=== PATIENT | female | born 1945 | race Caucasian/White ===

== ENCOUNTER 2017-02-03 21:20 | Inpatient (IN) ==
--- NOTE | 2017-02-03 22:16 | Emergency Department Note ---
Disposition Clinical Impression: Nausea and vomiting, Colitis, Diarrhea Disposition: Admitted As Inpatient Condition: Fair Referrals: NO,PCP [Primary Care Provider] - Forms: Work/School Release, ED Satisfaction Letter Time of Disposition: 00:24 Abdominal Pain HPI - General Chief Complaint: ED Abdominal Pain Stated Complaint: "Abd Pain/N/V/High BP" Time Seen by Provider: 02/03/17 21:58 Source: patient Mode of arrival: ambulatory Limitations: no limitations Nursing Notes Reviewed: Yes Vital Signs Reviewed: Yes - History of Present Illness HPI Narrative: This is a 71-year-old female who presents with abdominal pain in the upper abdomen with associated nausea and vomiting. Patient had a vagal episode in the lobby after vomiting where her blood pressure dropped and she became diaphoretic and weak. Patient states she hurts all over. Patient denies any diarrhea states she has actually been constipated. Patient has not had any urinary symptoms. Patient denies any chest pain or shortness of breath. Patient is a poor historian. Pt Subjective Complaint: abdominal pain Onset (ago): hour(s) (started this AM) Consistency: constant Location: epigastric Pain Severity: moderate Pain Scale: 8 - Related Data Allergies Allergy/AdvReac Type Severity Reaction Status Date / Time fexofenadine Allergy See Verified 12/22/16 12:05 [From Angie-D 12 Hour] Comments meperidine [From Demerol] Allergy Hives Verified 12/22/16 12:05 Nickel Allergy Rash Verified 12/22/16 12:05 nitrofurantoin Allergy Hives Verified 12/22/16 12:05 pseudoephedrine Allergy See Verified 12/22/16 12:05 [From Angie-D 12 Hour] Comments acetaminophen [From Tylenol] AdvReac Dizziness Verified 12/22/16 12:05 ampicillin AdvReac Dizziness Verified 02/03/17 22:02 bupivacaine [From Marcaine] AdvReac Hypotension Verified 02/03/17 22:02 cephalexin AdvReac Nausea Verified 02/03/17 22:02 ciprofloxacin [From Cipro] AdvReac Nausea Verified 02/03/17 22:02 clarithromycin [From Biaxin] AdvReac Nausea Verified 02/03/17 22:02 codeine AdvReac Nausea Verified 02/03/17 22:02 Erythromycin Base AdvReac Nausea Verified 02/03/17 22:02 esomeprazole [From Nexium] AdvReac Nausea Verified 02/03/17 22:02 estrogens, conjugated AdvReac Gastrointestinal Verified 02/03/17 22:02 [From Premarin] Upset Iodinated Contrast Media - AdvReac Nausea Verified 02/03/17 22:02 Oral and iodine AdvReac Nausea Verified 12/22/16 12:05 lidocaine AdvReac Hypotension Verified 12/22/16 12:05 lisinopril AdvReac Hypertensio Verified 12/22/16 12:05 n metformin AdvReac Dizziness Verified 12/22/16 12:05 moxifloxacin [From Avelox] AdvReac Nausea Verified 12/22/16 12:05 Oxycodone AdvReac Dizziness Verified 12/22/16 12:05 Paroxetine [From Paxil] AdvReac Nausea Verified 12/22/16 12:05 Penicillins AdvReac Dizziness Verified 12/22/16 12:05 Prilocaine AdvReac Hypotension Verified 12/22/16 12:05 prochlorperazine AdvReac Blurry Verified 12/22/16 12:05 [From Compazine] Vision Sulfa (Sulfonamide AdvReac Nausea Verified 12/22/16 12:05 Antibiotics) sulfamethoxazole AdvReac Nausea Verified 12/22/16 12:05 [From Bactrim] telmisartan [From Micardis] AdvReac Hypertensio Verified 12/22/16 12:05 n Tetracycline AdvReac Nausea Verified 12/22/16 12:05 trimethoprim [From Bactrim] AdvReac Nausea Verified 12/22/16 12:05 All systems ED: reviewed and negative except as stated. Constitutional: Reports: weakness. Denies: fever, chills, weight change Eyes: Denies: eye pain, eye discharge, vision change ENT ED: Denies: ear pain, throat pain, dental pain, hearing loss, epistaxis, congestion, dysphagia Cardiovascular: Denies: chest pain, palpitations, dyspnea on exertion, edema, syncope Respiratory: Denies: cough, dyspnea, wheezes, hemoptysis, stridor Gastrointestinal: Reports: abdominal pain, nausea, vomiting. Denies: diarrhea, constipation, hematemesis, melena, hematochezia Genitourinary: Denies: dysuria, frequency, hematuria, discharge Musculoskeletal: Reports: myalgia. Denies: back pain, neck pain, arthralgia Integumentary: Reports: other (sweating). Denies: rash, abrasion, lesions Neurological: Denies: headache, weakness, numbness, paresthesias, confusion, abnormal gait, vertigo Psychiatric: Denies: anxiety, depression, suicidal thoughts, homicidal thoughts , auditory hallucinations, visual hallucinations Endocrine: Denies: fatigue Hematological/Lymphatic: Denies: easy bleeding, easy bruising Allergic/Immunologic: Denies: facial swelling, urticaria Abdominal Pain PMH - Past Medical History Medical history: Reports: CVA, diabetes, hyperlipidemia, other Female Surgical History: Reports: appendectomy, hysterectomy - Social History Smoking status: Never smoker Alcohol use: Reports: none Drug use: Reports: none Physical Exam - General Limitations: no limitations General appearance: alert, in distress (yelling out for someone to help her) - Head Head exam: atraumatic, normocephalic, normal inspection - Eye Eye exam: Present: normal appearance, PERRL, EOMI - ENT ENT exam: normal exam, normal oropharynx, mucous membranes moist - Expanded ENT Exam External ear exam: Present: normal external inspection Mouth exam: Present: normal external inspection Teeth exam: Present: normal inspection Throat exam: Present: normal inspection - Neck Neck exam: Present: normal inspection, full ROM, trachea midline - Chest Chest inspection: Present: normal inspection, symmetric chest wall rise - Respiratory Respiratory exam: Present: normal lung sounds bilaterally - Cardiovascular Cardiovascular exam: Present: regular rate, normal rhythm, normal heart sounds - Abdominal Exam Abdominal exam: Present: soft, tenderness. Absent: distention, guarding, rebound, rigidity Abdominal tenderness: Present: RUQ, LUQ, epigastrium - Extremities Exam Extremities exam: Present: normal inspection, full ROM. Absent: tenderness, pedal edema - Expanded Upper Extremity Exam Shoulder exam: Present: normal inspection, full ROM Arm exam: Present: normal inspection, full ROM Elbow exam: Present: normal inspection, full ROM Forearm/Wrist exam: Present: normal inspection, full ROM Hand exam: Present: normal inspection, full ROM Vascular exam: Normal: capillary refill, radial pulse - Expanded Lower Extremity Exam Hip/Pelvis exam: Present: normal inspection, full ROM Upper leg exam: Present: normal inspection, full ROM Knee exam: Present: normal inspection, full ROM Lower leg exam: Present: normal inspection, full ROM Ankle exam: Present: normal inspection, full ROM Foot/toe exam: Present: normal inspection, full ROM Neurovascular/Tendon exam: Absent: motor deficit, sensory deficit, tendon deficit - Back Exam Back exam: Present: normal inspection, full ROM. Absent: tenderness - Neurological Exam Neurological exam: Present: alert, oriented X3 - Expanded Neurological Exam Patient oriented to: Present: person, place, time Coma Scale Eye Opening: Spontaneous Coma Scale Motor Response: Obeys Commands Coma Scale Verbal Response: Oriented Coma Scale Total: 15 - Psychiatric Psychiatric exam: Present: normal affect, normal mood - Skin Skin exam: Present: warm, intact, diaphoresis, pallor Course - Consultations Consultation #1: I spoke with the hospitalist Dr. Mary Grace lloyd to admit. Time: 00:24 Vital Signs Temperature 97.7 F 02/03/17 21:56 Pulse Rate 73 02/03/17 21:56 Respiratory Rate 20 02/03/17 21:56 Blood Pressure 81/48 02/03/17 21:56 O2 Sat by Pulse Oximetry 95 02/03/17 21:56 Temperature 97.7 F 02/03/17 21:56 Pulse Rate 73 02/03/17 21:56 Respiratory Rate 20 02/03/17 21:56 Blood Pressure 81/48 02/03/17 21:56 O2 Sat by Pulse Oximetry 95 02/03/17 21:56 Oxygen Delivery Oxygen Delivery Room Air Abdominal Pain - Medical Records Medical records reviewed: Yes I reviewed the patient's medical records. - Lab Data Lab results reviewed: Yes I reviewed the patient's lab results. Result diagrams: 02/03/17 22:28 02/03/17 22:28 Lab Results 02/03/17 02/03/17 02/03/17 Range/Units 22:00 22:28 22:28 WBC 15.0 H (4.3-11.1) K/mcL RBC 5.02 H (3.82-4.97) M/mcL Hgb 14.7 (11.5-15.4) g/dL Hct 43.8 (35.3-44.9) % MCV 87.3 (83.0-100.0) fL MCH 29.3 (28.0-33.3) pg MCHC 33.6 (31.6-35.5) g/dL RDW 12.7 (11.5-14.5) % Plt Count 258 (140-400) K/mcL MPV 8.8 L (9.4-12.4) fL Immature Gran % 0.5 (0-4) % Seg Neutrophils % 71.0 % Lymphocytes % 18.8 % Monocytes % 8.3 % Eosinophils % 0.9 % Basophils % 0.5 % Neutrophils # 10.6 H (1.6-8.9) K/mcL Lymphocytes # 2.8 (0.6-4.6) K/mcL Monocytes # 1.2 (0.0-1.3) K/mcL Eosinophils # 0.1 (0.0-0.6) K/mcL Basophils # 0.1 (0.0-0.2) K/mcL PT (9.4-12.1) Seconds INR APTT (26.0-36.0) Seconds Sodium 130 L (136-145) mEq/L Potassium 4.0 (3.5-4.5) mEq/L Chloride 100 (98-109) mEq/L Carbon Dioxide 19 (19-29) mEq/L BUN 14 (7-20) mg/dL Creatinine 0.96 (0.57-1.11) mg/dL Est GFR ( Amer) > 60 (> 60) Est GFR (Non-Af Amer) 57 L (> 60) BUN/Creatinine Ratio 15 (6-26) Glucose 191 H (70-99) mg/dL Calculated Osmolality 276 L (280-300) Calcium 10.4 (8.6-10.8) mg/dL Total Bilirubin 0.6 (0.2-1.2) mg/dL Direct Bilirubin 0.2 (0.0-0.5) mg/dL Indirect Bilirubin 0.4 (0.0-1.2) mg/dL AST 15 (5-34) Units/L ALT 15 (0-55) Units/L Alkaline Phosphatase 76 (38-126) Units/L Troponin I (0-0.03) ng/mL Serum Total Protein 7.1 (6.0-8.3) g/dL Albumin 4.1 (3.5-5.0) g/dL Globulin 3.0 (2.4-3.5) g/dL Albumin/Globulin Ratio 1.4 (1.1-2.2) Lipase 49 (8-78) Units/L Urine Color Dark Yellow (Yellow) Urine Clarity Cloudy A (Clear) Urine pH 7.0 (5.0-8.0) pH Units Ur Specific [place] 1.015 (1.010-1.025) Urine Protein Trace (Neg-Trace) mg/dL Urine Glucose (UA) 100 H (Normal) mg/dL Urine Ketones Negative (Negative) mg/dL Urine Blood Negative (Negative) Urine Nitrite Negative (Negative) Urine Bilirubin Negative (Negative) Urine Urobilinogen Normal (Normal) mg/dL Ur Leukocyte Esterase Moderate H (Negative) Urine Microscopic RBC 5-15 H (0-3) per hpf Urine Microscopic WBC 15-30 H (0-3) per hpf Ur Squamous Epith Cells Moderate H (None-Few) per lpf Urine Bacteria None Seen (None-Few) per hpf Hyaline Casts None Seen (None-Few) per lpf Ur Culture Indicated? YES A (NO) 02/03/17 02/03/17 Range/Units 22:28 22:28 WBC (4.3-11.1) K/mcL RBC (3.82-4.97) M/mcL Hgb (11.5-15.4) g/dL Hct (35.3-44.9) % MCV (83.0-100.0) fL MCH (28.0-33.3) pg MCHC (31.6-35.5) g/dL RDW (11.5-14.5) % Plt Count (140-400) K/mcL MPV (9.4-12.4) fL Immature Gran % (0-4) % Seg Neutrophils % % Lymphocytes % % Monocytes % % Eosinophils % % Basophils % % Neutrophils # (1.6-8.9) K/mcL Lymphocytes # (0.6-4.6) K/mcL Monocytes # (0.0-1.3) K/mcL Eosinophils # (0.0-0.6) K/mcL Basophils # (0.0-0.2) K/mcL PT 9.9 (9.4-12.1) Seconds INR 0.9 APTT 24.5 L (26.0-36.0) Seconds Sodium (136-145) mEq/L Potassium (3.5-4.5) mEq/L Chloride (98-109) mEq/L Carbon Dioxide (19-29) mEq/L BUN (7-20) mg/dL Creatinine (0.57-1.11) mg/dL Est GFR ( Amer) (> 60) Est GFR (Non-Af Amer) (> 60) BUN/Creatinine Ratio (6-26) Glucose (70-99) mg/dL Calculated Osmolality (280-300) Calcium (8.6-10.8) mg/dL Total Bilirubin (0.2-1.2) mg/dL Direct Bilirubin (0.0-0.5) mg/dL Indirect Bilirubin (0.0-1.2) mg/dL AST (5-34) Units/L ALT (0-55) Units/L Alkaline Phosphatase (38-126) Units/L Troponin I 0.00 (0-0.03) ng/mL Serum Total Protein (6.0-8.3) g/dL Albumin (3.5-5.0) g/dL Globulin (2.4-3.5) g/dL Albumin/Globulin Ratio (1.1-2.2) Lipase (8-78) Units/L Urine Color (Yellow) Urine Clarity (Clear) Urine pH (5.0-8.0) pH Units Ur Specific [place] (1.010-1.025) Urine Protein (Neg-Trace) mg/dL Urine Glucose (UA) (Normal) mg/dL Urine Ketones (Negative) mg/dL Urine Blood (Negative) Urine Nitrite (Negative) Urine Bilirubin (Negative) Urine Urobilinogen (Normal) mg/dL Ur Leukocyte Esterase (Negative) Urine Microscopic RBC (0-3) per hpf Urine Microscopic WBC (0-3) per hpf Ur Squamous Epith Cells (None-Few) per lpf Urine Bacteria (None-Few) per hpf Hyaline Casts (None-Few) per lpf Ur Culture Indicated? (NO) - Radiology Data Radiology results reviewed: Yes I reviewed the patient's radiology results. - EKG Data EKG attestation: Yes I reviewed and interpreted this EKG. EKG shows normal: sinus rhythm Rate: normal Rhythm: NSR [place]/QRS: normal Interpretation: no acute changes, nonspecific ST-T wave changes
[2017-02-03] MEDS ORDERED: Ondansetron 4 MG/2 ML VIAL IV ONE (22:18)
[2017-02-03] MEDS ORDERED: 0.9 % Sodium Chloride 1,000 ML IV SCH (22:30)
[2017-02-03 22:40] LABS: Basophils # 0.1 K/mcL (0.0-0.2); Basophils % 0.5 %; Eosinophils # 0.1 K/mcL (0.0-0.6); Eosinophils % 0.9 %; Hematocrit 43.8 % (35.3-44.9); Hemoglobin 14.7 g/dL (11.5-15.4); Immature Granulocytes % 0.5 % (0-4); Lymphocytes # 2.8 K/mcL (0.6-4.6); Lymphocytes % 18.8 %; Mean Corpuscular HGB Conc 33.6 g/dL (31.6-35.5); Mean Corpuscular Hemoglobin 29.3 pg (28.0-33.3); Mean Corpuscular Volume 87.3 fL (83.0-100.0); Mean Platelet Volume 8.8 fL (9.4-12.4); Monocytes # 1.2 K/mcL (0.0-1.3); Monocytes % 8.3 %; Neutrophils # 10.6 K/mcL (1.6-8.9); Platelet Count 258 K/mcL (140-400); Red Blood Count 5.02 M/mcL (3.82-4.97); Red Cell Distribution Width 12.7 % (11.5-14.5)
[2017-02-03] MEDS ORDERED: *HR* LORazepam 2 MG/ML VIAL IVP ONE (22:40)
[2017-02-03 22:45] LABS: INR 0.9; Prothrombin Time 9.9 Seconds (9.4-12.1)
[2017-02-03 22:47] LABS: Activated Partial Thrombo Time 24.5 Seconds (26.0-36.0)
[2017-02-03 22:57] LABS: Alanine Aminotransferase 15 Units/L (0-55); Albumin 4.1 g/dL (3.5-5.0); Albumin/Globulin Ratio 1.4 (1.1-2.2); Alkaline Phosphatase 76 Units/L (38-126); Aspartate Amino Transferase 15 Units/L (5-34); BUN/Creatinine Ratio 15 (6-26); Bilirubin,Direct 0.2 mg/dL (0.0-0.5); Bilirubin,Indirect 0.4 mg/dL (0.0-1.2); Bilirubin,Total 0.6 mg/dL (0.2-1.2); Blood Urea Nitrogen 14 mg/dL (7-20); Calcium 10.4 mg/dL (8.6-10.8); Carbon Dioxide 19 mEq/L (19-29); Chloride 100 mEq/L (98-109); Glucose 191 mg/dL (70-99); Lipase 49 Units/L (8-78); Osmolality,Calculated 276 (280-300); Sodium 130 mEq/L (136-145); Total Protein 7.1 g/dL (6.0-8.3); eGFR For African Americans > 60 (> 60); eGFR For Non-African Americans 57 (> 60)
[2017-02-03 22:59] LABS: Bilirubin,Urine Negative (Negative); Blood,Urine Negative (Negative); Clarity,Urine Cloudy (Clear); Color,Urine Dark Yellow (Yellow); Glucose,Urine (UA) 100 mg/dL (Normal); Ketones,Urine Negative (Negative); Leukocyte Esterase,Urine Moderate (Negative); Nitrite,Urine Negative (Negative); Protein,Urine Trace mg/dL (Neg-Trace); Specific Gravity,Urine 1.015 (1.010-1.025); Urobilinogen,Urine Normal (Normal)
[2017-02-03 23:03] LABS: Bacteria,Urine None Seen per hpf (None-Few); Hyaline Casts,Urine None Seen per lpf (None-Few); Squamous Epithelial Cell,Urine Moderate per lpf (None-Few); WBC,Urine 15-30 per hpf (0-3)
[2017-02-03] MEDS ORDERED: MetroNIDAZOLE 500 MG/100 ML 500 MG/100 ML BAG IVPB ONE (23:57)
[2017-02-04] MEDS ORDERED: *HR* Morphine 2 MG/ML SYRINGE IVP ONE (01:36)
[2017-02-04] MEDS ORDERED: 0.9 % Sodium Chloride 1,000 ML IVC SCH (03:30)
--- NOTE | 2017-02-04 08:03 | Internal Med History&Physical ---
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 fci insulin use status Qualified Code(s): E11.8 - Type 2 diabetes mellitus with unspecified complications (3) Hyperlipemia Current visit: Yes Status: Chronic resume home meds and check in am Qualifiers: Hyperlipidemia type: mixed hyperlipidemia Qualified Code(s): E78.2 - Mixed hyperlipidemia (4) Colitis Current visit: Yes Status: Acute presents with abd pain , nausea and vomitting ct shows colitis at splenic flexure will start on flagyl and cipro (5) Nausea and vomiting Current visit: Yes Status: Acute will start on iv hydration and zofran Qualifiers: Vomiting type: unspecified Vomiting Intractability: unspecified Qualified Code(s): R11.2 - Nausea with vomiting, unspecified Internal Medicine - H&P: HPI Chief complaint: abd pain, nausea and vomitting Admitted From: Emergency Dept Plans for Post Hospital Care: Home History of present illness: Ms. Carranza is a 71 year old female with history of diabetes, CVA, hypertension, high cholesterol, obesity, Patient presents to emergency room with abdominal pain left lower quadrant pain , nausea and vomiting . in the emergency room she had a vagal l episode when she had some vomiting breaking out in sweats . now she says she huts all over CT of the abdomen shows colitis at splenic flexure . Patient denies any fever or chills no chest pain no diarrhea or shortness of breath Past Med Surg Social Fam HX - Past Medical History Medical history: CVA, diabetes, hyperlipidemia, hypertension, other Psychiatric history: anxiety - Past Surgical History Surgical History: appendectomy, hysterectomy - Social History Smoking Status: Never smoker Alcohol use: none Drug use: none - Family History Mother Living Status: Age at : 50 Cause of : "Heart problems" Hx Family Cardiac Disorders: Yes (HTN) Hx Family Respiratory Disorders: No Hx Family Cancer: No Hx Family GI Disorders: No Hx Family Genitourinary Disorders: Yes (DM) Hx Family Endocrine Disorder: No Hx Family Musculoskeletal Disorders: No Hx Family Neuromuscular Disorders: No Hx Family Neurologic Disorders: No Hx Family HEENT Disorders: No Hx Family Autoimmune Disorders: No Hx Family Reproductive Disorders: No Hx Family Psychosocial Disorders: Yes (Anxiety, Depression) Internal Medicine - H&P: Meds Allergies fexofenadine [From Angie-D 12 Hour] Allergy (Verified 12/22/16 12:05) See Comments PATIENT UNSURE OF REACTION- meperidine [From Demerol] Allergy (Verified 12/22/16 12:05) Hives Nickel Allergy (Verified 12/22/16 12:05) Rash nitrofurantoin Allergy (Verified 12/22/16 12:05) Hives pseudoephedrine [From Angie-D 12 Hour] Allergy (Verified 12/22/16 12:05) See Comments PATIENT UNSURE OF REACTION- acetaminophen [From Tylenol] Adverse Reaction (Verified 12/22/16 12:05) Dizziness ampicillin Adverse Reaction (Verified 02/03/17 22:02) Dizziness bupivacaine [From Marcaine] Adverse Reaction (Verified 02/03/17 22:02) Hypotension cephalexin Adverse Reaction (Verified 02/03/17 22:02) Nausea ciprofloxacin [From Cipro] Adverse Reaction (Verified 02/03/17 22:02) Nausea clarithromycin [From Biaxin] Adverse Reaction (Verified 02/03/17 22:02) Nausea codeine Adverse Reaction (Verified 02/03/17 22:02) Nausea Erythromycin Base Adverse Reaction (Verified 02/03/17 22:02) Nausea esomeprazole [From Nexium] Adverse Reaction (Verified 02/03/17 22:02) Nausea estrogens, conjugated [From Premarin] Adverse Reaction (Verified 02/03/17 22:02) Gastrointestinal Upset Iodinated Contrast Media - Oral and Adverse Reaction (Verified 02/03/17 22:02) Nausea iodine Adverse Reaction (Verified 12/22/16 12:05) Nausea lidocaine Adverse Reaction (Verified 12/22/16 12:05) Hypotension lisinopril Adverse Reaction (Verified 12/22/16 12:05) Hypertension metformin Adverse Reaction (Verified 12/22/16 12:05) Dizziness moxifloxacin [From Avelox] Adverse Reaction (Verified 12/22/16 12:05) Nausea Oxycodone Adverse Reaction (Verified 12/22/16 12:05) Dizziness Paroxetine [From Paxil] Adverse Reaction (Verified 12/22/16 12:05) Nausea Penicillins Adverse Reaction (Verified 12/22/16 12:05) Dizziness Prilocaine Adverse Reaction (Verified 12/22/16 12:05) Hypotension prochlorperazine [From Compazine] Adverse Reaction (Verified 12/22/16 12:05) Blurry Vision Sulfa (Sulfonamide Antibiotics) Adverse Reaction (Verified 12/22/16 12:05) Nausea sulfamethoxazole [From Bactrim] Adverse Reaction (Verified 12/22/16 12:05) Nausea telmisartan [From Micardis] Adverse Reaction (Verified 12/22/16 12:05) Hypertension Tetracycline Adverse Reaction (Verified 12/22/16 12:05) Nausea trimethoprim [From Bactrim] Adverse Reaction (Verified 12/22/16 12:05) Nausea All Systems PM: A 10-system review of systems was performed and is negative for pertinent findings except as documented above in the HPI. - Constitutional Constitutional: no chills, no fever(s), no night sweats - EENT Eyes: no change in vision, no discharge, no pain, no photophobia Ears: no ear discharge, no ear pain, no tinnitus Nose, mouth and throat: no dysphagia, no nasal discharge, no neck pain, no sore throat - Cardiovascular Cardiovascular ROS IM: no chest pain, no diaphoresis, no dyspnea, no lightheadedness, no palpitations, no syncope - Respiratory Respiratory: no cough, no dyspnea, no wheezing, no excessive phlegm production - Gastrointestinal Gastrointestinal: abdominal pain, nausea - Genitourinary Genitourinary: no change in urinary stream, no dysuria, no flank pain, no hematuria - Musculoskeletal Musculoskeletal ROS IM: no numbness, no tingling - Integumentary Integumentary IM: no rash, no unusual bruising - Neurological Neurological ROS: no confusion, no convulsions, no focal weakness, no numbness, no tingling, no tremor(s) - Hematologic/Lymphatic Hematologic/Lymphatic: no easy bruising - Constitutional Vitals: Temp Pulse Resp BP Pulse Ox 97.7 F 71 12 136/60 95 02/03/17 21:56 02/04/17 03:30 03/28/17 03:30 02/04/17 03:30 02/04/17 03:30 - Head Head exam: Present: atraumatic, normocephalic - Eye Eye exam: Present: PERRL, conjuntiva pink, sclera anicteric Pupils: Present: PERRL - Neck Neck exam general surgery: Present: supple, trachea midline. Absent: lymphadenopathy - Respiratory Respiratory exam: Present: CTAB. Absent: accessory muscle use, rales, rhonchi, wheezes - Cardiovascular Cardiovascular exam: Present: RRR, +S1, +S2. Absent: diastolic murmur, gallop, rubs, systolic murmur - GI/Abdominal GI/Abdominal exam: Present: soft, tenderness - Extremities Exam Extremities exam: Present: warm, radial pulses palpable and symetrical. Absent : calf tenderness, cyanotic, pedal edema Internal Med - H&P Results - Labs CBC & Chem 7: 02/03/17 22:28 02/03/17 22:28
[2017-02-04] MEDS ORDERED: *HR* HYDROmorphone (PF) 1 MG/ML SYRINGE IVP PRN (08:13)
[2017-02-04] MEDS ORDERED: Naloxone 0.4 MG/ML INJ IVP PRN (08:13)
[2017-02-04] MEDS ORDERED: Ondansetron 4 MG/2 ML VIAL IVP PRN (08:13)
[2017-02-04] MEDS ORDERED: *HR* Dextrose 50 % in Water (Syg) 50 ML SYRINGE IVP PRN (08:18)
[2017-02-04] MEDS ORDERED: D5% in Water 1,000 ML IVC PRN (08:18)
[2017-02-04] MEDS ORDERED: Dextrose Gel 15 GM PO PRN ×2 (08:18)
[2017-02-04] MEDS: Pantoprazole 40 MG VIAL IVP SCH (09:44)
[2017-02-04] MEDS: MetroNIDAZOLE 500 MG/100 ML 500 MG/100 ML BAG IVPB SCH ×3 (09:46→20:02)
[2017-02-04] MEDS: Insulin LISPRO 300 UNITS/3 ML VIAL SQ SCH ×2 (12:06→16:27)
[2017-02-04] MEDS: 0.9 % Sodium Chloride 1,000 ML IVC SCH (20:01)
[2017-02-05] MEDS ORDERED: Simethicone 80 MG TAB.CHEW PO ONE (03:30)
[2017-02-05] MEDS: MetroNIDAZOLE 500 MG/100 ML 500 MG/100 ML BAG IVPB SCH ×4 (03:42→21:23)
[2017-02-05] MEDS: Insulin LISPRO 300 UNITS/3 ML VIAL SQ SCH ×5 (03:58→21:24)
[2017-02-05 05:12] LABS: BUN/Creatinine Ratio 10 (6-26); Blood Urea Nitrogen 7 mg/dL (7-20); Carbon Dioxide 22 mEq/L (19-29); Chloride 104 mEq/L (98-109); Cholesterol 163 mg/dL (< 200); Glucose 128 mg/dL (70-99); HDL Cholesterol 41 mg/dL (40-59); LDL Cholesterol,Calculated 101 mg/dL (0-99); Osmolality,Calculated 272 (280-300); Potassium 3.8 mEq/L (3.5-4.5); Sodium 131 mEq/L (136-145); Triglycerides 106 mg/dL (< 150); eGFR For African Americans > 60 (> 60); eGFR For Non-African Americans > 60 (> 60)
[2017-02-05] MEDS: *HR* Enoxaparin 40 MG/0.4 ML SYRINGE SQ SCH (05:12)
[2017-02-05] MEDS: Pantoprazole 40 MG VIAL IVP SCH (07:55)
--- NOTE | 2017-02-05 08:15 | Electrocardiograph Report ---
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
[2017-02-05] MEDS: 0.9 % Sodium Chloride 1,000 ML IVC SCH (12:44)
--- NOTE | 2017-02-05 16:52 | Internal Med Progress Note ---
Date of Encounter: 02/05/17 Time of Encounter: 10:25 - Assessment and plan (1) Colitis Status: Acute Assessment and plan: continue Flagyl. DC ciprofloxacin. We will add ceftriaxone instead. Clinically improving. Advance diet as tolerated. Moderate risk for complications. (2) Nausea and vomiting Status: Acute Assessment and plan: improving. Continue antiemetics as needed Qualifiers: Vomiting type: unspecified Vomiting Intractability: unspecified Qualified Code(s): R11.2 - Nausea with vomiting, unspecified (3) Diabetes Status: Chronic Assessment and plan: well controlled. No changes at this time. 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 Qualifiers: Hypertension type: essential hypertension Qualified Code(s): I10 - Essential (primary) hypertension - Subjective Interval history: Patient is awake and alert. Feels better today. Pain is improving. mild nausea. Tolerating clear liquid diet well - Constitutional Vitals: Temp Pulse Resp BP Pulse Ox 98.6 F 79 16 134/99 98 02/05/17 14:22 02/05/17 14:22 02/05/17 14:22 02/05/17 14:22 02/05/17 14:22 General appearance: Present: cooperative, A&O X 3, no acute distress, answers questions appropriately - Respiratory Respiratory exam: Present: CTAB. Absent: accessory muscle use, rales, rhonchi, wheezes - Cardiovascular Cardiovascular exam: Present: RRR, +S1, +S2. Absent: diastolic murmur, gallop, rubs, systolic murmur - GI/Abdominal GI/Abdominal exam: Present: normal bowel sounds, soft, tenderness (left lower quadrant), no peritoneal signs. Absent: distended - Neurological Exam Neurological exam: Present: alert, oriented X3, no focal deficits. Absent: facial droop, speech deficit - Skin Skin exam: Present: dry, intact Internal Medicine: Result - Labs CBC & Chem 7: 02/06/17 05:18 02/06/17 05:18 Labs: BMP 02/05/17 04:14 Sodium 131 L Potassium 3.8 Chloride 104 Carbon Dioxide 22 BUN 7 Creatinine 0.67 Glucose 128 H Calcium 8.0 L D - ABG Interpretation ABG results: PT/INR, D-dimer PT 9.9 Seconds (9.4-12.1) 02/03/17 22:28 Consult Discharge Plan - Plan Instructions: Diabetes Mellitus Type 2 in Adults (DC), Chronic Hypertension (DC ) Additional Instructions: With GI in 3-4 weeks for follow up and possible colonoscopy Referrals: Derek Maharaj Jr, MD [Primary Care Provider] - 02/14/17 2:30 pm Adan Keating MD [Partnered Physician] - 02/27/17 3:50 pm Prescriptions: Ondansetron HCl [Zofran] 4 mg PO Q8HR PRN #15 tablet PRN Reason: Nausea And Vomiting Cefdinir [Omnicef] 300 mg PO BID #16 capsule MetroNIDAZOLE [Flagyl] 500 mg PO TID #20 tablet - Attending Attestation This document has been at least partially created by GI Track recognition technology by Dr. Espitia. Errors in grammar, wording or other phrases may exist. If errors are found after the documentation is signed, they will be addressed individually in the addendum section of this document when appropriate.
[2017-02-06] MEDS ORDERED: Mag Hydrox/Al Hydrox/Simeth 30 ML UDC PO PRN (00:42)
[2017-02-06] MEDS ORDERED: Simethicone 80 MG TAB.CHEW PO STA (00:42)
[2017-02-06] MEDS: MetroNIDAZOLE 500 MG/100 ML 500 MG/100 ML BAG IVPB SCH ×2 (02:39→08:34)
[2017-02-06] MEDS: 0.9 % Sodium Chloride 1,000 ML IVC SCH (04:43)
[2017-02-06] MEDS: *HR* Enoxaparin 40 MG/0.4 ML SYRINGE SQ SCH (05:25)
[2017-02-06 06:30] LABS: Basophils # 0.1 K/mcL (0.0-0.2); Basophils % 0.6 %; Eosinophils # 0.1 K/mcL (0.0-0.6); Eosinophils % 0.9 %; Hematocrit 36.4 % (35.3-44.9); Immature Granulocytes % 0.4 % (0-4); Lymphocytes # 1.8 K/mcL (0.6-4.6); Lymphocytes % 17.2 %; Mean Corpuscular HGB Conc 33.5 g/dL (31.6-35.5); Mean Corpuscular Hemoglobin 29.7 pg (28.0-33.3); Mean Corpuscular Volume 88.6 fL (83.0-100.0); Mean Platelet Volume 9.1 fL (9.4-12.4); Monocytes # 0.9 K/mcL (0.0-1.3); Monocytes % 8.8 %; Neutrophils # 7.5 K/mcL (1.6-8.9); Platelet Count 210 K/mcL (140-400); Red Blood Count 4.11 M/mcL (3.82-4.97); Red Cell Distribution Width 13.2 % (11.5-14.5); Segmented Neutrophils % 72.1 %
[2017-02-06 06:33] LABS: Hemoglobin 12.2 g/dL (11.5-15.4)
[2017-02-06 06:36] VITALS: BP 148/72
[2017-02-06 06:47] LABS: BUN/Creatinine Ratio 9 (6-26); Blood Urea Nitrogen 6 mg/dL (7-20); Calcium 8.2 mg/dL (8.6-10.8); Carbon Dioxide 21 mEq/L (19-29); Chloride 105 mEq/L (98-109); Glucose 114 mg/dL (70-99); Osmolality,Calculated 276 (280-300); Potassium 3.5 mEq/L (3.5-4.5); Sodium 134 mEq/L (136-145); eGFR For African Americans > 60 (> 60); eGFR For Non-African Americans > 60 (> 60)
[2017-02-06] MEDS: Insulin LISPRO 300 UNITS/3 ML VIAL SQ SCH (08:31)
--- NOTE | 2017-02-06 08:36 | Discharge Summary ---
Date of Encounter: 02/06/17 Time of Encounter: 08:31 - Discharge Diagnosis (1) Colitis Priority: Primary Status: Acute (2) Nausea and vomiting Priority: Secondary Status: Acute Qualifiers: Vomiting type: unspecified Vomiting Intractability: unspecified Qualified Code(s): R11.2 - Nausea with vomiting, unspecified (3) HTN (hypertension) Priority: Secondary Status: Chronic Qualifiers: Hypertension type: essential hypertension Qualified Code(s): I10 - Essential (primary) hypertension (4) Diabetes Priority: Secondary Status: Chronic Qualifiers: Diabetes mellitus type: type 2 Diabetes mellitus complication status: with unspecified complications Diabetes mellitus meterman insulin use: unspecified fdc insulin use status Qualified Code(s): E11.8 - Type 2 diabetes mellitus with unspecified complications (5) Hyperlipemia Priority: Secondary Status: Chronic Qualifiers: Hyperlipidemia type: mixed hyperlipidemia Qualified Code(s): E78.2 - Mixed hyperlipidemia - Discharge Medications Prescriptions: Ondansetron HCl [Zofran] 4 mg PO Q8HR PRN #15 tablet PRN Reason: Nausea And Vomiting Cefdinir [Omnicef] 300 mg PO BID #16 capsule MetroNIDAZOLE [Flagyl] 500 mg PO TID #20 tablet Home Medications: Amlodipine [Norvasc] 5 mg PO DAILY 02/04/17 [History] Aspirin 81 mg PO DAILY 02/04/17 [History] Calcium Carbonate/Vitamin D3 [Calcium 600 + Vit D Tablet] 2 each PO DAILY [History] Cyclosporine [Restasis] 1 drop BOTH EYES BID 02/04/17 [History] LORazepam [Ativan] 1 mg PO DAILY 02/04/17 [History] Levothyroxine [Synthroid] 88 mcg PO 0630 02/04/17 [History] Losartan Potassium [Cozaar] 50 mg PO DAILY 02/04/17 [History] Valacyclovir [Valtrex] 500 mg PO BID 02/04/17 [History] Cefdinir [Omnicef] 300 mg PO BID #16 capsule 02/06/17 [Rx] MetroNIDAZOLE [Flagyl] 500 mg PO TID #20 tablet 02/06/17 [Rx] Ondansetron HCl [Zofran] 4 mg PO Q8HR PRN #15 tablet 02/06/17 [Rx] Allergies/Adverse Reactions: Allergies fexofenadine [From Angie-D 12 Hour] Allergy (Verified 02/04/17 08:22) See Comments PATIENT UNSURE OF REACTION- meperidine [From Demerol] Allergy (Verified 02/04/17 08:22) Hives Nickel Allergy (Verified 02/04/17 08:22) Rash nitrofurantoin Allergy (Verified 02/04/17 08:22) Hives pseudoephedrine [From Angie-D 12 Hour] Allergy (Verified 02/04/17 08:22) See Comments PATIENT UNSURE OF REACTION- acetaminophen [From Tylenol] Adverse Reaction (Verified 02/04/17 08:22) Dizziness ampicillin Adverse Reaction (Verified 02/04/17 08:22) Dizziness bupivacaine [From Marcaine] Adverse Reaction (Verified 02/04/17 08:22) Hypotension cephalexin Adverse Reaction (Verified 02/04/17 08:22) Nausea ciprofloxacin [From Cipro] Adverse Reaction (Verified 02/04/17 08:22) Nausea clarithromycin [From Biaxin] Adverse Reaction (Verified 02/04/17 08:22) Nausea codeine Adverse Reaction (Verified 02/04/17 08:22) Nausea Erythromycin Base Adverse Reaction (Verified 02/04/17 08:22) Nausea esomeprazole [From Nexium] Adverse Reaction (Verified 02/04/17 08:22) Nausea estrogens, conjugated [From Premarin] Adverse Reaction (Verified 02/04/17 08:22) Gastrointestinal Upset Iodinated Contrast Media - Oral and Adverse Reaction (Verified 02/04/17 08:22) Nausea iodine Adverse Reaction (Verified 02/04/17 08:22) Nausea lidocaine Adverse Reaction (Verified 02/04/17 08:22) Hypotension lisinopril Adverse Reaction (Verified 02/04/17 08:22) Hypertension metformin Adverse Reaction (Verified 02/04/17 08:22) Dizziness moxifloxacin [From Avelox] Adverse Reaction (Verified 02/04/17 08:22) Nausea Oxycodone Adverse Reaction (Verified 02/04/17 08:22) Dizziness Paroxetine [From Paxil] Adverse Reaction (Verified 02/04/17 08:22) Nausea Penicillins Adverse Reaction (Verified 02/04/17 08:22) Dizziness Prilocaine Adverse Reaction (Verified 02/04/17 08:22) Hypotension prochlorperazine [From Compazine] Adverse Reaction (Verified 02/04/17 08:22) Blurry Vision Sulfa (Sulfonamide Antibiotics) Adverse Reaction (Verified 02/04/17 08:22) Nausea sulfamethoxazole [From Bactrim] Adverse Reaction (Verified 02/04/17 08:22) Nausea telmisartan [From Micardis] Adverse Reaction (Verified 02/04/17 08:22) Hypertension Tetracycline Adverse Reaction (Verified 02/04/17 08:22) Nausea trimethoprim [From Bactrim] Adverse Reaction (Verified 02/04/17 08:22) Nausea Date of admission: 02/04/17 08:42 Primary care physician: Derek Maharaj Jr, MD Discharging clinician: Lisa Espitia Anticipated date of discharge: 02/06/17 - Patient Status Disposition: Home, Self-Care Condition: Good Functional capacity at discharge: independent ambulation Overall status at discharge: patient is progressing back to baseline - Discharge Instructions Instructions: Diabetes Mellitus Type 2 in Adults (DC), Chronic Hypertension (DC ) Follow Up With: Derek Maharaj Jr, MD [Primary Care Provider] - 02/14/17 2:30 pm Additional Instructions: With GI in 3-4 weeks for follow up and possible colonoscopy - Diet and Activity Activity: resume usual activities as tolerated Diet: advance to your usual diet, diabetic diet, low salt diet Hospital course: Ms. Carranza is a 71 year old female patient with history of diabetes mellitus type 2, hypertension who was admitted here with acute colitis. She was treated with intravenous antibiotics with improvement in her symptoms. She is now tolerating oral diet with minimal pain and nausea. She received IV ceftriaxone and flagyl without any issues. She is stable for discharge and will be discharged on Omnicef and Flagyl. Follow up with GI as outpatient for colonoscopy. - Time Spent with Patient Total time spent providing and/or coordinating discharge services: Less than 30 minutes (25 min) - Constitutional Vitals: Temp Pulse Resp BP Pulse Ox 98.5 F 71 16 148/72 94 L 02/06/17 06:34 02/06/17 06:34 02/06/17 06:34 02/06/17 06:34 02/06/17 06:34 General appearance: Present: cooperative, A&O X 3, answers questions appropriately - Neck Neck exam general surgery: Present: supple, trachea midline. Absent: lymphadenopathy - Respiratory Respiratory exam: Present: CTAB. Absent: accessory muscle use, rales, rhonchi, wheezes - Cardiovascular Cardiovascular exam: Present: RRR, +S1, +S2. Absent: diastolic murmur, gallop, rubs, systolic murmur - GI/Abdominal GI/Abdominal exam: Present: normal bowel sounds, soft, no peritoneal signs. Absent: distended, tenderness - Extremities Exam Extremities exam: Present: warm, radial pulses palpable and symetrical. Absent : calf tenderness, cyanotic, pedal edema - Neurological Exam Neurological exam: Present: alert, CN II-XII intact, oriented X3, no focal deficits. Absent: facial droop, speech deficit - Skin Skin exam: Present: dry, intact - Attending Attestation This document has been at least partially created by [employer] voice recognition technology by Dr. Espitia. Errors in grammar, wording or other phrases may exist. If errors are found after the documentation is signed, they will be addressed individually in the addendum section of this document when appropriate.
[2017-02-06] MEDS ORDERED: *HR* LORazepam 1 MG TABLET PO SCH (09:00)
[2017-02-06] MEDS ORDERED: Aspirin 81 MG TAB.CHEW PO SCH (09:00)
[2017-02-06] MEDS ORDERED: amLODIPine 5 MG TABLET PO SCH (09:00)
== END 2017-02-06 09:40 | disposition home or self-care (01) | DRG 392 ==
LOC: EMEROO 21:20 → 3ANU 21:20 → SUATTDRO 02-04 08:42 → 3ANU 02-04 12:48
PROVIDERS: ADMIT Internal Medicine; ATTEND Internal Medicine

== ENCOUNTER 2017-10-15 09:46 | Observation (INO) ==
[2017-10-15] MEDS ORDERED: Aspirin 81 MG TAB.CHEW PO ONE (10:01)
--- NOTE | 2017-10-15 10:07 | Emergency Department Note ---
Disposition Clinical Impression: Chest pain of uncertain etiology Disposition: Admitted As Inpatient Condition: Good Time of Disposition: 16:03 Chest Pain HPI - General Chief Complaint: ED Chest Pain Stated Complaint: chest heaviness Time Seen by Provider: 10/15/17 09:53 Source: patient Limitations: no limitations Vital Signs Reviewed: Yes Nursing Notes Reviewed: Yes - History of Present Illness HPI Narrative: Mrs. Carranza, 72-year-old female, presents from home for evaluation of chest heaviness. Onset this morning and persistent until her arrival to this facility. She is asymptomatic at this time. While symptomatic, she had radiation to her left upper extremity with with dyspnea. No diaphoresis, nausea , vomiting. Patient's primary concern at this time a stroke. He reports that she had some difficulty with walking and nearly fell over while ambulating up to triage. PMH: Hypertension. Hyperlipidemia-not medicated. Diabetes type 2-not medicated. History of CVA in 2003. Patient had a heart catheter in 2003 which she reports was concave bend with the workup for CVA. No stents were placed. Patient has multiple medication allergies since the unmedicated hyperlipidemia and diabetes. No history of COPD, CAD, ACS. Habits: Has never smoked, never consumed EtOH, never consumed any illicit substances. Severity scale (1-10): 6 - Related Data Home Medications Medication Instructions Recorded Confirmed Aspirin 81 mg PO DAILY 02/04/17 10/15/17 Calcium Carbonate/Vitamin D3 2 tab PO DAILY 02/04/17 10/15/17 [Calcium 600 + Vit D Tablet] Cyclosporine [Restasis] 1 drop BOTH EYES BID 02/04/17 10/15/17 LORazepam [Ativan] 0.5 - 1 mg PO DAILY PRN 02/04/17 10/15/17 Levothyroxine [Synthroid] 88 mcg PO DAILY 02/04/17 10/15/17 Losartan Potassium [Cozaar] 50 mg PO BID 02/04/17 10/15/17 valACYclovir [Valtrex] 500 mg PO BID 02/04/17 10/15/17 Glucosamn/Condroitn/C/Mn/[place] 1 tab PO DAILY 03/31/17 10/15/17 [[facility] Glucosamine Chondroitin Tb] Ciclopirox 1 appl TP BID 10/15/17 10/15/17 Desonide [Tridesilon] 1 appl TP BID 10/15/17 10/15/17 Metoprolol XL (24 HR) Succ [Toprol 25 mg PO BID 10/15/17 10/15/17 Xl] Allergies Allergy/AdvReac Type Severity Reaction Status Date / Time fexofenadine Allergy See Verified 10/15/17 11:18 [From Angie-D 12 Hour] Comments meperidine [From Demerol] Allergy Hives Verified 10/15/17 11:18 Nickel Allergy Rash Verified 10/15/17 11:18 nitrofurantoin Allergy Hives Verified 10/15/17 11:18 pseudoephedrine Allergy See Verified 10/15/17 11:18 [From Angie-D 12 Hour] Comments acetaminophen [From Tylenol] AdvReac Dizziness Verified 10/15/17 11:18 ampicillin AdvReac Dizziness Verified 10/15/17 11:18 bupivacaine [From Marcaine] AdvReac Hypotension Verified 10/15/17 11:18 cephalexin AdvReac Nausea Verified 10/15/17 11:18 ciprofloxacin [From Cipro] AdvReac Nausea Verified 10/15/17 11:18 clarithromycin [From Biaxin] AdvReac Nausea Verified 10/15/17 11:18 codeine AdvReac Nausea Verified 10/15/17 11:18 Erythromycin Base AdvReac Nausea Verified 10/15/17 11:18 esomeprazole [From Nexium] AdvReac Nausea Verified 10/15/17 11:18 estrogens, conjugated AdvReac Gastrointestinal Verified 10/15/17 11:18 [From Premarin] Upset Iodinated Contrast- Oral and AdvReac Nausea Verified 10/15/17 11:18 IV Dye [Iodinated Contrast Media - Oral and] iodine AdvReac Nausea Verified 10/15/17 11:18 lidocaine AdvReac Hypotension Verified 10/15/17 11:18 lisinopril AdvReac Hypertensio Verified 10/15/17 11:18 n metformin AdvReac Dizziness Verified 10/15/17 11:18 moxifloxacin [From Avelox] AdvReac Nausea Verified 10/15/17 11:18 Oxycodone AdvReac Dizziness Verified 10/15/17 11:18 Paroxetine [From Paxil] AdvReac Nausea Verified 10/15/17 11:18 Penicillins AdvReac Dizziness Verified 10/15/17 11:18 Prilocaine AdvReac Hypotension Verified 10/15/17 11:18 prochlorperazine AdvReac Blurry Verified 10/15/17 11:18 [From Compazine] Vision Sulfa (Sulfonamide AdvReac Nausea Verified 10/15/17 11:18 Antibiotics) sulfamethoxazole AdvReac Nausea Verified 10/15/17 11:18 [From Bactrim] telmisartan [From Micardis] AdvReac Hypertensio Verified 10/15/17 11:18 n Tetracycline AdvReac Nausea Verified 10/15/17 11:18 trimethoprim [From Bactrim] AdvReac Nausea Verified 10/15/17 11:18 All systems ED: reviewed and negative except as stated. 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 HEENT: No facial asymmetry. Head is normocephalic and atraumatic. PERRLA, EOMI. oral mucosa moist. Trachea midline. Cardiovascular: Heart regular rate and rhythm without clicks, rubs, gallops, or murmurs. No JVD. PMI nondisplaced. Bilateral radial pulses 2/44. Respiratory: Symmetric chest rise with good respiratory effort. Bilateral breath sounds are clear without wheezing, crackles, or rhonchi. Abdomen: Bowel sounds present normoactivex-4 quadrants. Abdomen is soft, nondistended, and nontender. No organomegaly noted. Musculoskeletal: Muscle strength 5/5 and symmetric bilaterally in upper and lower extremities. Neuro: Mild droop of the right side of patient's mouth; no flattening of nasolabial folds. No altered sensation to light touch and patient's face, upper extremities, or lower extremities. No limited ataxia, no pronator drift. No dysarthria or aphasia. Psych: Patient's affect is appropriate for situation. - General Limitations: no limitations General appearance: alert, in no apparent distress Course Course Narrative: While patient was being roomed, staff noted abrupt onset of droop of right corner of mouth. Patient was immediately assessed and found to have no other neurologic deficit. NIHSS 1. Will perform chest pain workup as well as stroke workup; will not call code stroke at this time. We will continue reassessing the patient. 10:00. The patient's son, Al Carranza (nicknambrian Knapp), called. I discussed the initial physical exam and vital signs with the patient's son. All laboratory workup and imaging is pending. I will call him back with more information once it is available. His cell phone: [phone]. On reassessment, patient has no neurologic symptoms at this time. No facial droop. She has been asymptomatic, alert, awake throughout her stay in the emergency department. Patient's chest x-ray is unremarkable. EKG is unchanged from previous and troponin is not elevated. There was concern for ascending aortic dissection; CTA chest abdomen pelvis with pretreatment showed no dissection and patient had no adverse reaction. I discussed the above with the patient as well as my concern for acute coronary syndrome and my inability to rule out at this time. She is agreeable to coming in for rule out of acute coronary syndrome. I discussed the patient with the admitting hospitalist, Dr. Summers, who agrees to accept the patient for continued manager telemetry for chest pain rule out ACS. 15:50 I called the patient's son, Al Carranza. I discussed within the above as well as the plan of care for continued evaluation and management. We discussed risk factors for cardiac ischemia in the context of patient's presentation and laboratory findings. Additionally, we discussed the patient's initial concern for CVA and my repeated neurologic exam as well as unremarkable CT area patient has no focal neurologic deficits at this time and, will be admitted to the floor for continued evaluation and management. He is in agreement with this plan of care and has no additional questions or concerns at this time. 16:15 Patient re-evaluated. I watched her transition to sitting upright at bedside without difficulty. No focal deficits observable at this time. Patient denies chest pain. She remains stable with vital signs WNL. Vital Signs Temperature 98.8 F 10/15/17 09:46 Pulse Rate 95 10/15/17 09:46 Respiratory Rate 16 10/15/17 09:46 Blood Pressure 205/121 10/15/17 09:46 O2 Sat by Pulse Oximetry 97 10/15/17 09:46 Temperature 97.5 F L 12/09/17 15:22 Pulse Rate 89 10/18/17 15:22 Respiratory Rate 18 10/18/17 15:22 Blood Pressure 177/77 10/18/17 15:22 O2 Sat by Pulse Oximetry 97 10/18/17 15:22 Oxygen Delivery Oxygen Delivery Room Air Chest Pain - Lab Data Lab results reviewed: Yes I reviewed the patient's lab results. Result diagrams: 10/18/17 06:15 10/18/17 06:15 Lab Results 10/15/17 10/15/17 10/15/17 Range/Units 10:11 10:26 10:26 WBC 6.6 (4.3-11.1) K/mcL RBC 4.83 (3.82-4.97) M/mcL Hgb 14.4 (11.5-15.4) g/dL Hct 41.5 (35.3-44.9) % MCV 85.9 (83.0-100.0) fL MCH 29.8 (28.0-33.3) pg MCHC 34.7 (31.6-35.5) g/dL RDW 12.6 (11.5-14.5) % Plt Count 243 (140-400) K/mcL MPV 8.9 L (9.4-12.4) fL Immature Gran % 0.5 (0-4) % Seg Neutrophils % 71.3 % Lymphocytes % 17.9 % Monocytes % 9.2 % Eosinophils % 0.5 % Basophils % 0.6 % Neutrophils # 4.7 (1.6-8.9) K/mcL Lymphocytes # 1.2 (0.6-4.6) K/mcL Monocytes # 0.6 (0.0-1.3) K/mcL Eosinophils # 0.0 (0.0-0.6) K/mcL Basophils # 0.0 (0.0-0.2) K/mcL PT 11.0 (9.4-12.1) Seconds INR 1.0 APTT 28.7 (26.0-36.0) Seconds Sodium (136-145) mEq/L Potassium (3.5-4.5) mEq/L Chloride (98-109) mEq/L Carbon Dioxide (19-29) mEq/L BUN (7-20) mg/dL Creatinine (0.57-1.11) mg/dL Est GFR ( Amer) (> 60) Est GFR (Non-Af Amer) (> 60) BUN/Creatinine Ratio (6-26) Glucose (70-99) mg/dL POC Glucose 116 H (58-89) Calculated Osmolality (280-300) Calcium (8.6-10.8) mg/dL Troponin I (0-0.03) ng/mL 10/15/17 10/15/17 Range/Units 10:26 10:26 WBC (4.3-11.1) K/mcL RBC (3.82-4.97) M/mcL Hgb (11.5-15.4) g/dL Hct (35.3-44.9) % MCV (83.0-100.0) fL MCH (28.0-33.3) pg MCHC (31.6-35.5) g/dL RDW (11.5-14.5) % Plt Count (140-400) K/mcL MPV (9.4-12.4) fL Immature Gran % (0-4) % Seg Neutrophils % % Lymphocytes % % Monocytes % % Eosinophils % % Basophils % % Neutrophils # (1.6-8.9) K/mcL Lymphocytes # (0.6-4.6) K/mcL Monocytes # (0.0-1.3) K/mcL Eosinophils # (0.0-0.6) K/mcL Basophils # (0.0-0.2) K/mcL PT (9.4-12.1) Seconds INR APTT (26.0-36.0) Seconds Sodium 128 L (136-145) mEq/L Potassium 3.8 (3.5-4.5) mEq/L Chloride 94 L (98-109) mEq/L Carbon Dioxide 22 (19-29) mEq/L BUN 10 (7-20) mg/dL Creatinine 0.70 (0.57-1.11) mg/dL Est GFR ( Amer) > 60 (> 60) Est GFR (Non-Af Amer) > 60 (> 60) BUN/Creatinine Ratio 14 (6-26) Glucose 115 H (70-99) mg/dL POC Glucose (58-89) Calculated Osmolality 266 L (280-300) Calcium 9.3 (8.6-10.8) mg/dL Troponin I 0.00 (0-0.03) ng/mL - Radiology Data Radiology results reviewed: Yes I reviewed the patient's radiology results. Chest X-Ray 10/15/17 10:01 IMPRESSION: 1. No convincing acute cardiopulmonary abnormality. 2. Mild elevation of the left hemidiaphragm. D/ / Best Landrum MD / Best Landrum MD Interpreting Provider: Best Landrum MD Head CT 10/15/17 10:02 IMPRESSION: 1. No acute intracranial abnormality. 2. Moderate chronic microvascular ischemic change. 3. Scattered atherosclerosis. D/ / Best Landrum MD / Best Landrum MD Interpreting Provider: Best Landrum MD Abdomen/Pelvis CTA 10/15/17 13:15 IMPRESSION: No thoracic or abdominal aortic aneurysm or dissection is identified. No pulmonary emboli are seen. There appears to be an endobronchial mass identified within the distal aspect of the right upper lobe bronchus, which then extends into multiple segmental bronchi from this central aspect. Differential considerations include malignancy, though a non malignant differential consideration is allergic bronchopulmonary aspergillosis. Recommend further evaluation with bronchoscopy and possible biopsy. No mediastinal lymphadenopathy or spiculated lung mass is identified. Benign-appearing liver cysts and small right renal cyst, as well as a partially calcified cystic lesion in the spleen which appears stable. Mild left-sided hydronephrosis and hydroureter, as well as a moderately distended bladder. Uncertain if this could be related to urinary outlet obstruction. No urinary tract calcification or obstructive mass. There is a small 7 mm hyperenhancing focal lesion seen within the spleen, with differential considerations including benign etiology such as a small hemangioma. A neoplastic process cannot be entirely excluded, and further evaluation could be obtained with PET versus MRI versus biopsy per ACR criteria, though I would not recommend a splenic biopsy for workup. Small suspected 4-6 mm nodules seen in the left thyroid lobe, though somewhat difficult to evaluate given artifact from patient's cardiac leads. Follow up based on recommendations detailed below, which based on the size, no follow-up ultrasound is felt necessary given patient's age unless the patient is at risk for thyroid cancer or has symptomatic thyroid disease. Diverticulosis without acute diverticulitis. RECOMMENDATIONS: Managing Incidental Thyroid Nodule Detected at CT or MRI or US 1. Further evaluation by thyroid Ultrasound recommended for these incidental nodules: Patient Age 18 years or less - Any nodule. Patient Age 19-34 years old - Nodule 1 cm in size or greater Patient Age 35 years or more - Nodule 1.5 cm in size or greater 2. Follow up thyroid ultrasound also recommend in these scenarios -Solitary nodule with high risk imaging features (locally invasive nodule or suspicious lymph nodes) -Any nodule in a heterogeneous enlarged thyroid gland 3. NO further imaging is recommended in the following scenarios -No f/u imaging is recommended for ITNs not meeting the above criteria. -No US or f/u recommended for ITNs without high risk features in pts. with limited life expectancy or significant co-morbidities, unless clinically warranted. Note: These recommendations do not apply to pts. w/ increased risk for thyroid cancer or pts. with symptomatic thyroid disease. Recommendations for f/u of Incidental Thyroid Nodules (ITN) found on CT, MR, NM and Extrathyroidal US are based upon the ACR white paper and Zimmer 3-tiered system for managing ITNs: J Am Dion Radiol. 2015 Dec;12(2): 143-50 D/ / Ld Larsen MD / Ld Larsen MD Interpreting Provider: Ld Larsen MD Chest CTA 10/15/17 13:15 IMPRESSION: No thoracic or abdominal aortic aneurysm or dissection is identified. No pulmonary emboli are seen. There appears to be an endobronchial mass identified within the distal aspect of the right upper lobe bronchus, which then extends into multiple segmental bronchi from this central aspect. Differential considerations include malignancy, though a non malignant differential consideration is allergic bronchopulmonary aspergillosis. Recommend further evaluation with bronchoscopy and possible biopsy. No mediastinal lymphadenopathy or spiculated lung mass is identified. Benign-appearing liver cysts and small right renal cyst, as well as a partially calcified cystic lesion in the spleen which appears stable. Mild left-sided hydronephrosis and hydroureter, as well as a moderately distended bladder. Uncertain if this could be related to urinary outlet obstruction. No urinary tract calcification or obstructive mass. There is a small 7 mm hyperenhancing focal lesion seen within the spleen, with differential considerations including benign etiology such as a small hemangioma. A neoplastic process cannot be entirely excluded, and further evaluation could be obtained with PET versus MRI versus biopsy per ACR criteria, though I would not recommend a splenic biopsy for workup. Small suspected 4-6 mm nodules seen in the left thyroid lobe, though somewhat difficult to evaluate given artifact from patient's cardiac leads. Follow up based on recommendations detailed below, which based on the size, no follow-up ultrasound is felt necessary given patient's age unless the patient is at risk for thyroid cancer or has symptomatic thyroid disease. Diverticulosis without acute diverticulitis. RECOMMENDATIONS: Managing Incidental Thyroid Nodule Detected at CT or MRI or US 1. Further evaluation by thyroid Ultrasound recommended for these incidental nodules: Patient Age 18 years or less - Any nodule. Patient Age 19-34 years old - Nodule 1 cm in size or greater Patient Age 35 years or more - Nodule 1.5 cm in size or greater 2. Follow up thyroid ultrasound also recommend in these scenarios -Solitary nodule with high risk imaging features (locally invasive nodule or suspicious lymph nodes) -Any nodule in a heterogeneous enlarged thyroid gland 3. NO further imaging is recommended in the following scenarios -No f/u imaging is recommended for ITNs not meeting the above criteria. -No US or f/u recommended for ITNs without high risk features in pts. with limited life expectancy or significant co-morbidities, unless clinically warranted. Note: These recommendations do not apply to pts. w/ increased risk for thyroid cancer or pts. with symptomatic thyroid disease. Recommendations for f/u of Incidental Thyroid Nodules (ITN) found on CT, MR, NM and Extrathyroidal US are based upon the ACR white paper and Zimmer 3-tiered system for managing ITNs: J Am Dion Radiol. 2015 Dec;12(2): 143-50 D/ / Ld Larsen MD / Ld Larsen MD Interpreting Provider: Ld Larsen MD - EKG Data EKG attestation: Yes I reviewed and interpreted this EKG. EKG results narrative: EKG dated 15 October 2017 at 10:00 interpreted as sinus rhythm with rate of 91. Normal intervals AR 180, curative C2, QT/QTC 352/41. Left axis. Nonspecific ST-T changes. Compared to previous dated 07/19/2017 showing no acute ischemic changes or comparison. Heart Score - Score History: Moderately Suspicious EKG: Non Specific repolarisation Disturbance Age: Greater than 65 Risk Factors: Equal/Greater than 3 risk factor or history of atherosclerotic disease Troponin: Less than normal limit HEART Score Total: 6 Attestation Statement - Attestation Attestation: I examined this patient and my medical decision-making was reviewed with the Resident Physician. I agree with the documented findings, disposition and treatment plan as described except to the extent set forth below. Patient to ED with chest pain. She states she just does not feel right. She describes it as heaviness that is resolved. She had some radiation into her arm as well. Nurses were concerned about a droop of her face. Patient states she has not noticed any droop of her mouth and she does not know when I would have started. Denies numbness or tingling. She does have some numbness in the left leg that is chronic and was told that she had nerve damage there. Examination she is awake alert oriented. Hypertensive. Moving all extremities. No pronator drift. No ataxia. Does appear to have a mild drug of the left side of the mouth. It does correct when she smiles. Plan. Blood pressure is improved. She is not having chest heaviness at this time. It is concerning that she states she does not feel right. She has a strip in the mouth. NIH was performed and is only one. She would not be a TPA candidate. We will check a CTA to rule out dissection with her neuro symptoms. Will admit. Patient reporting contrast allergy. States it was decades ago and she does not remember what it was. We will pretreat and rule out for dissection. NIH Stroke Scale - Level of Consciousness LOC: Alert - LOC Questions LOC Questions: Answers both correctly - LOC Commands LOC Commands: Performs both correctly - Best Gaze Best Gaze: Normal - Visual Visual: No visual loss - Facial Palsy Facial Palsy: Minor asymmetry on smiling, flattened nasolabial fold - Motor Arms Motor Arm-Left: No drift for 10 seconds Motor Arm-Right: No drift for 10 seconds - Motor Legs Motor Leg-Left: No drift for 5 seconds Motor Leg-Right: No drift for 5 seconds - Limb Ataxia Limb Ataxia: Absent of affected limb too weak to perform exam - Sensory Sensory: Normal - Best Language Best Language: No aphasia - Dysarthria Dysarthria: Normal - Extinction and Inattention Extinction and Inattention: Normal - NIHSS Total Score NIHSS Total Score: 1
[2017-10-15 10:40] LABS: Basophils % 0.6 %; Eosinophils % 0.5 %; Hematocrit 41.5 % (35.3-44.9); Hemoglobin 14.4 g/dL (11.5-15.4); Immature Granulocytes % 0.5 % (0-4); Lymphocytes # 1.2 K/mcL (0.6-4.6); Lymphocytes % 17.9 %; Mean Corpuscular HGB Conc 34.7 g/dL (31.6-35.5); Mean Corpuscular Hemoglobin 29.8 pg (28.0-33.3); Mean Corpuscular Volume 85.9 fL (83.0-100.0); Mean Platelet Volume 8.9 fL (9.4-12.4); Monocytes # 0.6 K/mcL (0.0-1.3); Monocytes % 9.2 %; Neutrophils # 4.7 K/mcL (1.6-8.9); Platelet Count 243 K/mcL (140-400); Red Blood Count 4.83 M/mcL (3.82-4.97); Red Cell Distribution Width 12.6 % (11.5-14.5); Segmented Neutrophils % 71.3 %
[2017-10-15 10:45] LABS: Activated Partial Thrombo Time 28.7 Seconds (26.0-36.0)
[2017-10-15 10:50] LABS: BUN/Creatinine Ratio 14 (6-26); Blood Urea Nitrogen 10 mg/dL (7-20); Calcium 9.3 mg/dL (8.6-10.8); Carbon Dioxide 22 mEq/L (19-29); Chloride 94 mEq/L (98-109); Glucose 115 mg/dL (70-99); Osmolality,Calculated 266 (280-300); Potassium 3.8 mEq/L (3.5-4.5); Sodium 128 mEq/L (136-145); eGFR For African Americans > 60 (> 60); eGFR For Non-African Americans > 60 (> 60)
[2017-10-15] MEDS ORDERED: MethylPREDNISolone 40 MG/ML VIAL IVP ONE (11:18)
[2017-10-15] MEDS ORDERED: Naloxone 0.4 MG/ML INJ IVP PRN (17:20)
[2017-10-15] MEDS ORDERED: Ondansetron 4 MG/2 ML VIAL IVP PRN (17:20)
--- NOTE | 2017-10-15 17:52 | Internal Med History&Physical ---
Date of Encounter: 10/15/17 Time of Encounter: 17:00 Assessment and Plan (1) Chest pressure Current visit: Yes Status: Acute Acute chest pressure that pt. states began on Friday, is intermittent in nature, located in left chest w/o radiation, and denies previous occurrence. Initial troponin 0.00. Will trend x2. Echocardiogram ordered. Continuous cardiac telemetry. Nitroglycerin PRN. Add 81 mg aspirin therapy daily. Continue patient's Cozaar and hold metoprolol due to report of adverse reaction. Add Lipitor 20 mg at bedtime PO. Will consider cardiology consult based on echocardiogram results and trended troponins. Pt. is at high risk for cardiac event based on current sx, hx of CVA, and risk factors. Observation. (2) Hyponatremia Current visit: Yes Status: Acute Acute hyponatremia and hypochloremia with sodium of 128 and chloride of 94 on admission. Pt. placed on 100 mL/HR 0.9 NS. Will monitor sodium and chloride levels in f/u labs. (3) Hx of fall Current visit: Yes Status: Chronic Hx of falls. Falls/safety precautions. PT/OT consults to assess pt. for ambulation strength, stability, safety, and possible assistive needs for post- discharge planning. (4) History of CVA (cerebrovascular accident) Current visit: Yes Status: Chronic Hx of CVA in 2003 w/o residual deficits. Head CT today shows no acute intracranial abnormality, moderate chronic microvascular ischemic change, and scattered atherosclerosis. (5) Diabetes Current visit: Yes Status: Chronic Hx of diabetes that pt. states is controlled w/diet. BG checks ACHS. Low-dose correction sliding scale insulin w/hypoglycemic protocol. A1c in a.m. labs. Qualifiers: Diabetes mellitus type: type 2 Diabetes mellitus complication status: with unspecified complications Diabetes mellitus rat exterminator insulin use: unspecified rat exterminator insulin use status Qualified Code(s): E11.8 - Type 2 diabetes mellitus with unspecified complications (6) HLD (hyperlipidemia) Current visit: Yes Status: Chronic Hx of chronic HLD but pt. states she does not take statin currently and has no idea what her lipid status it. Lipitor 20 mg PO HS ordered. Lipid panel in a.m. labs. Qualifiers: Hyperlipidemia type: pure hypercholesterolemia Qualified Code(s): E78.00 - Pure hypercholesterolemia, unspecified; E78.0 - Pure hypercholesterolemia (7) HTN (hypertension) Current visit: Yes Status: Chronic Hx of chronic HTN. Will continue pts. cozaar and hold metoprolol d/t pts. report of adverse rxn. Pt. states that she was placed on metoprolol last and has been experiencing hypertension ever since. Patient also states she normally takes amlodipine but has not had her prescription filled for 5 weeks. Add hydralazine PO 10 mg Q6 PRN if SBP >180 and/or DBP >100. Monitor pt. and VS. Qualifiers: Hypertension type: essential hypertension Qualified Code(s): I10 - Essential (primary) hypertension (8) Thyroid disease Current visit: Yes Status: Chronic Hx of chronic thyroid disease. TSH ordered in a.m. labs. Continue pts. Synthroid. (9) DVT prophylaxis Current visit: Yes Status: Acute Heparin 5,000 units SQ Q12 for DVT prophylaxis. Monitor pt. for signs of bleeding. Internal Medicine - H&P: HPI Chief complaint: Chest pain Admitted From: Emergency Dept Plans for Post Hospital Care: Home History of present illness: Ms. Carranza is a 72 year old female with medical hx of previous CVA in 2003, thyroid disease, diabetes currently controlled with diet only, and HTN presents from the ED with chief complaint of chest pain that began on Friday and has been intermittent and she describes as pressure in her left chest that does not radiate and that comes and goes w/o exertion. Pt. denies previous occurrence or hx of cardiac issues/angioplasty/TX. Pt. does report that she is supposed to take amlodipine daily but has not been able to have her prescription filled for over 5 weeks. Patient states she was started on metoprolol last and has experienced hyper-tension ever since as well as feeling of dizziness. Patient mentions anxiety related to concern for stroke d/t hx in 2003. Patient denies recent illness, nausea, vomiting, fever, chills, abdominal pain, diarrhea , constipation, changes in vision, palpitations, headache, cough, unusual bleeding, presyncope, or syncope. Past Med Surg Social Fam HX - Past Medical History Source: patient, old records reviewed Medical history: CVA, diabetes, hypertension Psychiatric history: anxiety - Past Surgical History Surgical History: appendectomy, hysterectomy - Social History Smoking Status: Never smoker Smokeless Tobacco Status: No Alcohol use: none Drug use: none Current living situation: Home Activity Level: Uses cane/walker Recent Out of Country Travel Within the Last 8 Weeks: No Exposure or Possible Exposure to Illness During Travel: No - Family History Mother Race: Family Member Ethnicity: Non- Living Status: Age at : 62 Cause of : Unknown Hx Family Cardiac Disorders: Yes (HTN) Father Race: Family Member Ethnicity: Non- Living Status: Age at : 87 Cause of : [place] Hx Family Cardiac Disorders: Yes ([place]) Hx Family Endocrine Disorder: Yes (DM) Brother Race: Family Member Ethnicity: Non- Living Status: Age at : 78 Cause of : Cancer Hx Family Cardiac Disorders: Yes (HTN) Hx Family Cancer: Yes Hx Family Endocrine Disorder: Yes (DM) Sister Race: Family Member Ethnicity: Non- Living Status: Age at : 40 Cause of : Ovarian cancer Hx Family Cardiac Disorders: Yes (CAD, HTN) Hx Family Cancer: Yes (Ovarian) Hx Family Endocrine Disorder: Yes (DM) Internal Medicine - H&P: Meds Aspirin 81 mg PO DAILY 02/04/17 [History] Calcium Carbonate/Vitamin D3 [Calcium 600 + Vit D Tablet] 2 tab PO DAILY [History] Cyclosporine [Restasis] 1 drop BOTH EYES BID 02/04/17 [History] LORazepam [Ativan] 0.5 - 1 mg PO DAILY PRN 02/04/17 [History] Levothyroxine [Synthroid] 88 mcg PO DAILY 02/04/17 [History] Losartan Potassium [Cozaar] 50 mg PO BID 02/04/17 [History] valACYclovir [Valtrex] 500 mg PO BID 02/04/17 [History] Glucosamn/Condroitn/C/Mn/[place] [[facility] Glucosamine Chondroitin Tb] 1 tab PO DAILY 03/31/17 [History] Ciclopirox 1 appl TP BID 10/15/17 [History] Desonide [Tridesilon] 1 appl TP BID 10/15/17 [History] Metoprolol XL (24 HR) Succ [Toprol XL] 25 mg PO BID 10/15/17 [History] 3 Allergy/AdvReac Type Severity Reaction Status Date / Time fexofenadine Allergy See Verified 10/15/17 11:18 [From Angie-D 12 Hour] Comments meperidine [From Demerol] Allergy Hives Verified 10/15/17 11:18 Nickel Allergy Rash Verified 10/15/17 11:18 nitrofurantoin Allergy Hives Verified 10/15/17 11:18 pseudoephedrine Allergy See Verified 10/15/17 11:18 [From Angie-D 12 Hour] Comments acetaminophen [From Tylenol] AdvReac Dizziness Verified 10/15/17 11:18 ampicillin AdvReac Dizziness Verified 10/15/17 11:18 bupivacaine [From Marcaine] AdvReac Hypotension Verified 10/15/17 11:18 cephalexin AdvReac Nausea Verified 10/15/17 11:18 ciprofloxacin [From Cipro] AdvReac Nausea Verified 10/15/17 11:18 clarithromycin [From Biaxin] AdvReac Nausea Verified 10/15/17 11:18 codeine AdvReac Nausea Verified 10/15/17 11:18 Erythromycin Base AdvReac Nausea Verified 10/15/17 11:18 esomeprazole [From Nexium] AdvReac Nausea Verified 10/15/17 11:18 estrogens, conjugated AdvReac Gastrointestinal Verified 10/15/17 11:18 [From Premarin] Upset Iodinated Contrast- Oral and AdvReac Nausea Verified 10/15/17 11:18 IV Dye [Iodinated Contrast Media - Oral and] iodine AdvReac Nausea Verified 10/15/17 11:18 lidocaine AdvReac Hypotension Verified 10/15/17 11:18 lisinopril AdvReac Hypertensio Verified 10/15/17 11:18 n metformin AdvReac Dizziness Verified 10/15/17 11:18 moxifloxacin [From Avelox] AdvReac Nausea Verified 10/15/17 11:18 Oxycodone AdvReac Dizziness Verified 10/15/17 11:18 Paroxetine [From Paxil] AdvReac Nausea Verified 10/15/17 11:18 Penicillins AdvReac Dizziness Verified 10/15/17 11:18 Prilocaine AdvReac Hypotension Verified 10/15/17 11:18 prochlorperazine AdvReac Blurry Verified 10/15/17 11:18 [From Compazine] Vision Sulfa (Sulfonamide AdvReac Nausea Verified 10/15/17 11:18 Antibiotics) sulfamethoxazole AdvReac Nausea Verified 10/15/17 11:18 [From Bactrim] telmisartan [From Micardis] AdvReac Hypertensio Verified 10/15/17 11:18 n Tetracycline AdvReac Nausea Verified 10/15/17 11:18 trimethoprim [From Bactrim] AdvReac Nausea Verified 10/15/17 11:18 All Systems PM: A 10-system review of systems was performed and is negative for pertinent findings except as documented above in the HPI. - Constitutional Constitutional: as per HPI, falls, no chills, no fever(s), no night sweats - EENT Eyes: no change in vision, no discharge, no pain, no photophobia Ears: no ear discharge, no ear pain, no tinnitus Nose, mouth and throat: no dysphagia, no nasal discharge, no neck pain, no sore throat - Breasts Breasts: as per HPI - Cardiovascular Cardiovascular ROS IM: as per HPI, chest pain, no diaphoresis, no dyspnea, no lightheadedness, no palpitations, no syncope - Respiratory Respiratory: no cough, no dyspnea, no wheezing, no excessive phlegm production - Gastrointestinal Gastrointestinal: no abdominal pain, no diarrhea, no hematemesis, no hematochezia, no melena, no nausea, no vomiting - Genitourinary Genitourinary: no change in urinary stream, no dysuria, no flank pain, no hematuria Menstruation: as per HPI, post hysterectomy - Musculoskeletal Musculoskeletal ROS IM: no numbness, no tingling - Integumentary Integumentary IM: no rash, no unusual bruising - Neurological Neurological ROS: no confusion, no convulsions, no focal weakness, no numbness, no tingling, no tremor(s) - Psychiatric Psychiatric: as per HPI, anxiety - Endocrine Endocrine IM: as per HPI - Hematologic/Lymphatic Hematologic/Lymphatic: no easy bruising - Allergic/Immunologic Allergic/Immunologic: as per HPI - Constitutional Vitals: Temp Pulse Resp BP Pulse Ox 97.7 F 89 16 198/107 96 10/15/17 17:39 10/15/17 17:39 10/15/17 17:39 10/15/17 17:39 10/15/17 17:39 General appearance: Present: cooperative, A&O X 3, pleasant, no acute distress, answers questions appropriately - Head Head exam: Present: atraumatic, normal inspection, normocephalic - Eye Eye exam: Present: PERRL, conjuntiva pink, sclera anicteric Pupils: Present: PERRL - ENT ENT exam: Present: normal exam, normal external ear exam - Neck Neck exam general surgery: Present: normal inspection, supple, trachea midline. Absent: lymphadenopathy - Respiratory Respiratory exam: Present: CTAB. Absent: accessory muscle use, rales, rhonchi, wheezes - Cardiovascular Cardiovascular exam: Present: RRR, +S1, +S2. Absent: diastolic murmur, gallop, rubs, systolic murmur - GI/Abdominal GI/Abdominal exam: Present: normal bowel sounds, soft, no peritoneal signs. Absent: distended, tenderness - Rectal Rectal exam: Present: deferred - Additional comments: exam deferred. - Extremities Exam Extremities exam: Present: warm, radial pulses palpable and symmetrical. Absent : calf tenderness, cyanotic, pedal edema - Back Exam Back exam: Present: normal inspection - Neurological Exam Neurological exam: Present: CN II-XII intact, oriented X3, no focal deficits. Absent: pronater drift, facial droop, speech deficit - Psychiatric Psychiatric exam: Present: normal affect, normal mood - Skin Skin exam: Present: dry, intact Internal Med - H&P Results - Labs CBC & Chem 7: 10/15/17 10:26 10/15/17 10:26 - EKG Data EKG shows normal: sinus rhythm Rate: normal - EKG Data Prior EKG available for review: no Interpretation IM: normal EKG EKG comments: 10/15/17 18:18 EKG dated 10/15/17 shows sinus rhythm and normal ECG. - Diagnostic Studies Chest x-ray Additional comments: Impressions Chest X-Ray 10/15/17 10:01 IMPRESSION: 1. No convincing acute cardiopulmonary abnormality. 2. Mild elevation of the left hemidiaphragm. D/ / Best Landrum MD / Best Landrum MD Interpreting Provider: Best Landrum MD CT scan - head Additional comments: Impressions Head CT 10/15/17 10:02 IMPRESSION: 1. No acute intracranial abnormality. 2. Moderate chronic microvascular ischemic change. 3. Scattered atherosclerosis. D/ / Best Landrum MD / Best Landrum MD Interpreting Provider: Best Landrum MD Other Images Additional comments: Impressions Abdomen/Pelvis CTA 10/15/17 13:15 IMPRESSION: No thoracic or abdominal aortic aneurysm or dissection is identified. No pulmonary emboli are seen. There appears to be an endobronchial mass identified within the distal aspect of the right upper lobe bronchus, which then extends into multiple segmental bronchi from this central aspect. Differential considerations include malignancy, though a non malignant differential consideration is allergic bronchopulmonary aspergillosis. Recommend further evaluation with bronchoscopy and possible biopsy. No mediastinal lymphadenopathy or spiculated lung mass is identified. Benign-appearing liver cysts and small right renal cyst, as well as a partially calcified cystic lesion in the spleen which appears stable. Mild left-sided hydronephrosis and hydroureter, as well as a moderately distended bladder. Uncertain if this could be related to urinary outlet obstruction. No urinary tract calcification or obstructive mass. There is a small 7 mm hyperenhancing focal lesion seen within the spleen, with differential considerations including benign etiology such as a small hemangioma. A neoplastic process cannot be entirely excluded, and further evaluation could be obtained with PET versus MRI versus biopsy per ACR criteria, though I would not recommend a splenic biopsy for workup. Small suspected 4-6 mm nodules seen in the left thyroid lobe, though somewhat difficult to evaluate given artifact from patient's cardiac leads. Follow up based on recommendations detailed below, which based on the size, no follow-up ultrasound is felt necessary given patient's age unless the patient is at risk for thyroid cancer or has symptomatic thyroid disease. Diverticulosis without acute diverticulitis. RECOMMENDATIONS: Managing Incidental Thyroid Nodule Detected at CT or MRI or US 1. Further evaluation by thyroid Ultrasound recommended for these incidental nodules: Patient Age 18 years or less - Any nodule. Patient Age 19-34 years old - Nodule 1 cm in size or greater Patient Age 35 years or more - Nodule 1.5 cm in size or greater 2. Follow up thyroid ultrasound also recommend in these scenarios -Solitary nodule with high risk imaging features (locally invasive nodule or suspicious lymph nodes) -Any nodule in a heterogeneous enlarged thyroid gland 3. No further imaging is recommended in the following scenarios -No f/u imaging is recommended for ITNs not meeting the above criteria. -No US or f/u recommended for ITNs without high risk features in pts. with limited life expectancy or significant co-morbidities, unless clinically warranted. Note: These recommendations do not apply to pts. w/ increased risk for thyroid cancer or pts. with symptomatic thyroid disease. Recommendations for f/u of Incidental Thyroid Nodules (ITN) found on CT, MR, NM and Extrathyroidal US are based upon the ACR white paper and Zimmer 3-tiered system for managing ITNs: J Am Dion Radiol. 2015 Dec;12(2): 143-50 D/ / 10/15/2017 14:37:17 Ld Larsen MD / arden Interpreting Provider: Ld Larsen MD Chest CTA 10/15/17 13:15
[2017-10-15] MEDS ORDERED: *HR* Dextrose 50 % in Water (Syg) 50 ML SYRINGE IVP PRN (18:30)
[2017-10-15] MEDS ORDERED: Dextrose Gel 15 GM PO PRN ×2 (18:30)
[2017-10-15] MEDS ORDERED: D5% in Water 1,000 ML IVC PRN (18:30)
[2017-10-15] MEDS ORDERED: hydrALAZINE 10 MG TABLET PO PRN ×2 (18:31→18:51)
[2017-10-15] MEDS ORDERED: Nitroglycerin 0.4 MG TAB.SUBL SL PRN (18:40)
[2017-10-15] MEDS: Insulin LISPRO 300 UNITS/3 ML VIAL SQ SCH (20:11)
[2017-10-15] MEDS: *HR* Heparin 5,000 UNIT/ML VIAL SQ SCH (20:11)
[2017-10-15] MEDS: valACYclovir 500 MG TABLET PO SCH (20:14)
[2017-10-15] MEDS: (Cyclosporine [Restasis] 1 DROP) OP SCH (20:33)
[2017-10-15] MEDS: 0.9 % Sodium Chloride 1,000 ML IVC SCH (23:33)
[2017-10-15] MEDS: *HR* LORazepam 1 MG TABLET PO PRN (23:44)
[2017-10-16 01:31] LABS: Basophils % 0.2 %; Hematocrit 42.7 % (35.3-44.9); Hemoglobin 14.8 g/dL (11.5-15.4); Immature Granulocytes % 0.5 % (0-4); Lymphocytes # 0.7 K/mcL (0.6-4.6); Lymphocytes % 6.8 %; Mean Corpuscular HGB Conc 34.7 g/dL (31.6-35.5); Mean Corpuscular Hemoglobin 30.1 pg (28.0-33.3); Mean Corpuscular Volume 86.8 fL (83.0-100.0); Mean Platelet Volume 9.3 fL (9.4-12.4); Monocytes # 0.7 K/mcL (0.0-1.3); Monocytes % 7.2 %; Neutrophils # 8.5 K/mcL (1.6-8.9); Platelet Count 228 K/mcL (140-400); Red Blood Count 4.92 M/mcL (3.82-4.97); Red Cell Distribution Width 12.5 % (11.5-14.5); Segmented Neutrophils % 85.3 %
[2017-10-16 01:45] LABS: Hemoglobin A1C 6.1 %
[2017-10-16 01:50] LABS: Alanine Aminotransferase 12 Units/L (0-55); Albumin 3.8 g/dL (3.5-5.0); Albumin/Globulin Ratio 1.3 (1.1-2.2); Alkaline Phosphatase 57 Units/L (38-126); Aspartate Amino Transferase 13 Units/L (5-34); BUN/Creatinine Ratio 16 (6-26); Bilirubin,Total 0.7 mg/dL (0.2-1.2); Blood Urea Nitrogen 11 mg/dL (7-20); Calcium 8.8 mg/dL (8.6-10.8); Carbon Dioxide 20 mEq/L (19-29); Chloride 95 mEq/L (98-109); Chol/HDL Ratio 4.2 (0-4.9); Cholesterol 237 mg/dL (< 200); Glucose 175 mg/dL (70-99); HDL Cholesterol 56 mg/dL (40-59); LDL Cholesterol,Calculated 168 mg/dL (0-99); Magnesium 2.1 mg/dL (1.6-2.6); Osmolality,Calculated 270 (280-300); Potassium 3.4 mEq/L (3.5-4.5); Sodium 128 mEq/L (136-145); Total Protein 6.8 g/dL (6.0-8.3); Triglycerides 65 mg/dL (< 150); eGFR For African Americans > 60 (> 60); eGFR For Non-African Americans > 60 (> 60)
[2017-10-16] MEDS: *HR* Heparin 5,000 UNIT/ML VIAL SQ SCH ×2 (05:31→16:46)
[2017-10-16] MEDS: (Cyclosporine [Restasis] 1 DROP) OP SCH ×2 (08:38→20:00)
[2017-10-16] MEDS: Aspirin 81 MG TAB.CHEW PO SCH (08:38)
[2017-10-16] MEDS: valACYclovir 500 MG TABLET PO SCH ×2 (08:38→20:02)
[2017-10-16] MEDS: Insulin LISPRO 300 UNITS/3 ML VIAL SQ SCH ×4 (08:38→20:00)
--- NOTE | 2017-10-16 10:19 | Event Note ---
Date of Encounter: 10/15/17 Time of Encounter: 18:00 Discussed with CRISTOFER and agree with assessment and plan. ACS rule out for chest pain
--- NOTE | 2017-10-16 14:03 | Pulmonology Consult Note ---
Date of Encounter: 10/16/17 Time of Encounter: 14:03 Assessment and Plan (1) Endobronchial mass Current Visit: Yes Status: Acute In conclusion this is a 72-year-old woman who presents for evaluation of chest pressure. She was found to have an incidental endobronchial lesion in the right mainstem with extension into the right upper lobe takeoff. This is of unclear etiology I actually feel that endobronchial tumor is much less likely given her history. My inclination is to attribute this to an aspiration event possibly related to dental procedure in the past. Interestingly the lesion was noted back in the 06/11/[address] of the thorax but was not commented on at that time however it it may be slightly larger now. Clearly direct visualization via bronchoscopy is necessary to make diagnosis. When I explained this to the patient she requested that I speak to her son Al who I did on the phone and he is in agreement. She has other incidental findings along including reticular opacities in the bilateral lower lung harley I do not think that this is related to the endobronchial lesion it may be related to chronic changes in the lung related to prior environmental/industrial exposures. I do not think that this represents and infectious process. The other incidental nodules found in the spleen and thyroid along wit chronic cysts in the liver I do not feel are related Recs: Please keep nothing by mouth at midnight Check INR A bronchoscopy is recommended. The procedure , risks, benefits, complications, and expected outcomes have been reviewed. Benefits of diagnosis, as well as risks to include bleeding, infection, pneumothorax which may require surgical intervention, and in a small population. The patient is aware that sometimes test is nondiagnostic. Discussed with patient and agrees to proceed. History of Present Illness Consult date: 10/16/17 Requesting physician: Svetlana Vera Reason for consult: abnormal CXR/CT Chief complaint: Chest Pain History of present illness: This is a 72-year-old woman with past medical history of multiple medical allergies with recent Alonso flushing and diarrhea related to allergic response. She also had a history of recent colitis being followed with GI. She presented to the ED with chest pressure that started after a change in medication. This prompted an extensive radiological workup including CT of the chest abdomen and pelvis. Notably a obstructing lesion was found in the right mainstem bronchus with possible extension of the right upper lobe. Pulmonary was consulted for further evaluation of this. Patient is a lifelong nonsmoker denies any chronic pulmonary issues she has has a intermittent cough in the past and at least on one occasion this prompted a CT scan from her primary care physician back in June. She denies any choking on food although she says she was choked in the past and she has difficulty swallowing large pills but no other difficulty or dysphagia. 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 Notably she reports that she had a dental appointment back in the early part of this year which they had changed feeling and this was a prolonged procedure the way the patient described it and afterwards she was coughing up some particulate matter associated with that she says she maybe even coughed up a part of a filling Past Med Surg Social Fam HX - Past Medical History Medical history: CVA, diabetes, hypertension Psychiatric history: anxiety - Past Surgical History Surgical History: appendectomy, hysterectomy - Social History Smoking Status: Never smoker Smokeless Tobacco Status: No Alcohol use: none Drug use: none - Family History Mother Race: Family Member Ethnicity: Non- Living Status: Age at : 62 Cause of : Unknown Hx Family Cardiac Disorders: Yes (HTN) Hx Family Respiratory Disorders: No Hx Family Cancer: No Hx Family GI Disorders: No Hx Family Endocrine Disorder: No Hx Family Neuromuscular Disorders: No Hx Family Neurologic Disorders: No Hx Family HEENT Disorders: No Hx Family Autoimmune Disorders: No Father Race: Family Member Ethnicity: Non- Living Status: Age at : 87 Cause of : NH Hx Family Cardiac Disorders: Yes (NH) Hx Family Endocrine Disorder: Yes (DM) Brother Race: Family Member Ethnicity: Non- Living Status: Age at : 78 Cause of : Cancer Hx Family Cardiac Disorders: Yes (HTN) Hx Family Cancer: Yes Hx Family Endocrine Disorder: Yes (DM) Sister Race: Family Member Ethnicity: Non- Living Status: Age at : 40 Cause of : Ovarian cancer Hx Family Cardiac Disorders: Yes (CAD, HTN) Hx Family Cancer: Yes (Ovarian) Hx Family Endocrine Disorder: Yes (DM) Medications and Allergies Aspirin 81 mg PO DAILY 02/04/17 [History] Calcium Carbonate/Vitamin D3 [Calcium 600 + Vit D Tablet] 2 tab PO DAILY [History] Cyclosporine [Restasis] 1 drop BOTH EYES BID 02/04/17 [History] LORazepam [Ativan] 0.5 - 1 mg PO DAILY PRN 02/04/17 [History] Levothyroxine [Synthroid] 88 mcg PO DAILY 02/04/17 [History] Losartan Potassium [Cozaar] 50 mg PO BID 02/04/17 [History] valACYclovir [Valtrex] 500 mg PO BID 02/04/17 [History] Glucosamn/Condroitn/C/Mn/[place] [Cvs Glucosamine Chondroitin Tb] 1 tab PO DAILY 03/31/17 [History] Ciclopirox 1 appl TP BID 10/15/17 [History] Desonide [Tridesilon] 1 appl TP BID 10/15/17 [History] Metoprolol XL (24 HR) Succ [Toprol XL] 25 mg PO BID 10/15/17 [History] 3 Allergy/AdvReac Type Severity Reaction Status Date / Time fexofenadine Allergy See Verified 10/15/17 11:18 [From Angie-D 12 Hour] Comments meperidine [From Demerol] Allergy Hives Verified 10/15/17 11:18 Nickel Allergy Rash Verified 10/15/17 11:18 nitrofurantoin Allergy Hives Verified 10/15/17 11:18 pseudoephedrine Allergy See Verified 10/15/17 11:18 [From Angie-D 12 Hour] Comments acetaminophen [From Tylenol] AdvReac Dizziness Verified 10/15/17 11:18 ampicillin AdvReac Dizziness Verified 10/15/17 11:18 bupivacaine [From Marcaine] AdvReac Hypotension Verified 10/15/17 11:18 cephalexin AdvReac Nausea Verified 10/15/17 11:18 ciprofloxacin [From Cipro] AdvReac Nausea Verified 10/15/17 11:18 clarithromycin [From Biaxin] AdvReac Nausea Verified 10/15/17 11:18 codeine AdvReac Nausea Verified 10/15/17 11:18 Erythromycin Base AdvReac Nausea Verified 10/15/17 11:18 esomeprazole [From Nexium] AdvReac Nausea Verified 10/15/17 11:18 estrogens, conjugated AdvReac Gastrointestinal Verified 10/15/17 11:18 [From Premarin] Upset Iodinated Contrast- Oral and AdvReac Nausea Verified 10/15/17 11:18 IV Dye [Iodinated Contrast Media - Oral and] iodine AdvReac Nausea Verified 10/15/17 11:18 lidocaine AdvReac Hypotension Verified 10/15/17 11:18 lisinopril AdvReac Hypertensio Verified 10/15/17 11:18 n metformin AdvReac Dizziness Verified 10/15/17 11:18 moxifloxacin [From Avelox] AdvReac Nausea Verified 10/15/17 11:18 Oxycodone AdvReac Dizziness Verified 10/15/17 11:18 Paroxetine [From Paxil] AdvReac Nausea Verified 10/15/17 11:18 Penicillins AdvReac Dizziness Verified 10/15/17 11:18 Prilocaine AdvReac Hypotension Verified 10/15/17 11:18 prochlorperazine AdvReac Blurry Verified 10/15/17 11:18 [From Compazine] Vision Sulfa (Sulfonamide AdvReac Nausea Verified 10/15/17 11:18 Antibiotics) sulfamethoxazole AdvReac Nausea Verified 10/15/17 11:18 [From Bactrim] telmisartan [From Micardis] AdvReac Hypertensio Verified 10/15/17 11:18 n Tetracycline AdvReac Nausea Verified 10/15/17 11:18 trimethoprim [From Bactrim] AdvReac Nausea Verified 10/15/17 11:18 All Systems: A 10-system review of systems was performed and is negative for pertinent findings except as documented above in the HPI. Physical Examination Vital Signs: Vital Signs, Last 4 Hours Temp Pulse Resp BP Pulse Ox 10/16/17 11:39 98.3 F 75 16 167/81 98 General appearance: no acute distress Eyes: nonicteric ENT: oropharynx moist Neck: supple, no lymphadenopathy Effort: normal Auscultation: bilateral: clear Cardiovascular: regular rate and rhythm Gastrointestinal: normoactive bowel sounds Integumentary: normal Extremities: no cyanosis, no edema, no clubbing Musculoskeletal: no deformities normal mental status, non-focal exam mood appropriate Results - Laboratory Findings CBC and BMP: 10/16/17 01:03 10/16/17 01:03 PT/INR, D-dimer PT 11.0 Seconds (9.4-12.1) 10/15/17 10:26 Abnormal lab findings: Abnormal lab results MPV 9.3 fL (9.4-12.4) L 10/16/17 01:03 Sodium 128 mEq/L (136-145) L 10/16/17 01:03 Potassium 3.4 mEq/L (3.5-4.5) L 10/16/17 01:03 Chloride 95 mEq/L (98-109) L 10/16/17 01:03 Glucose 175 mg/dL (70-99) H 10/16/17 01:03 POC Glucose 246 (58-89) H 10/15/17 19:49 Hemoglobin A1c 6.1 % (-5.6) H 10/16/17 01:03 Calculated Osmolality 270 (280-300) L 10/16/17 01:03 Cholesterol 237 mg/dL (< 200) H 10/16/17 01:03 LDL Cholesterol, Calc 168 mg/dL (0-99) H 10/16/17 01:03 - Diagnostic Findings Chest x-ray: report reviewed, image reviewed CT scan - chest: report reviewed, image reviewed - Clinical Findings Intake & Output: Intake & Output 10/15/17 10/16/17 10/16/17 23:59 07:59 15:59 Intake Total 120 / 120 Balance 120 / 120 Weight 68.5 kg Consult Discharge Plan - Plan Referrals: Derek Maharaj Jr, MD [Primary Care Provider] -
[2017-10-16 15:13] LABS: Prothrombin Time 10.4 Seconds (9.4-12.1)
[2017-10-16 15:15] LABS: Activated Partial Thrombo Time 28.2 Seconds (26.0-36.0)
[2017-10-16] MEDS: 0.9 % Sodium Chloride 1,000 ML IVC SCH ×2 (16:46→16:48)
[2017-10-16] MEDS: *HR* LORazepam 1 MG TABLET PO PRN (16:50)
--- NOTE | 2017-10-16 17:06 | Internal Med Progress Note ---
Date of Encounter: 10/16/17 Time of Encounter: 09:55 - Assessment and plan (1) Chest pressure Current Visit: Yes Status: Acute Assessment and plan: During examination today patient denies that she ever had chest pressure. She reports that she was seen in the emergency department for a rash and diarrhea. She was started on a blood pressure medicine by her primary care provider gave her a rash. She reports to the admitting physician that she began having chest pressure on Friday, it was intermittent and was produced with exertion. It was located in the left chest there is no radiation. Echocardiogram reveals an LVEF of 65% with mild LV DD no significant valvular dysfunction and all wall segments showed normal motion. Chest x-ray is negative. Troponins are negative 3. Cholesterol is mildly elevated. Patient is already on Lipitor. Patient is mildly hypertensive. She is allergic to lisinopril, renal function is within normal limits, I will start her on a low-dose of hydrochlorothiazide. A1c is within normal limits at 6.1. Continue telemetry. Chest X-Ray 10/15/17 10:01 IMPRESSION: 1. No convincing acute cardiopulmonary abnormality. 2. Mild elevation of the left hemidiaphragm. D/ / Best Landrum MD / Best Landrum MD Interpreting Provider: Best Landrum MD Head CT 10/15/17 10:02 IMPRESSION: 1. No acute intracranial abnormality. 2. Moderate chronic microvascular ischemic change. 3. Scattered atherosclerosis. D/ / Best Landrum MD / Best Landrum MD Interpreting Provider: Best Landrum MD Abdomen/Pelvis CTA 10/15/17 13:15 IMPRESSION: No thoracic or abdominal aortic aneurysm or dissection is identified. No pulmonary emboli are seen. There appears to be an endobronchial mass identified within the distal aspect of the right upper lobe bronchus, which then extends into multiple segmental bronchi from this central aspect. Differential considerations include malignancy, though a non malignant differential consideration is allergic bronchopulmonary aspergillosis. Recommend further evaluation with bronchoscopy and possible biopsy. No mediastinal lymphadenopathy or spiculated lung mass is identified. Benign-appearing liver cysts and small right renal cyst, as well as a partially calcified cystic lesion in the spleen which appears stable. Mild left-sided hydronephrosis and hydroureter, as well as a moderately distended bladder. Uncertain if this could be related to urinary outlet obstruction. No urinary tract calcification or obstructive mass. There is a small 7 mm hyperenhancing focal lesion seen within the spleen, with differential considerations including benign etiology such as a small hemangioma. A neoplastic process cannot be entirely excluded, and further evaluation could be obtained with PET versus MRI versus biopsy per ACR criteria, though I would not recommend a splenic biopsy for workup. Small suspected 4-6 mm nodules seen in the left thyroid lobe, though somewhat difficult to evaluate given artifact from patient's cardiac leads. Follow up based on recommendations detailed below, which based on the size, no follow-up ultrasound is felt necessary given patient's age unless the patient is at risk for thyroid cancer or has symptomatic thyroid disease. Diverticulosis without acute diverticulitis. RECOMMENDATIONS: Managing Incidental Thyroid Nodule Detected at CT or MRI or US 1. Further evaluation by thyroid Ultrasound recommended for these incidental nodules: Patient Age 18 years or less - Any nodule. Patient Age 19-34 years old - Nodule 1 cm in size or greater Patient Age 35 years or more - Nodule 1.5 cm in size or greater 2. Follow up thyroid ultrasound also recommend in these scenarios -Solitary nodule with high risk imaging features (locally invasive nodule or suspicious lymph nodes) -Any nodule in a heterogeneous enlarged thyroid gland 3. No further imaging is recommended in the following scenarios -No f/u imaging is recommended for ITNs not meeting the above criteria. -No US or f/u recommended for ITNs without high risk features in pts. with limited life expectancy or significant co-morbidities, unless clinically warranted. Note: These recommendations do not apply to pts. w/ increased risk for thyroid cancer or pts. with symptomatic thyroid disease. Recommendations for f/u of Incidental Thyroid Nodules (ITN) found on CT, MR, NM and Extrathyroidal US are based upon the ACR white paper and Zimmer 3-tiered system for managing ITNs: J Am Dion Radiol. 2015 Dec;12(2): 143-50 D/ / 10/15/2017 14:37:17 Ld Larsen MD / arden Interpreting Provider: Ld Larsen MD Chest CTA 10/15/17 13:15 IMPRESSION: No thoracic or abdominal aortic aneurysm or dissection is identified. No pulmonary emboli are seen. There appears to be an endobronchial mass identified within the distal aspect of the right upper lobe bronchus, which then extends into multiple segmental bronchi from this central aspect. Differential considerations include malignancy, though a non malignant differential consideration is allergic bronchopulmonary aspergillosis. Recommend further evaluation with bronchoscopy and possible biopsy. No mediastinal lymphadenopathy or spiculated lung mass is identified. Benign-appearing liver cysts and small right renal cyst, as well as a partially calcified cystic lesion in the spleen which appears stable. Mild left-sided hydronephrosis and hydroureter, as well as a moderately distended bladder. Uncertain if this could be related to urinary outlet obstruction. No urinary tract calcification or obstructive mass. There is a small 7 mm hyperenhancing focal lesion seen within the spleen, with differential considerations including benign etiology such as a small hemangioma. A neoplastic process cannot be entirely excluded, and further evaluation could be obtained with PET versus MRI versus biopsy per ACR criteria, though I would not recommend a splenic biopsy for workup. Small suspected 4-6 mm nodules seen in the left thyroid lobe, though somewhat difficult to evaluate given artifact from patient's cardiac leads. Follow up based on recommendations detailed below, which based on the size, no follow-up ultrasound is felt necessary given patient's age unless the patient is at risk for thyroid cancer or has symptomatic thyroid disease. Diverticulosis without acute diverticulitis. RECOMMENDATIONS: Managing Incidental Thyroid Nodule Detected at CT or MRI or US 1. Further evaluation by thyroid Ultrasound recommended for these incidental nodules: Patient Age 18 years or less - Any nodule. Patient Age 19-34 years old - Nodule 1 cm in size or greater Patient Age 35 years or more - Nodule 1.5 cm in size or greater 2. Follow up thyroid ultrasound also recommend in these scenarios -Solitary nodule with high risk imaging features (locally invasive nodule or suspicious lymph nodes) -Any nodule in a heterogeneous enlarged thyroid gland 3. No further imaging is recommended in the following scenarios -No f/u imaging is recommended for ITNs not meeting the above criteria. -No US or f/u recommended for ITNs without high risk features in pts. with limited life expectancy or significant co-morbidities, unless clinically warranted. Note: These recommendations do not apply to pts. w/ increased risk for thyroid cancer or pts. with symptomatic thyroid disease. Recommendations for f/u of Incidental Thyroid Nodules (ITN) found on CT, MR, NM and Extrathyroidal US are based upon the ACR white paper and Zimmer 3-tiered system for managing ITNs: J Am Dion Radiol. 2015 Dec;12(2): 143-50 D/ / 10/15/2017 14:37:17 Ld Larsen MD / arden Interpreting Provider: Ld Larsen MD Thyroid Ultrasound 10/16/17 15:30 IMPRESSION: Atrophic thyroid with heterogeneous parenchyma, suggesting chronic thyroiditis. No definite discrete nodules are identified. D/ / Darvin Amaro MD / Darvin Amaro MD Interpreting Provider: Darvin Amaro MD Echocardiogram 10/16/17 17:41 Impressions: LVEF 65%. Mild concentric left ventricular hypertrophy. Mild left ventricular diastolic dysfunction. Normal right ventricular structure and function. No significant valvular dysfunction. No evidence of pulmonary hypertension. Left Ventricular Wall Motion: Rest Echo Findings All wall segments showed normal motion. Findings: Study Quality * Technically adequate exam. ECG Findings * Normal sinus rhythm. Left Ventricle * LVEF 65%. * Normal left ventricular size. * Mild concentric left ventricular hypertrophy. * Mild left ventricular diastolic dysfunction. Right Ventricle * Normal right ventricular structure and function. Left Atrium * Normal left atrial size. Right Atrium * Normal right atrial size. Interatrial Septum * No evidence of PFO by color Doppler. Aortic Valve * Trileaflet aortic valve with normal function. * No aortic regurgitation. * No aortic stenosis. Mitral Valve * Normal mitral valve structure and function. * No mitral regurgitation. * No mitral stenosis. Tricuspid Valve * Normal tricuspid valve structure and function. * Trace tricuspid regurgitation. * No evidence of pulmonary hypertension. Pulmonic Valve * Normal pulmonic valve structure and function. * Trace pulmonic regurgitation. Aorta * Normally sized aortic root. Pericardium * The pericardium appears normal. IVC * Normal IVC dimensions and inspiratory collapse. Pulmonary Artery * Normal visualized portions of the main pulmonary artery. (2) HTN (hypertension) Current Visit: Yes Status: Chronic Assessment and plan: Patient is mildly hypertensive. I have added hydrochlorothiazide 12.5 mg by mouth daily. Continue to monitor vital signs. Qualifiers: Hypertension type: essential hypertension Qualified Code(s): I10 - Essential (primary) hypertension (3) Diabetes Current Visit: Yes Status: Chronic Assessment and plan: A1c is 6.1%. Continue sliding scale insulin, Accu-Cheks before meals at bedtime , diabetic diet. Qualifiers: Diabetes mellitus type: type 2 Diabetes mellitus complication status: with unspecified complications Diabetes mellitus terminal manager insulin use: unspecified skilled nursing insulin use status Qualified Code(s): E11.8 - Type 2 diabetes mellitus with unspecified complications (4) Hyperlipemia Current Visit: Yes Status: Chronic Assessment and plan: Chronic. Cholesterol is mildly elevated to 37. Patient is already on Lipitor. Will recommend lifestyle changes. Qualifiers: Hyperlipidemia type: mixed hyperlipidemia Qualified Code(s): E78.2 - Mixed hyperlipidemia (5) Hx of fall Current Visit: Yes Status: Chronic Assessment and plan: Physical therapy and occupational therapy on board for evaluations. Patient denies falls today, initial report was that she had fallen twice at home. Fall precautions PTOT Bed alarm (6) Thyroid disease Current Visit: Yes Status: Chronic Assessment and plan: Patient with chronic thyroid disease. TSH is within normal limits. Per CT, there were small 4-6 millimeter nodule seen in the left thyroid lobe. Patient had thyroid ultrasound that showed atrophic thyroid with heterogenous parenchyma , suggesting chronic thyroiditis. No definite discrete nodules were identified. (7) Endobronchial mass Current Visit: Yes Status: Acute Assessment and plan: Per CT. There appears to be an endobronchial mass identified within the distal aspect of the right upper lobe bronchus, extends into multiple segmental bronchi from the central aspect. Pulmonology has been consulted for bronchoscopy. Patient will be nothing by mouth after midnight. Procedure in the morning. Pulmonology consulted. I appreciate the recommendation consultations. (8) DVT prophylaxis Current Visit: Yes Status: Acute Assessment and plan: Heparin subcutaneous daily. (9) Hydronephrosis Current Visit: Yes Status: Acute Assessment and plan: Per CT abd/pelvis with contrast. Retroperitoneal US ordered, straight cath ordered. Will consult nephrology in the a.m. based on US results and labs. Qualifiers: Hydronephrosis type: unspecified Qualified Code(s): N13.30 - Unspecified hydronephrosis - Time Spent With Patient less than 15 minutes - Constitutional Vitals: Temp Pulse Resp BP Pulse Ox 98.3 F 75 16 167/81 98 10/16/17 11:39 10/16/17 11:39 10/16/17 11:39 10/16/17 11:39 10/16/17 11:39 General appearance: Present: cooperative, A&O X 3, pleasant, no acute distress, answers questions appropriately - Head Head exam: Present: atraumatic, normal inspection, normocephalic - Eye Eye exam: Present: normal appearance, conjuntiva pink, sclera anicteric - Neck Neck exam general surgery: Present: normal inspection, supple, trachea midline. Absent: lymphadenopathy, tenderness - Respiratory Respiratory exam: Present: CTAB. Absent: accessory muscle use, rales, rhonchi, wheezes - Cardiovascular Cardiovascular exam: Present: RRR, +S1, +S2. Absent: diastolic murmur, gallop, rubs, systolic murmur - GI/Abdominal GI/Abdominal exam: Present: normal bowel sounds, soft, no peritoneal signs. Absent: distended, hepatomegaly, tenderness - Extremities Exam Extremities exam: Present: warm, radial pulses palpable and symmetrical. Absent : calf tenderness, cyanotic, pedal edema, tenderness - Neurological Exam Neurological exam: Present: alert, oriented X3, no focal deficits. Absent: facial droop, speech deficit - Skin Skin exam: Present: dry, intact, normal color, warm. Absent: rash Internal Medicine: Result - Labs CBC & Chem 7: 10/16/17 01:03 10/16/17 01:03 Labs: Short CBC 10/16/17 Range/Units 01:03 WBC 9.9 (4.3-11.1) K/mcL Hgb 14.8 (11.5-15.4) g/dL Hct 42.7 (35.3-44.9) % Plt Count 228 (140-400) K/mcL Neutrophils # 8.5 (1.6-8.9) K/mcL BMP 10/16/17 01:03 Sodium 128 L Potassium 3.4 L Chloride 95 L Carbon Dioxide 20 BUN 11 Creatinine 0.70 Glucose 175 H Calcium 8.8 Cardiac Enzymes 10/15/17 10/16/17 Range/Units 18:42 01:03 Troponin I 0.01 0.01 (0-0.03) ng/mL Liver Function 10/16/17 Range/Units 01:03 Total Bilirubin 0.7 (0.2-1.2) mg/dL AST 13 (5-34) Units/L ALT 12 (0-55) Units/L Alkaline Phosphatase 57 (38-126) Units/L Albumin 3.8 (3.5-5.0) g/dL - ABG Interpretation ABG results: PT/INR, D-dimer PT 10.4 Seconds (9.4-12.1) 10/16/17 14:57 - Impressions Impressions Thyroid Ultrasound 10/16/17 15:30 IMPRESSION: Atrophic thyroid with heterogeneous parenchyma, suggesting chronic thyroiditis. No definite discrete nodules are identified. D/ / Darvin Amaro MD / Darvin Amaro MD Interpreting Provider: Darvin Amaro MD Echocardiogram 10/16/17 17:41 Impressions: LVEF 65%. Mild concentric left ventricular hypertrophy. Mild left ventricular diastolic dysfunction. Normal right ventricular structure and function. No significant valvular dysfunction. No evidence of pulmonary hypertension. Left Ventricular Wall Motion: Rest Echo Findings All wall segments showed normal motion. Findings: Study Quality * Technically adequate exam. ECG Findings * Normal sinus rhythm. Left Ventricle * LVEF 65%. * Normal left ventricular size. * Mild concentric left ventricular hypertrophy. * Mild left ventricular diastolic dysfunction. Right Ventricle * Normal right ventricular structure and function. Left Atrium * Normal left atrial size. Right Atrium * Normal right atrial size. Interatrial Septum * No evidence of PFO by color Doppler. Aortic Valve * Trileaflet aortic valve with normal function. * No aortic regurgitation. * No aortic stenosis. Mitral Valve * Normal mitral valve structure and function. * No mitral regurgitation. * No mitral stenosis. Tricuspid Valve * Normal tricuspid valve structure and function. * Trace tricuspid regurgitation. * No evidence of pulmonary hypertension. Pulmonic Valve * Normal pulmonic valve structure and function. * Trace pulmonic regurgitation. Aorta * Normally sized aortic root. Pericardium * The pericardium appears normal. IVC * Normal IVC dimensions and inspiratory collapse. Pulmonary Artery * Normal visualized portions of the main pulmonary artery. Consult Discharge Plan - Plan Referrals: Derek Maharaj Jr, MD [Primary Care Provider] -
[2017-10-16] MEDS: hydroCHLOROthiazide 25 MG TABLET PO SCH (17:34)
--- NOTE | 2017-10-16 18:31 | Electrocardiograph Report ---
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
[2017-10-17] MEDS: 0.9 % Sodium Chloride 1,000 ML IVC SCH ×2 (04:38→18:30)
[2017-10-17] MEDS: *HR* Heparin 5,000 UNIT/ML VIAL SQ SCH ×2 (05:42→17:04)
[2017-10-17 07:15] LABS: Basophils # 0.1 K/mcL (0.0-0.2); Basophils % 0.6 %; Eosinophils % 0.3 %; Hematocrit 39.9 % (35.3-44.9); Hemoglobin 13.6 g/dL (11.5-15.4); Immature Granulocytes % 0.4 % (0-4); Lymphocytes % 21.7 %; Mean Corpuscular HGB Conc 34.1 g/dL (31.6-35.5); Mean Corpuscular Volume 88.1 fL (83.0-100.0); Mean Platelet Volume 9.7 fL (9.4-12.4); Monocytes % 10.8 %; Neutrophils # 6.2 K/mcL (1.6-8.9); Platelet Count 211 K/mcL (140-400); Red Blood Count 4.53 M/mcL (3.82-4.97); Segmented Neutrophils % 66.2 %
[2017-10-17 07:29] LABS: Alanine Aminotransferase 9 Units/L (0-55); Albumin 3.3 g/dL (3.5-5.0); Albumin/Globulin Ratio 1.3 (1.1-2.2); Alkaline Phosphatase 50 Units/L (38-126); Aspartate Amino Transferase 13 Units/L (5-34); BUN/Creatinine Ratio 22 (6-26); Bilirubin,Total 0.9 mg/dL (0.2-1.2); Blood Urea Nitrogen 14 mg/dL (7-20); Calcium 8.5 mg/dL (8.6-10.8); Carbon Dioxide 22 mEq/L (19-29); Chloride 104 mEq/L (98-109); Globulin 2.6 g/dL (2.4-3.5); Glucose 114 mg/dL (70-99); Osmolality,Calculated 283 (280-300); Potassium 3.4 mEq/L (3.5-4.5); Total Protein 5.9 g/dL (6.0-8.3); eGFR For African Americans > 60 (> 60); eGFR For Non-African Americans > 60 (> 60)
[2017-10-17 07:30] LABS: Sodium 136 mEq/L (136-145)
[2017-10-17] MEDS: Insulin LISPRO 300 UNITS/3 ML VIAL SQ SCH ×4 (08:05→23:27)
[2017-10-17] MEDS: hydroCHLOROthiazide 25 MG TABLET PO SCH (08:05)
[2017-10-17] MEDS: Aspirin 81 MG TAB.CHEW PO SCH (08:06)
[2017-10-17] MEDS: (Cyclosporine [Restasis] 1 DROP) OP SCH ×2 (08:06→22:59)
[2017-10-17] MEDS: valACYclovir 500 MG TABLET PO SCH ×2 (08:06→22:59)
[2017-10-17] MEDS: *HR* LORazepam 1 MG TABLET PO PRN (08:10)
[2017-10-17 08:45] LABS: Bilirubin,Urine Negative (Negative); Blood,Urine Small (Negative); Clarity,Urine Cloudy (Clear); Color,Urine Yellow (Yellow); Glucose,Urine (UA) Normal (Normal); Ketones,Urine Negative (Negative); Leukocyte Esterase,Urine Large (Negative); Nitrite,Urine Negative (Negative); Protein,Urine Negative (Neg-Trace); Specific Gravity,Urine 1.013 (1.010-1.025); Urobilinogen,Urine Normal (Normal)
[2017-10-17 08:48] LABS: Bacteria,Urine None Seen per hpf (None-Few); Hyaline Casts,Urine None Seen per lpf (None-Few); Squamous Epithelial Cell,Urine None Seen per lpf (None-Few); WBC,Urine TNTC per hpf (0-3)
--- NOTE | 2017-10-17 09:02 | Anesthesia Evaluation PreOp ---
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: CVA (2003 - maintained on ASA), Other (Anxiety/Depression maintained on Lorazepam, Paxil) Other Medical History: Diabetes Type II (currently "diet controlled"), Thyroid ( maintained on Synthroid), Other (Chronic Dry eye maintained on Restatsis) Anesthesia History: No Prior Anesthetic Complications, Past Anesthesia Alcohol Use: none Drug use: none Medications and Allergies Aspirin 81 mg PO DAILY 02/04/17 [History] Calcium Carbonate/Vitamin D3 [Calcium 600 + Vit D Tablet] 2 tab PO DAILY [History] Cyclosporine [Restasis] 1 drop BOTH EYES BID 02/04/17 [History] LORazepam [Ativan] 0.5 - 1 mg PO DAILY PRN 02/04/17 [History] Levothyroxine [Synthroid] 88 mcg PO DAILY 02/04/17 [History] Losartan Potassium [Cozaar] 50 mg PO BID 02/04/17 [History] valACYclovir [Valtrex] 500 mg PO BID 02/04/17 [History] Glucosamn/Condroitn/C/Mn/[place] [[facility] Glucosamine Chondroitin Tb] 1 tab PO DAILY 03/31/17 [History] Ciclopirox 1 appl TP BID 10/15/17 [History] Desonide [Tridesilon] 1 appl TP BID 10/15/17 [History] Metoprolol XL (24 HR) Succ [Toprol XL] 25 mg PO BID 10/15/17 [History] 3 Allergy/AdvReac Type Severity Reaction Status Date / Time fexofenadine Allergy See Verified 10/15/17 11:18 [From Angie-D 12 Hour] Comments meperidine [From Demerol] Allergy Hives Verified 10/15/17 11:18 Nickel Allergy Rash Verified 10/15/17 11:18 nitrofurantoin Allergy Hives Verified 10/15/17 11:18 pseudoephedrine Allergy See Verified 10/15/17 11:18 [From Angie-D 12 Hour] Comments acetaminophen [From Tylenol] AdvReac Dizziness Verified 10/15/17 11:18 ampicillin AdvReac Dizziness Verified 10/15/17 11:18 bupivacaine [From Marcaine] AdvReac Hypotension Verified 10/15/17 11:18 cephalexin AdvReac Nausea Verified 10/15/17 11:18 ciprofloxacin [From Cipro] AdvReac Nausea Verified 10/15/17 11:18 clarithromycin [From Biaxin] AdvReac Nausea Verified 10/15/17 11:18 codeine AdvReac Nausea Verified 10/15/17 11:18 Erythromycin Base AdvReac Nausea Verified 10/15/17 11:18 esomeprazole [From Nexium] AdvReac Nausea Verified 10/15/17 11:18 estrogens, conjugated AdvReac Gastrointestinal Verified 10/15/17 11:18 [From Premarin] Upset Iodinated Contrast- Oral and AdvReac Nausea Verified 10/15/17 11:18 IV Dye [Iodinated Contrast Media - Oral and] iodine AdvReac Nausea Verified 10/15/17 11:18 lidocaine AdvReac Hypotension Verified 10/15/17 11:18 lisinopril AdvReac Hypertensio Verified 10/15/17 11:18 n metformin AdvReac Dizziness Verified 10/15/17 11:18 moxifloxacin [From Avelox] AdvReac Nausea Verified 10/15/17 11:18 Oxycodone AdvReac Dizziness Verified 10/15/17 11:18 Paroxetine [From Paxil] AdvReac Nausea Verified 10/15/17 11:18 Penicillins AdvReac Dizziness Verified 10/15/17 11:18 Prilocaine AdvReac Hypotension Verified 10/15/17 11:18 prochlorperazine AdvReac Blurry Verified 10/15/17 11:18 [From Compazine] Vision Sulfa (Sulfonamide AdvReac Nausea Verified 10/15/17 11:18 Antibiotics) sulfamethoxazole AdvReac Nausea Verified 10/15/17 11:18 [From Bactrim] telmisartan [From Micardis] AdvReac Hypertensio Verified 10/15/17 11:18 n Tetracycline AdvReac Nausea Verified 10/15/17 11:18 trimethoprim [From Bactrim] AdvReac Nausea Verified 10/15/17 11:18 - Meds/Allergy Pre-op Review Medications Reviewed: Yes Allergies Reviewed: Yes Beta Blockers on Current Med List: No Anesthesia Results - Labs 10/17/17 05:40 10/17/17 05:40 Laboratory Results Impressions Chest X-Ray 10/15/17 10:01 IMPRESSION: 1. No convincing acute cardiopulmonary abnormality. 2. Mild elevation of the left hemidiaphragm. D/ / Best Landrum MD / Best Landrum MD Interpreting Provider: Best Landrum MD Head CT 10/15/17 10:02 IMPRESSION: 1. No acute intracranial abnormality. 2. Moderate chronic microvascular ischemic change. 3. Scattered atherosclerosis. D/ / Best Landrum MD / Best Landrum MD Interpreting Provider: Best Landrum MD Abdomen/Pelvis CTA 10/15/17 13:15 IMPRESSION: No thoracic or abdominal aortic aneurysm or dissection is identified. No pulmonary emboli are seen. There appears to be an endobronchial mass identified within the distal aspect of the right upper lobe bronchus, which then extends into multiple segmental bronchi from this central aspect. Differential considerations include malignancy, though a non malignant differential consideration is allergic bronchopulmonary aspergillosis. Recommend further evaluation with bronchoscopy and possible biopsy. No mediastinal lymphadenopathy or spiculated lung mass is identified. Benign-appearing liver cysts and small right renal cyst, as well as a partially calcified cystic lesion in the spleen which appears stable. Mild left-sided hydronephrosis and hydroureter, as well as a moderately distended bladder. Uncertain if this could be related to urinary outlet obstruction. No urinary tract calcification or obstructive mass. There is a small 7 mm hyperenhancing focal lesion seen within the spleen, with differential considerations including benign etiology such as a small hemangioma. A neoplastic process cannot be entirely excluded, and further evaluation could be obtained with PET versus MRI versus biopsy per ACR criteria, though I would not recommend a splenic biopsy for workup. Small suspected 4-6 mm nodules seen in the left thyroid lobe, though somewhat difficult to evaluate given artifact from patient's cardiac leads. Follow up based on recommendations detailed below, which based on the size, no follow-up ultrasound is felt necessary given patient's age unless the patient is at risk for thyroid cancer or has symptomatic thyroid disease. Diverticulosis without acute diverticulitis. RECOMMENDATIONS: Managing Incidental Thyroid Nodule Detected at CT or MRI or US 1. Further evaluation by thyroid Ultrasound recommended for these incidental nodules: Patient Age 18 years or less - Any nodule. Patient Age 19-34 years old - Nodule 1 cm in size or greater Patient Age 35 years or more - Nodule 1.5 cm in size or greater 2. Follow up thyroid ultrasound also recommend in these scenarios -Solitary nodule with high risk imaging features (locally invasive nodule or suspicious lymph nodes) -Any nodule in a heterogeneous enlarged thyroid gland 3. No further imaging is recommended in the following scenarios -No f/u imaging is recommended for ITNs not meeting the above criteria. -No US or f/u recommended for ITNs without high risk features in pts. with limited life expectancy or significant co-morbidities, unless clinically warranted. Note: These recommendations do not apply to pts. w/ increased risk for thyroid cancer or pts. with symptomatic thyroid disease. Recommendations for f/u of Incidental Thyroid Nodules (ITN) found on CT, MR, NM and Extrathyroidal US are based upon the ACR white paper and Zimmer 3-tiered system for managing ITNs: J Am Dion Radiol. 2014;12(2): 143-50 D/ / 10/15/2017 14:37:17 Ld Larsen MD / arden Interpreting Provider: Ld Larsen MD Chest CTA 10/15/17 13:15 IMPRESSION: No thoracic or abdominal aortic aneurysm or dissection is identified. No pulmonary emboli are seen. There appears to be an endobronchial mass identified within the distal aspect of the right upper lobe bronchus, which then extends into multiple segmental bronchi from this central aspect. Differential considerations include malignancy, though a non malignant differential consideration is allergic bronchopulmonary aspergillosis. Recommend further evaluation with bronchoscopy and possible biopsy. No mediastinal lymphadenopathy or spiculated lung mass is identified. Benign-appearing liver cysts and small right renal cyst, as well as a partially calcified cystic lesion in the spleen which appears stable. Mild left-sided hydronephrosis and hydroureter, as well as a moderately distended bladder. Uncertain if this could be related to urinary outlet obstruction. No urinary tract calcification or obstructive mass. There is a small 7 mm hyperenhancing focal lesion seen within the spleen, with differential considerations including benign etiology such as a small hemangioma. A neoplastic process cannot be entirely excluded, and further evaluation could be obtained with PET versus MRI versus biopsy per ACR criteria, though I would not recommend a splenic biopsy for workup. Small suspected 4-6 mm nodules seen in the left thyroid lobe, though somewhat difficult to evaluate given artifact from patient's cardiac leads. Follow up based on recommendations detailed below, which based on the size, no follow-up ultrasound is felt necessary given patient's age unless the patient is at risk for thyroid cancer or has symptomatic thyroid disease. Diverticulosis without acute diverticulitis. RECOMMENDATIONS: Managing Incidental Thyroid Nodule Detected at CT or MRI or US 1. Further evaluation by thyroid Ultrasound recommended for these incidental nodules: Patient Age 18 years or less - Any nodule. Patient Age 19-34 years old - Nodule 1 cm in size or greater Patient Age 35 years or more - Nodule 1.5 cm in size or greater 2. Follow up thyroid ultrasound also recommend in these scenarios -Solitary nodule with high risk imaging features (locally invasive nodule or suspicious lymph nodes) -Any nodule in a heterogeneous enlarged thyroid gland 3. No further imaging is recommended in the following scenarios -No f/u imaging is recommended for ITNs not meeting the above criteria. -No US or f/u recommended for ITNs without high risk features in pts. with limited life expectancy or significant co-morbidities, unless clinically warranted. Note: These recommendations do not apply to pts. w/ increased risk for thyroid cancer or pts. with symptomatic thyroid disease. Recommendations for f/u of Incidental Thyroid Nodules (ITN) found on CT, MR, NM and Extrathyroidal US are based upon the ACR white paper and Zimmer 3-tiered system for managing ITNs: J Am Dion Radiol. 2015 Dec;12(2): 143-50 D/ / 10/15/2017 14:37:17 Ld Larsen MD / arden Interpreting Provider: Ld Larsen MD Thyroid Ultrasound 10/16/17 15:30 IMPRESSION: Atrophic thyroid with heterogeneous parenchyma, suggesting chronic thyroiditis. No definite discrete nodules are identified. D/ / Darvin Amaro MD / Darvin Amaro MD Interpreting Provider: Darvin Amaro MD Echocardiogram 10/16/17 17:41 Impressions: LVEF 65%. Mild concentric left ventricular hypertrophy. Mild left ventricular diastolic dysfunction. Normal right ventricular structure and function. No significant valvular dysfunction. No evidence of pulmonary hypertension. Left Ventricular Wall Motion: Rest Echo Findings All wall segments showed normal motion. Findings: Study Quality * Technically adequate exam. ECG Findings * Normal sinus rhythm. Left Ventricle * LVEF 65%. * Normal left ventricular size. * Mild concentric left ventricular hypertrophy. * Mild left ventricular diastolic dysfunction. Right Ventricle * Normal right ventricular structure and function. Left Atrium * Normal left atrial size. Right Atrium * Normal right atrial size. Interatrial Septum * No evidence of PFO by color Doppler. Aortic Valve * Trileaflet aortic valve with normal function. * No aortic regurgitation. * No aortic stenosis. Mitral Valve * Normal mitral valve structure and function. * No mitral regurgitation. * No mitral stenosis. Tricuspid Valve * Normal tricuspid valve structure and function. * Trace tricuspid regurgitation. * No evidence of pulmonary hypertension. Pulmonic Valve * Normal pulmonic valve structure and function. * Trace pulmonic regurgitation. Aorta * Normally sized aortic root. Pericardium * The pericardium appears normal. IVC * Normal IVC dimensions and inspiratory collapse. Pulmonary Artery * Normal visualized portions of the main pulmonary artery. Retroperitoneum Ultrasound 10/16/17 19:00 IMPRESSION: No right hydronephrosis. No definite left hydronephrosis although the left kidney is slightly suboptimally visualized. Urinary bladder is questionably thick-walled, possibly due to slight underdistention, however may indicate underlying cystitis. Correlate with urinalysis. The right ureteral jet is seen. No left ureteral jet identified. If there is ongoing concern for obstructive uropathy, recommend evaluation with CT. D/ / Pako Swift / Pako Swift Interpreting Provider: Pako Swift - Imaging EKG: image reviewed Anesthesia Exam Vital Signs Temp Pulse Resp BP Pulse Ox 10/17/17 07:21 97.8 F 79 17 165/80 98 10/17/17 03:12 97.8 F 100 16 196/72 93 10/16/17 23:05 97.6 F 91 91 185/74 97 10/16/17 18:26 97.6 F 87 16 173/82 98 10/16/17 17:28 97.5 F L 78 16 186/75 96 10/16/17 11:39 98.3 F 75 16 167/81 98 Intake and Output 10/16/17 10/17/17 10/17/17 23:59 07:59 15:59 Intake Total 1000 / 1000 Balance 1000 / 1000 Intake: IV Fluids 1000 / 1000 0.9 % Sodium Chloride 1,000 ML 1000 / 1000 @ 100 mls/hr IVC .Q10H URSULA Rx#: [id number] Other: Weight 67.6 kg Blood Glucose* 108 105 Patient Weight 10/17/17 23:59 Weight 67.6 kg Height: 5'6" Weight: 149# BMI = 24 NPO (# of Hours): MNoc - HEENT Pupil (Motor): Pupils equal, EOMI Mallampati: II Teeth: Edentulous Oral Opening: Greater than 3 - SCREEN DOOR MAKER LOC: Oriented, Confused SCREEN DOOR MAKER Motor: Normal RUE, Normal LUE, Normal RLE, Normal LLE, Normal Face SCREEN DOOR MAKER Sensory: Normal: RUE, LUE, RLE, LLE, Face - Cardiac Rhythm: Regular Murmur: None - Pulmonary Breath Sounds: bilateral Clear Respiratory Effort: Symmetrical Anesthesia Assess/Plan ASA Score: 3 Modified Bella Scale for Level of Consciousness: Cooperative, oriented, and tranquil Anesthetic Plan: General Monitoring Plan: Standard Monitors Recovery Plan: PACU Anes Supervising Prov Stmt: Pt seen/evaluated, R&B Discussed, questions answered and consent obtained. Elyssa Staples MD
[2017-10-17] MEDS ORDERED: *HR* Propofol 200 MG/20 ML VIAL IVP ONE (09:11)
[2017-10-17] MEDS ORDERED: Lidocaine -MPF 2% 2 ML VIAL ONE (09:11)
[2017-10-17] MEDS ORDERED: Propofol 500 MG/50 ML INFUS..BTL ONE (09:23)
[2017-10-17] MEDS ORDERED: *HR* FentaNYL (PF) 100 MCG/2 ML VIAL ONE (09:46)
[2017-10-17] MEDS ORDERED: Ondansetron 4 MG/2 ML VIAL ONE (09:58)
[2017-10-17] MEDS ORDERED: Dexamethasone 4 MG/ML VIAL ONE (09:58)
[2017-10-17] MEDS ORDERED: *HR* Promethazine 25 MG/ML VIAL IVP PRN (10:12)
[2017-10-17] MEDS ORDERED: Ondansetron 4 MG/2 ML VIAL IVP ONE (10:12)
--- NOTE | 2017-10-17 10:31 | Anesthesia Evaluation Post Op ---
Date of Encounter: 10/17/17 Time of Encounter: 10:40 - Vital Signs Vital Signs: Vital Signs/O2 Sat/Glucose, Most Current Temp Pulse Resp BP Pulse Ox 10/17/17 07:21 97.8 F 79 17 165/80 98 - Lungs Lungs: Clear Ascult./Percussion - Airway Airway: Non-obstructed - Cardiovascular Regular Rate - Mental Status Mental Status: Alert & Oriented, Answers Appropriately - Pain Pain Scale: 0 - Nausea Vomiting Nausea Vomiting: Not Present - Hydration Hydration: Ice chips - Discharge PostOp Status: Transfer Patient to floor
[2017-10-17] MEDS ORDERED: *HR* EPINEPHrine 1 MG/10 ML SYRINGE INTRATRACH PRN (10:43)
[2017-10-17] MEDS ORDERED: Tetracaine/Benzocaine/Butamben 200MG/SPRAY (100SPY/BOT) MM ONE (10:43)
[2017-10-17 11:21] LABS: Source of Body Fluid RUL BAL
[2017-10-17 12:05] LABS: Basophils # 0.1 K/mcL (0.0-0.2); Basophils % 0.6 %; Eosinophils % 0.1 %; Hematocrit 39.3 % (35.3-44.9); Hemoglobin 13.4 g/dL (11.5-15.4); Immature Granulocytes % 0.2 % (0-4); Lymphocytes # 0.8 K/mcL (0.6-4.6); Lymphocytes % 9.7 %; Mean Corpuscular HGB Conc 34.1 g/dL (31.6-35.5); Mean Corpuscular Hemoglobin 30.6 pg (28.0-33.3); Mean Corpuscular Volume 89.7 fL (83.0-100.0); Monocytes # 0.4 K/mcL (0.0-1.3); Monocytes % 4.9 %; Neutrophils # 7.3 K/mcL (1.6-8.9); Platelet Count 204 K/mcL (140-400); Red Blood Count 4.38 M/mcL (3.82-4.97); Segmented Neutrophils % 84.5 %
[2017-10-17 12:09] LABS: BUN/Creatinine Ratio 16 (6-26); Blood Urea Nitrogen 12 mg/dL (7-20); Calcium 8.5 mg/dL (8.6-10.8); Carbon Dioxide 27 mEq/L (19-29); Chloride 105 mEq/L (98-109); Glucose 173 mg/dL (70-99); Osmolality,Calculated 286 (280-300); Potassium 3.9 mEq/L (3.5-4.5); Sodium 136 mEq/L (136-145); eGFR For African Americans > 60 (> 60); eGFR For Non-African Americans > 60 (> 60)
[2017-10-17 12:13] LABS: Appearance of Body Fluid Cloudy (Clear); Volume of Body Fluid 20 mL
--- NOTE | 2017-10-17 17:38 | Event Note ---
Date of Encounter: 10/17/17 Time of Encounter: 17:35 Status post bronchoscopy notable for right upper lobe fungating mass attempted biopsy complicated by significant bleeding Post procedurally she was transferred from PACU to general nursing floor were noted to be hypotensive with a rapid response called This is likely related to esmolol that was given in the PACU for sinus tachycardia Blood pressure responded to fluid boluses and patient recovered without further intervention Her labs are stable today and repeat checks x-ray is stable I discussed with the patient and her sons at bedside that she will need to return for outpatient advanced interventional pulmonary procedure for biopsy of this lesion which can be performed by my partner Dr Miranda. I will follow-up on the cytology from the BAL that was performed today. Doubt that this will result in a diagnosis He may experience some mild hemoptysis that should clear over the course of the evening if worsening hemoptysis that does not resolve pulmonary should be notified immediately I discussed my recommendations directly with the primary medicine service
--- NOTE | 2017-10-17 18:24 | Internal Med Progress Note ---
Date of Encounter: 10/17/17 Time of Encounter: 11:30 - Assessment and plan (1) Chest pressure Current Visit: Yes Status: Acute Assessment and plan: During examination, patient denies that she ever had chest pressure. She reports that she was seen in the emergency department for a rash and diarrhea. She was started on a blood pressure medicine by her primary care provider gave her a rash. She reports to the admitting physician that she began having chest pressure on Friday, it was intermittent and was produced with exertion. It was located in the left chest there is no radiation. Echocardiogram reveals an LVEF of 65% with mild LV DD no significant valvular dysfunction and all wall segments showed normal motion. Chest x-ray is negative. Troponins are negative 3. Cholesterol is mildly elevated. Patient is already on Lipitor. Patient is mildly hypertensive. She is allergic to lisinopril, renal function is within normal limits, I will start her on a low-dose of hydrochlorothiazide. A1c is within normal limits at 6.1. On 10/17, patient was a rapid response. At that time patient denied chest pain. Her troponin was negative. EKG was normal sinus rhythm without any ST changes. Continue telemetry. Chest X-Ray 10/15/17 10:01 IMPRESSION: 1. No convincing acute cardiopulmonary abnormality. 2. Mild elevation of the left hemidiaphragm. D/ / Best Landrum MD / Best Landrum MD Interpreting Provider: Best Landrum MD Head CT 10/15/17 10:02 IMPRESSION: 1. No acute intracranial abnormality. 2. Moderate chronic microvascular ischemic change. 3. Scattered atherosclerosis. D/ / Best Landrum MD / Best Landrum MD Interpreting Provider: Best Landrum MD Abdomen/Pelvis CTA 10/15/17 13:15 IMPRESSION: No thoracic or abdominal aortic aneurysm or dissection is identified. No pulmonary emboli are seen. There appears to be an endobronchial mass identified within the distal aspect of the right upper lobe bronchus, which then extends into multiple segmental bronchi from this central aspect. Differential considerations include malignancy, though a non malignant differential consideration is allergic bronchopulmonary aspergillosis. Recommend further evaluation with bronchoscopy and possible biopsy. No mediastinal lymphadenopathy or spiculated lung mass is identified. Benign-appearing liver cysts and small right renal cyst, as well as a partially calcified cystic lesion in the spleen which appears stable. Mild left-sided hydronephrosis and hydroureter, as well as a moderately distended bladder. Uncertain if this could be related to urinary outlet obstruction. No urinary tract calcification or obstructive mass. There is a small 7 mm hyperenhancing focal lesion seen within the spleen, with differential considerations including benign etiology such as a small hemangioma. A neoplastic process cannot be entirely excluded, and further evaluation could be obtained with PET versus MRI versus biopsy per ACR criteria, though I would not recommend a splenic biopsy for workup. Small suspected 4-6 mm nodules seen in the left thyroid lobe, though somewhat difficult to evaluate given artifact from patient's cardiac leads. Follow up based on recommendations detailed below, which based on the size, no follow-up ultrasound is felt necessary given patient's age unless the patient is at risk for thyroid cancer or has symptomatic thyroid disease. Diverticulosis without acute diverticulitis. RECOMMENDATIONS: Managing Incidental Thyroid Nodule Detected at CT or MRI or US 1. Further evaluation by thyroid Ultrasound recommended for these incidental nodules: Patient Age 18 years or less - Any nodule. Patient Age 19-34 years old - Nodule 1 cm in size or greater Patient Age 35 years or more - Nodule 1.5 cm in size or greater 2. Follow up thyroid ultrasound also recommend in these scenarios -Solitary nodule with high risk imaging features (locally invasive nodule or suspicious lymph nodes) -Any nodule in a heterogeneous enlarged thyroid gland 3. No further imaging is recommended in the following scenarios -No f/u imaging is recommended for ITNs not meeting the above criteria. -No US or f/u recommended for ITNs without high risk features in pts. with limited life expectancy or significant co-morbidities, unless clinically warranted. Note: These recommendations do not apply to pts. w/ increased risk for thyroid cancer or pts. with symptomatic thyroid disease. Recommendations for f/u of Incidental Thyroid Nodules (ITN) found on CT, MR, NM and Extrathyroidal US are based upon the ACR white paper and Zimmer 3-tiered system for managing ITNs: J Am Dion Radiol. 2015 Dec;12(2): 143-50 D/ / 10/15/2017 14:37:17 Ld Larsen MD / arden Interpreting Provider: Ld Larsen MD Chest CTA 10/15/17 13:15 IMPRESSION: No thoracic or abdominal aortic aneurysm or dissection is identified. No pulmonary emboli are seen. There appears to be an endobronchial mass identified within the distal aspect of the right upper lobe bronchus, which then extends into multiple segmental bronchi from this central aspect. Differential considerations include malignancy, though a non malignant differential consideration is allergic bronchopulmonary aspergillosis. Recommend further evaluation with bronchoscopy and possible biopsy. No mediastinal lymphadenopathy or spiculated lung mass is identified. Benign-appearing liver cysts and small right renal cyst, as well as a partially calcified cystic lesion in the spleen which appears stable. Mild left-sided hydronephrosis and hydroureter, as well as a moderately distended bladder. Uncertain if this could be related to urinary outlet obstruction. No urinary tract calcification or obstructive mass. There is a small 7 mm hyperenhancing focal lesion seen within the spleen, with differential considerations including benign etiology such as a small hemangioma. A neoplastic process cannot be entirely excluded, and further evaluation could be obtained with PET versus MRI versus biopsy per ACR criteria, though I would not recommend a splenic biopsy for workup. Small suspected 4-6 mm nodules seen in the left thyroid lobe, though somewhat difficult to evaluate given artifact from patient's cardiac leads. Follow up based on recommendations detailed below, which based on the size, no follow-up ultrasound is felt necessary given patient's age unless the patient is at risk for thyroid cancer or has symptomatic thyroid disease. Diverticulosis without acute diverticulitis. RECOMMENDATIONS: Managing Incidental Thyroid Nodule Detected at CT or MRI or US 1. Further evaluation by thyroid Ultrasound recommended for these incidental nodules: Patient Age 18 years or less - Any nodule. Patient Age 19-34 years old - Nodule 1 cm in size or greater Patient Age 35 years or more - Nodule 1.5 cm in size or greater 2. Follow up thyroid ultrasound also recommend in these scenarios -Solitary nodule with high risk imaging features (locally invasive nodule or suspicious lymph nodes) -Any nodule in a heterogeneous enlarged thyroid gland 3. No further imaging is recommended in the following scenarios -No f/u imaging is recommended for ITNs not meeting the above criteria. -No US or f/u recommended for ITNs without high risk features in pts. with limited life expectancy or significant co-morbidities, unless clinically warranted. Note: These recommendations do not apply to pts. w/ increased risk for thyroid cancer or pts. with symptomatic thyroid disease. Recommendations for f/u of Incidental Thyroid Nodules (ITN) found on CT, MR, NM and Extrathyroidal US are based upon the ACR white paper and Zimmer 3-tiered system for managing ITNs: J Am Dion Radiol. 2015 Dec;12(2): 143-50 D/ / 10/15/2017 14:37:17 Ld Larsen MD / arden Interpreting Provider: Ld Larsen MD Thyroid Ultrasound 10/16/17 15:30 IMPRESSION: Atrophic thyroid with heterogeneous parenchyma, suggesting chronic thyroiditis. No definite discrete nodules are identified. D/ / Darvin Amaro MD / Darvin Amaro MD Interpreting Provider: Darvin Amaro MD Echocardiogram 10/16/17 17:41 Impressions: LVEF 65%. Mild concentric left ventricular hypertrophy. Mild left ventricular diastolic dysfunction. Normal right ventricular structure and function. No significant valvular dysfunction. No evidence of pulmonary hypertension. Left Ventricular Wall Motion: Rest Echo Findings All wall segments showed normal motion. Findings: Study Quality * Technically adequate exam. ECG Findings * Normal sinus rhythm. Left Ventricle * LVEF 65%. * Normal left ventricular size. * Mild concentric left ventricular hypertrophy. * Mild left ventricular diastolic dysfunction. Right Ventricle * Normal right ventricular structure and function. Left Atrium * Normal left atrial size. Right Atrium * Normal right atrial size. Interatrial Septum * No evidence of PFO by color Doppler. Aortic Valve * Trileaflet aortic valve with normal function. * No aortic regurgitation. * No aortic stenosis. Mitral Valve * Normal mitral valve structure and function. * No mitral regurgitation. * No mitral stenosis. Tricuspid Valve * Normal tricuspid valve structure and function. * Trace tricuspid regurgitation. * No evidence of pulmonary hypertension. Pulmonic Valve * Normal pulmonic valve structure and function. * Trace pulmonic regurgitation. Aorta * Normally sized aortic root. Pericardium * The pericardium appears normal. IVC * Normal IVC dimensions and inspiratory collapse. Pulmonary Artery * Normal visualized portions of the main pulmonary artery. (2) HTN (hypertension) Current Visit: Yes Status: Chronic Assessment and plan: Patient is mildly hypertensive. I have added hydrochlorothiazide 12.5 mg by mouth daily. Continue to monitor vital signs. Qualifiers: Hypertension type: essential hypertension Qualified Code(s): I10 - Essential (primary) hypertension (3) Diabetes Current Visit: Yes Status: Chronic Assessment and plan: A1c is 6.1%. Continue sliding scale insulin, Accu-Cheks before meals at bedtime , diabetic diet. Blood sugars have been within normal limits today. Qualifiers: Diabetes mellitus type: type 2 Diabetes mellitus complication status: with unspecified complications Diabetes mellitus chcf insulin use: unspecified chcf insulin use status Qualified Code(s): E11.8 - Type 2 diabetes mellitus with unspecified complications (4) Hyperlipemia Current Visit: Yes Status: Chronic Assessment and plan: Chronic. Cholesterol is mildly elevated at 237. Patient is already on Lipitor. Will recommend lifestyle changes. Qualifiers: Hyperlipidemia type: mixed hyperlipidemia Qualified Code(s): E78.2 - Mixed hyperlipidemia (5) Hx of fall Current Visit: Yes Status: Chronic Assessment and plan: Physical therapy and occupational therapy on board for evaluations. Patient denies falls today, initial report was that she had fallen twice at home. Patient had 2 missed visits by PT today. We will wait on evaluation tomorrow. Fall precautions PTOT Bed alarm (6) Thyroid disease Current Visit: Yes Status: Chronic Assessment and plan: Patient with chronic thyroid disease. TSH is within normal limits. Per CT, there were small 4-6 millimeter nodule seen in the left thyroid lobe. Patient had thyroid ultrasound that showed atrophic thyroid with heterogenous parenchyma , suggesting chronic thyroiditis. No definite discrete nodules were identified. Patient reports chronic thyroid disease and medication for 20+ years. (7) Endobronchial mass Current Visit: Yes Status: Acute Assessment and plan: Per CT. There appears to be an endobronchial mass identified within the distal aspect of the right upper lobe bronchus, extends into multiple segmental bronchi from the central aspect. He should have bronchoscopy today. A lesion was found on the right upper lobe, large completely obstructing fungating infiltrative and vascular lesion was found in the right upper lobe. Due to significant bleeding during an attempted biopsy, no specimen was retrieved. BAL was performed in the right upper lobe and sent for cell count, bacterial culture, viral smears and culture, fungal and AFB analysis and cytology. Pulmonology spoke with family and patient. She will follow-up in the office after discharge. Pulmonology consulted. I appreciate the recommendation consultations. Patient will follow-up in the office after discharge. (8) DVT prophylaxis Current Visit: Yes Status: Acute Assessment and plan: Heparin subcutaneous daily. (9) Hydronephrosis Current Visit: Yes Status: Acute Assessment and plan: Per CT abd/pelvis with contrast. Retroperitoneal US ordered, straight cath ordered. Retroperitoneal ultrasound showed no right hydronephrosis, no definite left hydronephrosis. It was noted to the urinary bladder is questionably thick sanders , may indicate underlying cystitis, UA shows small amount of blood, large amount leukocyte esterase, 5-15 microscopic red cells, too numerous to count white cells. Urine culture is indicated and pending. The right ureteral jet is seen, no left ureteral jet identified. Qualifiers: Hydronephrosis type: unspecified Qualified Code(s): N13.30 - Unspecified hydronephrosis (10) UTI (urinary tract infection) Current Visit: Yes Status: Acute Assessment and plan: Patient of retroperitoneal ultrasound last night to evaluate for possible hydronephrosis. Bladder wall is thickened, indicative of cystitis. Straight catheter urine was obtained here and is cloudy, is a small amount of blood with large leukocyte esterase, 5-15 microscopic red cells too numerous to count microscopic white cells. Urine culture is indicated and pending. Patient is being treated with Rocephin 1 g IV. Patient states that she is allergic to penicillins, indicates that allergy is dizziness. We will administer 1 dose of Rocephin and monitor. Qualifiers: Urinary tract infection type: acute cystitis Hematuria presence: with hematuria Qualified Code(s): N30.01 - Acute cystitis with hematuria - Time Spent With Patient 25 - 35 minutes - Subjective Interval history: Patient was seen and assessed after her bronchoscopy at 11:30. She was a rapid response earlier today after returning from bronchoscopy. At the time she said that she was nauseated. Most likely cause is hypotension, vasovagal response with nausea and sedation. Patient was alert and oriented. She was hypotensive and clammy, pale. She was resuscitated with fluids and recovered well. At this time she reports hemoptysis earlier in the afternoon. She states that she is very tired. She said she is going to try to eat dinner and get some rest. She denies headache or chest pain, no shortness of breath, reports some mild nausea but denies need for medication. She denies abdominal pain on the nausea or diarrhea. Patient will most likely be discharged in the morning after observation overnight. - Constitutional Vitals: Temp Pulse Resp BP Pulse Ox 98.3 F 95 16 159/71 98 10/17/17 15:09 10/17/17 15:09 10/17/17 15:09 10/17/17 15:09 10/17/17 15:09 General appearance: Present: cooperative, A&O X 3, pleasant, no acute distress, answers questions appropriately - Head Head exam: Present: atraumatic, normal inspection, normocephalic - Eye Eye exam: Present: normal appearance, conjuntiva pink, sclera anicteric - Neck Neck exam general surgery: Present: normal inspection, supple, trachea midline. Absent: lymphadenopathy, tenderness - Respiratory Respiratory exam: Present: CTAB. Absent: accessory muscle use, chest wall tenderness, decreased breath sounds, rales, rhonchi, wheezes - Cardiovascular Cardiovascular exam: Present: RRR, +S1, +S2. Absent: diastolic murmur, gallop, rubs, systolic murmur - GI/Abdominal GI/Abdominal exam: Present: normal bowel sounds, soft. Absent: distended, hepatomegaly, tenderness - Extremities Exam Extremities exam: Present: normal capillary refill, normal inspection, warm, radial pulses palpable and symmetrical. Absent: calf tenderness, cyanotic, pedal edema - Neurological Exam Neurological exam: Present: alert, oriented X3, no focal deficits. Absent: facial droop, speech deficit - Skin Skin exam: Present: dry, intact, normal color, warm. Absent: rash Internal Medicine: Result - Labs CBC & Chem 7: 10/17/17 11:47 10/17/17 11:47 Labs: Short CBC 10/17/17 10/17/17 Range/Units 05:40 11:47 WBC 9.3 8.6 (4.3-11.1) K/mcL Hgb 13.6 13.4 (11.5-15.4) g/dL Hct 39.9 39.3 (35.3-44.9) % Plt Count 211 204 (140-400) K/mcL Neutrophils # 6.2 7.3 (1.6-8.9) K/mcL BMP 10/17/17 10/17/17 05:40 11:47 Sodium 136 D 136 Potassium 3.4 L 3.9 Chloride 104 105 Carbon Dioxide 22 27 BUN 14 12 Creatinine 0.65 0.75 Glucose 114 H 173 H Calcium 8.5 L 8.5 L Cardiac Enzymes 10/17/17 Range/Units 11:47 Troponin I 0.00 (0-0.03) ng/mL Liver Function 10/17/17 Range/Units 05:40 Total Bilirubin 0.9 (0.2-1.2) mg/dL AST 13 (5-34) Units/L ALT 9 (0-55) Units/L Alkaline Phosphatase 50 (38-126) Units/L Albumin 3.3 L (3.5-5.0) g/dL Urine 10/17/17 Range/Units 08:10 Urine Color Yellow (Yellow) Urine Clarity Cloudy A (Clear) Urine pH 7.0 (5.0-8.0) pH Units Ur Specific [place] 1.013 (1.010-1.025) Urine Protein Negative (Neg-Trace) mg/dL Urine Glucose (UA) Normal (Normal) mg/dL - ABG Interpretation ABG results: PT/INR, D-dimer PT 10.4 Seconds (9.4-12.1) 10/16/17 14:57 - Impressions Impressions Retroperitoneum Ultrasound 10/16/17 19:00 IMPRESSION: No right hydronephrosis. No definite left hydronephrosis although the left kidney is slightly suboptimally visualized. Urinary bladder is questionably thick-walled, possibly due to slight underdistention, however may indicate underlying cystitis. Correlate with urinalysis. The right ureteral jet is seen. No left ureteral jet identified. If there is ongoing concern for obstructive uropathy, recommend evaluation with CT. D/ / Pako Swift / Pako Swift Interpreting Provider: Pako Swift Chest X-Ray 10/17/17 12:39 IMPRESSION: 1. No pneumothorax post bronchoscopy. 2. Retrocardiac opacity favored to represent atelectasis. D/ / Justo Yin MD / Justo Yin MD Interpreting Provider: Justo Yin MD Consult Discharge Plan - Plan Referrals: Derek Maharaj Jr, MD [Primary Care Provider] - 10/27/17 3:00 pm
[2017-10-17] MEDS ORDERED: cefTRIAXone 1,000 MG in Water for inj. (sterile) 10 ML IVP SCH (19:00)
[2017-10-18] MEDS: 0.9 % Sodium Chloride 1,000 ML IVC SCH (05:46)
[2017-10-18] MEDS: *HR* Heparin 5,000 UNIT/ML VIAL SQ SCH (05:51)
[2017-10-18 06:34] LABS: Basophils % 0.3 %; Eosinophils % 0.3 %; Hematocrit 40.5 % (35.3-44.9); Hemoglobin 13.9 g/dL (11.5-15.4); Immature Granulocytes % 0.4 % (0-4); Lymphocytes # 2.5 K/mcL (0.6-4.6); Lymphocytes % 21.5 %; Mean Corpuscular HGB Conc 34.3 g/dL (31.6-35.5); Mean Corpuscular Hemoglobin 30.5 pg (28.0-33.3); Mean Platelet Volume 9.1 fL (9.4-12.4); Monocytes # 1.1 K/mcL (0.0-1.3); Monocytes % 9.6 %; Neutrophils # 7.8 K/mcL (1.6-8.9); Platelet Count 216 K/mcL (140-400); Red Blood Count 4.55 M/mcL (3.82-4.97); Red Cell Distribution Width 12.9 % (11.5-14.5); Segmented Neutrophils % 67.9 %
[2017-10-18 06:47] LABS: Alanine Aminotransferase 12 Units/L (0-55); Albumin 3.4 g/dL (3.5-5.0); Albumin/Globulin Ratio 1.2 (1.1-2.2); Alkaline Phosphatase 51 Units/L (38-126); Aspartate Amino Transferase 14 Units/L (5-34); BUN/Creatinine Ratio 14 (6-26); Bilirubin,Total 1.2 mg/dL (0.2-1.2); Blood Urea Nitrogen 10 mg/dL (7-20); Calcium 8.5 mg/dL (8.6-10.8); Carbon Dioxide 23 mEq/L (19-29); Chloride 103 mEq/L (98-109); Globulin 2.8 g/dL (2.4-3.5); Glucose 105 mg/dL (70-99); Osmolality,Calculated 277 (280-300); Potassium 3.3 mEq/L (3.5-4.5); Sodium 134 mEq/L (136-145); Total Protein 6.2 g/dL (6.0-8.3); eGFR For African Americans > 60 (> 60); eGFR For Non-African Americans > 60 (> 60)
[2017-10-18] MEDS: Insulin LISPRO 300 UNITS/3 ML VIAL SQ SCH ×2 (08:39→12:20)
[2017-10-18] MEDS: (Cyclosporine [Restasis] 1 DROP) OP SCH (08:46)
[2017-10-18] MEDS: valACYclovir 500 MG TABLET PO SCH (08:51)
[2017-10-18] MEDS: Aspirin 81 MG TAB.CHEW PO SCH (08:51)
[2017-10-18] MEDS ORDERED: hydroCHLOROthiazide 25 MG TABLET PO SCH (09:00)
--- NOTE | 2017-10-18 11:06 | Pulmonology Progress Note ---
Date of Encounter: 10/18/17 Time of Encounter: 11:03 Assessment and Plan (1) Endobronchial mass Current Visit: Yes Status: Acute Status post bronchoscopy on 10/17 with noted right upper lobe endobronchial tumor biopsy was attempted complicated by significant bleeding requiring application of topical epinephrine. Plan to bring patient back as outpatient for repeat bronchoscopy for biopsy that can be done with APC available This will organized by the outpatient pulmonary clinic Follow-up cytology which we will also notify her of the results Pulmonary we will sign off please call for questions Subjective Principal diagnosis: Lung Mass Interval history: She did relatively well overnight status post bronchoscopy. She is complaining of a sore throat and occasionally will cough up some blood streaked sputum remained hemodynamically stable Objective PUL Vital signs: Last Vital Signs Temp 97.9 F 10/18/17 08:19 Pulse 71 10/18/17 08:19 Resp 16 10/18/17 08:19 BP 188/75 10/18/17 08:19 Pulse Ox 97 10/18/17 08:19 General appearance: no acute distress Auscultation: bilateral: clear Gastrointestinal: normoactive bowel sounds, soft, non-tender Extremities: no edema Results - Laboratory Findings CBC and BMP: 10/18/17 06:15 10/18/17 06:15 PT/INR, D-dimer PT 10.4 Seconds (9.4-12.1) 10/16/17 14:57 Abnormal lab findings: Abnormal lab results WBC 11.6 K/mcL (4.3-11.1) H 10/18/17 06:15 MPV 9.1 fL (9.4-12.4) L 10/18/17 06:15 Sodium 134 mEq/L (136-145) L 10/18/17 06:15 Potassium 3.3 mEq/L (3.5-4.5) L 10/18/17 06:15 Glucose 105 mg/dL (70-99) H 10/18/17 06:15 POC Glucose 121 (58-89) H 10/17/17 18:07 Hemoglobin A1c 6.1 % (-5.6) H 10/16/17 01:03 Calculated Osmolality 277 (280-300) L 10/18/17 06:15 Calcium 8.5 mg/dL (8.6-10.8) L 10/18/17 06:15 Albumin 3.4 g/dL (3.5-5.0) L 10/18/17 06:15 Cholesterol 237 mg/dL (< 200) H 10/16/17 01:03 LDL Cholesterol, Calc 168 mg/dL (0-99) H 10/16/17 01:03 Urine Clarity Cloudy (Clear) A 10/17/17 08:10 Urine Blood Small (Negative) H 10/17/17 08:10 Ur Leukocyte Esterase Large (Negative) H 10/17/17 08:10 Urine Microscopic RBC 5-15 per hpf (0-3) H 10/17/17 08:10 Urine Microscopic WBC TNTC per hpf (0-3) H 10/17/17 08:10 Ur Culture Indicated? YES (NO) A 10/17/17 08:10 Fluid Appearance Cloudy (Clear) A 10/17/17 10:44 - Clinical Findings Intake & Output: Intake & Output 10/17/17 10/18/17 10/18/17 23:59 07:59 15:59 Intake Total 1000 / 1000 Output Total 0 / 0 Balance 1000 / 1000 Weight 67.358 kg Consult Discharge Plan - Plan Referrals: Derek Maharaj Jr, MD [Primary Care Provider] - 10/27/17 3:00 pm
[2017-10-18] MEDS ORDERED: Chloraseptic Spray 177 ML BOTTLE MM PRN (14:32)
[2017-10-18 15:23] VITALS: BP 177/77
--- NOTE | 2017-10-18 15:35 | Discharge Summary ---
Date of Encounter: 10/18/17 Time of Encounter: 09:35 - Discharge Diagnosis (1) Chest pressure Priority: Primary Status: Acute Comments: During examination, patient denies that she ever had chest pressure. She reports that she was seen in the emergency department for a rash and diarrhea. She was started on a blood pressure medicine by her primary care provider gave her a rash. She reports to the admitting physician that she began having chest pressure on Friday, it was intermittent and was produced with exertion. It was located in the left chest there is no radiation. Echocardiogram reveals an LVEF of 65% with mild LV DD no significant valvular dysfunction and all wall segments showed normal motion. Chest x-ray is negative. Troponins are negative 3. Cholesterol is mildly elevated. Patient is already on Lipitor. Patient is mildly hypertensive. She is allergic to lisinopril, renal function is within normal limits, I will start her on a low-dose of hydrochlorothiazide. A1c is within normal limits at 6.1. On 10/17, patient was a rapid response. At that time patient denied chest pain. Her troponin was negative. EKG was normal sinus rhythm without any ST changes. Patient continues to deny chest pressure or pain, shortness of breath, nausea vomiting or diaphoresis throughout visit. Vital signs are stable, labs are stable and within normal limits. Patient has mild leukocytosis, most likely reactive to bronchoscopy yesterday. There is no fever or tachycardia, patient is normotensive. She is stable for discharge. Chest CTA 10/15/17 13:15 IMPRESSION: No thoracic or abdominal aortic aneurysm or dissection is identified. No pulmonary emboli are seen. There appears to be an endobronchial mass identified within the distal aspect of the right upper lobe bronchus, which then extends into multiple segmental bronchi from this central aspect. Differential considerations include malignancy, though a non malignant differential consideration is allergic bronchopulmonary aspergillosis. Recommend further evaluation with bronchoscopy and possible biopsy. No mediastinal lymphadenopathy or spiculated lung mass is identified. Benign-appearing liver cysts and small right renal cyst, as well as a partially calcified cystic lesion in the spleen which appears stable. Mild left-sided hydronephrosis and hydroureter, as well as a moderately distended bladder. Uncertain if this could be related to urinary outlet obstruction. No urinary tract calcification or obstructive mass. There is a small 7 mm hyperenhancing focal lesion seen within the spleen, with differential considerations including benign etiology such as a small hemangioma. A neoplastic process cannot be entirely excluded, and further evaluation could be obtained with PET versus MRI versus biopsy per ACR criteria, though I would not recommend a splenic biopsy for workup. Small suspected 4-6 mm nodules seen in the left thyroid lobe, though somewhat difficult to evaluate given artifact from patient's cardiac leads. Follow up based on recommendations detailed below, which based on the size, no follow-up ultrasound is felt necessary given patient's age unless the patient is at risk for thyroid cancer or has symptomatic thyroid disease. Diverticulosis without acute diverticulitis. RECOMMENDATIONS: Managing Incidental Thyroid Nodule Detected at CT or MRI or US 1. Further evaluation by thyroid Ultrasound recommended for these incidental nodules: Patient Age 18 years or less - Any nodule. Patient Age 19-34 years old - Nodule 1 cm in size or greater Patient Age 35 years or more - Nodule 1.5 cm in size or greater 2. Follow up thyroid ultrasound also recommend in these scenarios -Solitary nodule with high risk imaging features (locally invasive nodule or suspicious lymph nodes) -Any nodule in a heterogeneous enlarged thyroid gland 3. No further imaging is recommended in the following scenarios -No f/u imaging is recommended for ITNs not meeting the above criteria. -No US or f/u recommended for ITNs without high risk features in pts. with limited life expectancy or significant co-morbidities, unless clinically warranted. Note: These recommendations do not apply to pts. w/ increased risk for thyroid cancer or pts. with symptomatic thyroid disease. Recommendations for f/u of Incidental Thyroid Nodules (ITN) found on CT, MR, NM and Extrathyroidal US are based upon the ACR white paper and Zimmer 3-tiered system for managing ITNs: J Am Dion Radiol. 2015 Dec;12(2): 143-50 D/ / 10/15/2017 14:37:17 Ld Larsen MD / arden Interpreting Provider: Ld Larsen MD Echocardiogram 10/16/17 17:41 Impressions: LVEF 65%. Mild concentric left ventricular hypertrophy. Mild left ventricular diastolic dysfunction. Normal right ventricular structure and function. No significant valvular dysfunction. No evidence of pulmonary hypertension. Left Ventricular Wall Motion: Rest Echo Findings All wall segments showed normal motion. Findings: Study Quality * Technically adequate exam. ECG Findings * Normal sinus rhythm. Left Ventricle * LVEF 65%. * Normal left ventricular size. * Mild concentric left ventricular hypertrophy. * Mild left ventricular diastolic dysfunction. Right Ventricle * Normal right ventricular structure and function. Left Atrium * Normal left atrial size. Right Atrium * Normal right atrial size. Interatrial Septum * No evidence of PFO by color Doppler. Aortic Valve * Trileaflet aortic valve with normal function. * No aortic regurgitation. * No aortic stenosis. Mitral Valve * Normal mitral valve structure and function. * No mitral regurgitation. * No mitral stenosis. Tricuspid Valve * Normal tricuspid valve structure and function. * Trace tricuspid regurgitation. * No evidence of pulmonary hypertension. Pulmonic Valve * Normal pulmonic valve structure and function. * Trace pulmonic regurgitation. Aorta * Normally sized aortic root. Pericardium * The pericardium appears normal. IVC * Normal IVC dimensions and inspiratory collapse. Pulmonary Artery * Normal visualized portions of the main pulmonary artery. Retroperitoneum Ultrasound 10/16/17 19:00 IMPRESSION: No right hydronephrosis. No definite left hydronephrosis although the left kidney is slightly suboptimally visualized. Urinary bladder is questionably thick-walled, possibly due to slight underdistention, however may indicate underlying cystitis. Correlate with urinalysis. The right ureteral jet is seen. No left ureteral jet identified. If there is ongoing concern for obstructive uropathy, recommend evaluation with CT. D/ / Pako Swift / Pako Swift Interpreting Provider: Pako Swift Chest X-Ray 10/17/17 12:39 IMPRESSION: 1. No pneumothorax post bronchoscopy. 2. Retrocardiac opacity favored to represent atelectasis. D/ / Justo Yin MD / Justo Yin MD Interpreting Provider: Justo Yin MD (2) HTN (hypertension) Priority: Secondary Status: Chronic Comments: Patient has been mildly hypertensive. I added hydrochlorothiazide 12.5 mg, then I increased it to 25 mg. Patient should follow up with primary care for monitoring and medication adjustments. Qualifiers: Hypertension type: essential hypertension Qualified Code(s): I10 - Essential (primary) hypertension (3) Diabetes Priority: Secondary Status: Chronic Comments: A1c is 6.1%. Continue home medication and Accu-Chek regimen. Qualifiers: Diabetes mellitus type: type 2 Diabetes mellitus complication status: with unspecified complications Diabetes mellitus group home insulin use: unspecified group home insulin use status Qualified Code(s): E11.8 - Type 2 diabetes mellitus with unspecified complications (4) Hyperlipemia Priority: Secondary Status: Chronic Comments: Cholesterol is mildly elevated at 237. Continue Lipitor at home. Recommend lifestyle changes and diet modifications. Qualifiers: Hyperlipidemia type: mixed hyperlipidemia Qualified Code(s): E78.2 - Mixed hyperlipidemia (5) Hx of fall Priority: Secondary Status: Chronic Comments: Patient reported falls prior to admission. She has been off all precautions here. She has been evaluated by physical therapy and occupational therapy and she is found to be able to return home and is functioning at her baseline. Recommend patient use walker, remove area rugs and cords, wear nonslip socks or shoes in the home, move from sitting to standing slowly. (6) Thyroid disease Priority: Secondary Status: Chronic Comments: Patient with chronic thyroid disease. TSH is within normal limits. Per CT, there were small 4-6 millimeter nodule seen in the left thyroid lobe. Patient had thyroid ultrasound that showed atrophic thyroid with heterogenous parenchyma , suggesting chronic thyroiditis. No definite discrete nodules were identified. Patient reports chronic thyroid disease and medication for 20+ years. Thyroid Ultrasound 10/16/17 15:30 IMPRESSION: Atrophic thyroid with heterogeneous parenchyma, suggesting chronic thyroiditis. No definite discrete nodules are identified. D/ / Darvin Amaro MD / Darvin Amaro MD Interpreting Provider: Darvin Amaro MD (7) Endobronchial mass Priority: Secondary Status: Acute Comments: Per CT. There appears to be an endobronchial mass identified within the distal aspect of the right upper lobe bronchus, extends into multiple segmental bronchi from the central aspect. Bronchoscopy performed by pulmonology. A lesion was found on the right upper lobe, large completely obstructing fungating infiltrative and vascular lesion was found in the right upper lobe. Due to significant bleeding during an attempted biopsy, no specimen was retrieved. BAL was performed in the right upper lobe and sent for cell count, bacterial culture, viral smears and culture , fungal and AFB analysis and cytology. Pulmonology spoke with family and patient. She will follow-up in the office after discharge. (8) DVT prophylaxis Priority: Secondary Status: Acute Comments: Heparin subcutaneous daily. Patient has been ambulatory. (9) Hydronephrosis Priority: Secondary Status: Acute Comments: Per CT abd/pelvis with contrast. Retroperitoneal US ordered, straight cath ordered. Retroperitoneal ultrasound showed no right hydronephrosis, no definite left hydronephrosis. It was noted to the urinary bladder is questionably thick sanders , may indicate underlying cystitis.The right ureteral jet is seen, no left ureteral jet identified. UA shows small amount of blood, large amount leukocyte esterase, 5-15 microscopic red cells, too numerous to count white cells. Urine culture was negative. No growth. Qualifiers: Hydronephrosis type: unspecified Qualified Code(s): N13.30 - Unspecified hydronephrosis (10) UTI (urinary tract infection) Priority: Secondary Status: Chronic Comments: Patient of retroperitoneal ultrasound last night to evaluate for possible hydronephrosis. Bladder wall is thickened, indicative of cystitis. Straight catheter urine was obtained here and is cloudy, is a small amount of blood with large leukocyte esterase, 5-15 microscopic red cells too numerous to count microscopic white cells. Patient is being treated with Rocephin 1 g IV. Patient states that she is allergic to penicillins, indicates that allergy is dizziness. We will administer 1 dose of Rocephin and monitor. Urine culture was negative. No growth. Antibiotic has been DC'd. She will not go home with by mouth antibiotics. Qualifiers: Urinary tract infection type: acute cystitis Hematuria presence: with hematuria Qualified Code(s): N30.01 - Acute cystitis with hematuria - Discharge Medications Home Medications: Aspirin 81 mg PO DAILY 02/04/17 [History] Calcium Carbonate/Vitamin D3 [Calcium 600 + Vit D Tablet] 2 tab PO DAILY [History] Cyclosporine [Restasis] 1 drop BOTH EYES BID 02/04/17 [History] LORazepam [Ativan] 0.5 - 1 mg PO DAILY PRN 02/04/17 [History] Levothyroxine [Synthroid] 88 mcg PO DAILY 02/04/17 [History] Losartan Potassium [Cozaar] 50 mg PO BID 02/04/17 [History] valACYclovir [Valtrex] 500 mg PO BID 02/04/17 [History] Glucosamn/Condroitn/C/Mn/[place] [[facility] Glucosamine Chondroitin Tb] 1 tab PO DAILY 03/31/17 [History] Ciclopirox 1 appl TP BID 10/15/17 [History] Desonide [Tridesilon] 1 appl TP BID 10/15/17 [History] Metoprolol XL (24 HR) Succ [Toprol Xl] 25 mg PO BID 10/15/17 [History] Allergies/Adverse Reactions: 3 Allergy/AdvReac Type Severity Reaction Status Date / Time fexofenadine Allergy See Verified 10/15/17 11:18 [From Angie-D 12 Hour] Comments meperidine [From Demerol] Allergy Hives Verified 10/15/17 11:18 Nickel Allergy Rash Verified 10/15/17 11:18 nitrofurantoin Allergy Hives Verified 10/15/17 11:18 pseudoephedrine Allergy See Verified 10/15/17 11:18 [From Angie-D 12 Hour] Comments acetaminophen [From Tylenol] AdvReac Dizziness Verified 10/15/17 11:18 ampicillin AdvReac Dizziness Verified 10/15/17 11:18 bupivacaine [From Marcaine] AdvReac Hypotension Verified 10/15/17 11:18 cephalexin AdvReac Nausea Verified 10/15/17 11:18 ciprofloxacin [From Cipro] AdvReac Nausea Verified 10/15/17 11:18 clarithromycin [From Biaxin] AdvReac Nausea Verified 10/15/17 11:18 codeine AdvReac Nausea Verified 10/15/17 11:18 Erythromycin Base AdvReac Nausea Verified 10/15/17 11:18 esomeprazole [From Nexium] AdvReac Nausea Verified 10/15/17 11:18 estrogens, conjugated AdvReac Gastrointestinal Verified 10/15/17 11:18 [From Premarin] Upset Iodinated Contrast- Oral and AdvReac Nausea Verified 10/15/17 11:18 IV Dye [Iodinated Contrast Media - Oral and] iodine AdvReac Nausea Verified 10/15/17 11:18 lidocaine AdvReac Hypotension Verified 10/15/17 11:18 lisinopril AdvReac Hypertensio Verified 10/15/17 11:18 n metformin AdvReac Dizziness Verified 10/15/17 11:18 moxifloxacin [From Avelox] AdvReac Nausea Verified 10/15/17 11:18 Oxycodone AdvReac Dizziness Verified 10/15/17 11:18 Paroxetine [From Paxil] AdvReac Nausea Verified 10/15/17 11:18 Penicillins AdvReac Dizziness Verified 10/15/17 11:18 Prilocaine AdvReac Hypotension Verified 10/15/17 11:18 prochlorperazine AdvReac Blurry Verified 10/15/17 11:18 [From Compazine] Vision Sulfa (Sulfonamide AdvReac Nausea Verified 10/15/17 11:18 Antibiotics) sulfamethoxazole AdvReac Nausea Verified 10/15/17 11:18 [From Bactrim] telmisartan [From Micardis] AdvReac Hypertensio Verified 10/15/17 11:18 n Tetracycline AdvReac Nausea Verified 10/15/17 11:18 trimethoprim [From Bactrim] AdvReac Nausea Verified 10/15/17 11:18 Procedures/tests Complete & Pending: Procedures Performed prior 72 hours Category Date Time Status US retroperitoneal comp [US] Routine Exams 10/16/17 19:00 Completed thyroid ultrasound [US thyroid] [US] Routine Exams 10/16/17 15:30 Completed EKG [ECG 12 lead ECG] [ECG] Stat Y 10/17/17 11:43 Ordered EV echocardiogram Routine Y 10/16/17 17:41 Completed Date of admission: 10/15/17 16:22 Primary care physician: Derek Maharaj Jr, MD Consults: 10/15/17 17:23 Consult to Evp And Chief Operating Officer [CONS] Routine Reason for SW Consult: Please assess patient for possible home needs for post -discharge planning. 10/15/17 17:24 Consult to Occupational Therapy [CONS] Routine Comment: Evaluate, develop and implement POC Reason for Consult: Patient states that she has difficulty ambulating d/t hx of falls and lower back pain. Please assess for strength, stability, safety, ambulation, and possible assistive needs for post-discharge planning. 10/15/17 17:25 Consult to Physical Therapy [CONS] Routine Comment: Evaluate, develop and implement POC Reason for Consult: Patient states that she has difficulty ambulating d/t hx of falls and lower back pain. Please assess for strength, stability, safety, ambulation, and possible assistive needs for post-discharge planning. 10/16/17 13:51 Consult to Pulmonology [CONS] Routine Consulting Provider: [facility] [place] Reason for Consult: endobronchial mass identified by CT, eval for bronch and possible biopsy. Time Notified: 13:53 Call Completed: Yes Discharging clinician: Svetlana Vera Anticipated date of discharge: 10/18/17 - Patient Status Disposition: Home, Self-Care Condition: Good Functional capacity at discharge: uses cane/walker Overall status at discharge: patient is progressing back to baseline - Discharge Instructions Follow Up With: Derek Maharaj Jr, MD [Primary Care Provider] - 10/27/17 3:00 pm Additional Instructions: Please follow-up with Dr. Maharaj in the next 7-10 days for a recheck. Please follow up with pulmonology for biopsy of lung mass. Return to the emergency department as needed for any other problems or concerns. She began having difficulty breathing, please return to the emergency department. Use saltwater gargles and warm tea with honey to soothe her throat. Resume your normal home medications, diet, and activities as tolerated. - Diet and Activity Activity: increase activity as tolerated Diet: advance to your usual diet Hospital course: Ms. Carranza is a 72 year old female with past medical history CVA, hyperlipidemia, thyroid disease, hypertension and diabetes. She was brought to the emergency department for evaluation of chest pain and falls, possible UTI. 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 Patient did not have urinary tract infection. Her labs are stable, vital signs are stable and within normal limits please see assessment and plan for hospital course. Time spent discussing smoking cessation with patient: 3 to 10 minutes - Time Spent with Patient Total time spent providing and/or coordinating discharge services: Less than 30 minutes - Constitutional Vitals: Temp Pulse Resp BP Pulse Ox 97.5 F L 89 18 177/77 97 10/18/17 15:22 10/18/17 15:22 10/18/17 15:22 10/18/17 15:22 10/18/17 15:22 General appearance: Present: cooperative, A&O X 3, pleasant, no acute distress, answers questions appropriately - Head Head exam: Present: atraumatic, normal inspection, normocephalic - Eye Eye exam: Present: normal appearance, conjuntiva pink, sclera anicteric - Neck Neck exam general surgery: Present: supple, trachea midline. Absent: lymphadenopathy - Respiratory Respiratory exam: Present: CTAB. Absent: accessory muscle use, chest wall tenderness, decreased breath sounds, rales, respiratory distress, rhonchi, wheezes - Cardiovascular Cardiovascular exam: Present: RRR, +S1, +S2. Absent: bradycardia, diastolic murmur, gallop, rubs, systolic murmur, tachycardia - GI/Abdominal GI/Abdominal exam: Present: normal bowel sounds, soft. Absent: distended, hepatomegaly, tenderness - Extremities Exam Extremities exam: Present: warm, radial pulses palpable and symmetrical. Absent : calf tenderness, cyanotic, pedal edema - Neurological Exam Neurological exam: Present: alert, oriented X3, no focal deficits. Absent: facial droop, speech deficit - Skin Skin exam: Present: dry, intact, warm. Absent: rash
--- NOTE | 2017-10-20 01:52 | Electrocardiograph Report ---
[address] [id number] Test Date: 2017-10-17 Pat Name: Janell Carranza Department: 113 Room: 3B46 Gender: F Ui Application Developer: : [id number] Requested By: Grant Grace Order Number: [id number] Reading MD: Prabhjot Del Rio MD Measurements Intervals [place] Rate: 94 P: 63 NV: 209 QRS: -26 QRSD: 87 T: 8 QT: 378 QTc: 430 Interpretive Statements SINUS RHYTHM BORDERLINE LEFT AXIS DEVIATION Poor R wave progression BASELINE ARTIFACT Electronically Signed On 10-20-2017 1:50:26 EST by Prabhjot Del Rio MD
== END 2017-10-18 18:05 | disposition home or self-care (01) ==
LOC: EMEROO 09:46 → 3BNU 09:46
PROVIDERS: ADMIT Registered Nurse; ATTEND Registered Nurse

== ENCOUNTER 2018-07-24 20:20 | Inpatient (IN) ==
[2018-07-24] MEDS ORDERED: 0.9 % Sodium Chloride 1,000 ML IVC ONE ×2 (20:33→22:21)
[2018-07-24] MEDS ORDERED: Ondansetron 4 MG/2 ML VIAL IVP ONE (20:33)
--- NOTE | 2018-07-24 20:36 | Emergency Department Note ---
Disposition Clinical Impression: Hyponatremia Abdominal pain Qualifiers: Abdominal location: epigastric Qualified Code(s): R10.13 - Epigastric pain Nausea and vomiting Qualifiers: Vomiting type: unspecified Vomiting Intractability: non-intractable Qualified Code(s): R11.2 - Nausea with vomiting, unspecified Leukocytosis Qualifiers: Leukocytosis type: unspecified Qualified Code(s): D72.829 - Elevated white blood cell count, unspecified Disposition: Admitted As Inpatient Condition: Fair Time of Disposition: 23:55 General Adult HPI - General Time Seen by Provider: 07/24/18 20:21 Source: patient, EMS Mode of arrival: EMS Limitations: no limitations Nursing Notes Reviewed: Yes Vital Signs Reviewed: Yes - History of Present Illness HPI Narrative: Patient is a 73 year old female presents to the emergency Department for nausea and vomiting. Patient states this is been ongoing for the past 24 hours. Patient states that after starting prednisone she developed the symptoms. Patient states that she has nausea and vomiting with prednisone in the past. Patient states that she has generalized abdominal discomfort. Patient denies any blood in her vomit. Patient denies any blood in the stool. Patient denies any fevers chills, chest pain, shortness of breath. Patient states that she does have a history of throat cancer and follows at the [facility] in [place]. - Related Data Home Medications Medication Instructions Recorded Confirmed Aspirin 81 mg PO DAILY 02/04/17 07/24/18 LORazepam [Ativan] 0.5 - 1 mg PO DAILY PRN 02/04/17 07/24/18 Levothyroxine [Synthroid] 88 mcg PO DAILY 02/04/17 07/24/18 Losartan Potassium [Cozaar] 50 mg PO BID 02/04/17 07/24/18 Glucosamn/Condroitn/C/Mn/[place] 1 tab PO DAILY 03/31/17 07/24/18 [[facility] Glucosamine Chondroitin Tb] amLODIPine [Norvasc] 2.5 tab PO BID 02/24/18 07/24/18 Calcium Carbonate/Vitamin D3 2 tab PO DAILY 03/03/18 07/24/18 [Calcium 600-Vit D3 200 Tablet] Cyclosporine [Restasis Multidose] 1 drop OP BID 03/03/18 07/24/18 Loratadine [Claritin] 10 mg PO DAILY 03/03/18 07/24/18 Zoledronic Acid (Reclast) [Reclast 5 mg IV [id number] 03/03/18 07/24/18 Premix 5 MG/100 ML] Allergies Allergy/AdvReac Type Severity Reaction Status Date / Time fexofenadine Allergy See Verified 03/26/18 11:52 [From Angie-D 12 Hour] Comments meperidine [From Demerol] Allergy Hives Verified 03/26/18 11:52 metoprolol Allergy Rash Verified 03/26/18 11:52 Nickel Allergy Rash Verified 03/26/18 11:52 nitrofurantoin Allergy Hives Verified 03/26/18 11:52 Prilocaine Allergy Hypotension Verified 03/26/18 11:52 pseudoephedrine Allergy See Verified 03/26/18 11:52 [From Angie-D 12 Hour] Comments telmisartan [From Micardis] Allergy Hypertensio Verified 03/26/18 11:52 n acetaminophen [From Tylenol] AdvReac Dizziness Verified 03/26/18 11:52 ampicillin AdvReac Dizziness Verified 03/29/18 07:27 bupivacaine [From Marcaine] AdvReac Hypotension Verified 03/29/18 07:27 cephalexin AdvReac Nausea Verified 03/29/18 07:27 ciprofloxacin [From Cipro] AdvReac Nausea Verified 03/29/18 07:27 clarithromycin [From Biaxin] AdvReac Nausea Verified 03/29/18 07:27 codeine AdvReac Nausea Verified 03/29/18 07:27 Erythromycin Base AdvReac Nausea Verified 03/29/18 07:27 esomeprazole [From Nexium] AdvReac Nausea Verified 03/29/18 07:27 estrogens, conjugated AdvReac Gastrointestinal Verified 03/29/18 07:27 [From Premarin] Upset Iodinated Contrast- Oral and AdvReac Nausea Verified 03/29/18 07:27 IV Dye [Iodinated Contrast Media - Oral and] iodine AdvReac Nausea Verified 03/29/18 07:27 lidocaine AdvReac Hypotension Verified 03/29/18 07:27 lisinopril AdvReac Hypertensio Verified 03/29/18 07:27 n metformin AdvReac Dizziness Verified 03/29/18 07:27 moxifloxacin [From Avelox] AdvReac Nausea Verified 03/29/18 07:27 Oxycodone AdvReac Dizziness Verified 03/29/18 07:27 Paroxetine [From Paxil] AdvReac Nausea Verified 03/29/18 07:27 Penicillins AdvReac Dizziness Verified 03/29/18 07:27 prochlorperazine AdvReac Blurry Verified 03/29/18 07:27 [From Compazine] Vision Sulfa (Sulfonamide AdvReac Nausea Verified 03/29/18 07:27 Antibiotics) sulfamethoxazole AdvReac Nausea Verified 03/29/18 07:27 [From Bactrim] Tetracycline AdvReac Nausea Verified 03/29/18 07:27 trimethoprim [From Bactrim] AdvReac Nausea Verified 03/29/18 07:27 All systems ED: reviewed and negative except as stated. Cardiovascular: Denies: chest pain Respiratory: Denies: dyspnea Gastrointestinal: Reports: abdominal pain, nausea, vomiting. 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 Absent: respiratory distress, wheezes - Cardiovascular Cardiovascular exam: Present: regular rate, normal rhythm, normal heart sounds, +S1, +S2 - Abdominal Exam Abdominal exam: Present: soft, Non-Tender, normal bowel sounds - Neurological Exam Neurological exam: Present: alert, oriented X3 - Psychiatric Psychiatric exam: Present: normal affect, normal mood - Skin Skin exam: Present: warm, dry, intact Course Vital Signs Temperature 97.6 F 07/24/18 20:57 Pulse Rate 81 07/24/18 20:57 Respiratory Rate 18 07/24/18 20:57 Blood Pressure 157/77 07/24/18 20:57 O2 Sat by Pulse Oximetry 98 07/24/18 20:57 Temperature 97.6 F 07/24/18 20:57 Pulse Rate 79 07/24/18 23:48 Respiratory Rate 18 07/24/18 23:48 Blood Pressure 155/66 07/24/18 23:48 O2 Sat by Pulse Oximetry 96 07/24/18 23:48 Oxygen Delivery Oxygen Delivery Room Air Medical Decision Making - MDM Narrative Medical decision making narrative: Presenting emergency Department nausea vomiting abdominal pain will obtain basic laboratory testing eating CBC, BMP, hepatic panel, lipase and urinalysis patient has a leukocytosis of 13.8 which is likely to be secondary due to the patient having episodes of vomiting. Patient is hyponatremic with a sodium of 116. Patient does not have any altered mentation. The remainder of her laboratory testing seems to be at about her baseline. Due to the patient having a significant hyponatremia I feel the patient needs to be admitted to the hospital for further evaluation and management. I called and spoke with Dr. Khan and he is accepted the patient to their service. Patient be admitted to the hospital at this time for further evaluation and management. - Medical Records Medical records reviewed: Yes I reviewed the patient's medical records. - Lab Data Lab results reviewed: Yes I reviewed the patient's lab results. Result diagrams: 07/24/18 20:43 07/24/18 20:43 Lab Results 07/24/18 07/24/18 07/24/18 Range/Units 20:43 20:43 21:37 WBC 13.8 H (4.3-11.1) K/mcL RBC 4.20 (3.82-4.97) M/mcL Hgb 12.6 (11.5-15.4) g/dL Hct 34.8 L (35.3-44.9) % MCV 82.9 L (83.0-100.0) fL MCH 30.0 (28.0-33.3) pg MCHC 36.2 H (31.6-35.5) g/dL RDW 12.3 (11.5-14.5) % Plt Count 216 (140-400) K/mcL MPV 8.9 L (9.4-12.4) fL Immature Gran % 1.0 (0-4) % Seg Neutrophils % 80.2 % Lymphocytes % 9.0 % Monocytes % 9.6 % Eosinophils % 0.1 % Basophils % 0.1 % Neutrophils # 11.1 H (1.6-8.9) K/mcL Lymphocytes # 1.2 (0.6-4.6) K/mcL Monocytes # 1.3 (0.0-1.3) K/mcL Eosinophils # 0.0 (0.0-0.6) K/mcL Basophils # 0.0 (0.0-0.2) K/mcL Sodium 116 L* (136-145) mEq/L Potassium 3.3 L (3.5-5.1) mEq/L Chloride 85 L (98-107) mEq/L Carbon Dioxide 24 (23-29) mEq/L BUN 10 (8-23) mg/dL Creatinine 0.49 L (0.60-1.20) mg/dL Est GFR ( Amer) > 60 (> 60) Est GFR (Non-Af Amer) > 60 (> 60) BUN/Creatinine Ratio 20 (6-26) Glucose 163 H (70-105) mg/dL Calculated Osmolality 245 L (280-300) Calcium 8.6 (8.6-10.3) mg/dL Total Bilirubin 0.7 (0.3-1.0) mg/dL Direct Bilirubin 0.1 (0.0-0.2) mg/dL Indirect Bilirubin 0.6 (0.0-1.2) mg/dL AST 15 (13-39) Units/L ALT 11 (7-52) Units/L Alkaline Phosphatase 43 (34-104) Units/L Serum Total Protein 6.0 L (6.4-8.9) g/dL Albumin 4.0 (3.5-5.7) g/dL Globulin 2.0 L (2.4-3.5) g/dL Albumin/Globulin Ratio 2.0 (1.1-2.2) Lipase 16 (11-82) Units/L Urine Color Yellow (Yellow) Urine Clarity Cloudy A (Clear) Urine pH 7.0 (5.0-8.0) pH Units Ur Specific [place] 1.016 (1.010-1.025) Urine Protein 30 H (Neg-Trace) mg/dL Urine Glucose (UA) 100 H (Normal) mg/dL Urine Ketones Negative (Negative) mg/dL Urine Blood Large H (Negative) Urine Nitrite Negative (Negative) Urine Bilirubin Negative (Negative) Urine Urobilinogen Normal (Normal) mg/dL Ur Leukocyte Esterase Moderate H (Negative) Urine Microscopic RBC TNTC H (0-3) per hpf Urine Microscopic WBC 5-15 H (0-3) per hpf Ur Squamous Epith Cells Many H (None-Few) per lpf Urine Bacteria None Seen (None-Few) per hpf Hyaline Casts None Seen (None-Few) per lpf Ur Culture Indicated? NO. A (NO) - Radiology Data Radiology results reviewed: Yes I reviewed the patient's radiology results. KUB X-Ray 07/24/18 22:23 IMPRESSION: Left ureteral stent is unchanged in position. D/ / Helder River MD / Helder River MD Interpreting Provider: Helder River MD - EKG Data EKG #1 EKG attestation: Yes I reviewed and interpreted this EKG. EKG results narrative: EKG shows a sinus rhythm and rate of 75 bpm, VT interval of 202, QRS duration 92 , QTC of 472 with a normal axis. No evidence of STEMI on EKG. This was compared to previous EKG on 03/08/18 which showed a sinus rhythm at a rate of 89 bpm.
[2018-07-24 21:07] LABS: Basophils % 0.1 %; Eosinophils % 0.1 %; Hematocrit 34.8 % (35.3-44.9); Hemoglobin 12.6 g/dL (11.5-15.4); Lymphocytes # 1.2 K/mcL (0.6-4.6); Mean Corpuscular HGB Conc 36.2 g/dL (31.6-35.5); Mean Corpuscular Volume 82.9 fL (83.0-100.0); Mean Platelet Volume 8.9 fL (9.4-12.4); Monocytes # 1.3 K/mcL (0.0-1.3); Monocytes % 9.6 %; Neutrophils # 11.1 K/mcL (1.6-8.9); Platelet Count 216 K/mcL (140-400); Red Cell Distribution Width 12.3 % (11.5-14.5); Segmented Neutrophils % 80.2 %
[2018-07-24 21:33] LABS: Alanine Aminotransferase 11 Units/L (7-52); Alkaline Phosphatase 43 Units/L (34-104); Aspartate Amino Transferase 15 Units/L (13-39); BUN/Creatinine Ratio 20 (6-26); Bilirubin,Direct 0.1 mg/dL (0.0-0.2); Bilirubin,Indirect 0.6 mg/dL (0.0-1.2); Bilirubin,Total 0.7 mg/dL (0.3-1.0); Blood Urea Nitrogen 10 mg/dL (8-23); Calcium 8.6 mg/dL (8.6-10.3); Carbon Dioxide 24 mEq/L (23-29); Chloride 85 mEq/L (98-107); Glucose 163 mg/dL (70-105); Lipase 16 Units/L (11-82); Osmolality,Calculated 245 (280-300); Potassium 3.3 mEq/L (3.5-5.1); Sodium 116 mEq/L (136-145); eGFR For Non-African Americans > 60 (> 60)
[2018-07-24 21:45] LABS: Bilirubin,Urine Negative (Negative); Blood,Urine Large (Negative); Clarity,Urine Cloudy (Clear); Color,Urine Yellow (Yellow); Glucose,Urine (UA) 100 mg/dL (Normal); Ketones,Urine Negative (Negative); Leukocyte Esterase,Urine Moderate (Negative); Nitrite,Urine Negative (Negative); Protein,Urine 30 mg/dL (Neg-Trace); Specific Gravity,Urine 1.016 (1.010-1.025); Urobilinogen,Urine Normal (Normal)
[2018-07-24 21:47] LABS: Bacteria,Urine None Seen per hpf (None-Few); Hyaline Casts,Urine None Seen per lpf (None-Few); RBC,Urine TNTC per hpf (0-3); Squamous Epithelial Cell,Urine Many per lpf (None-Few)
--- NOTE | 2018-07-24 23:07 | Emergency Department Note ---
Disposition Clinical Impression: Hyponatremia Abdominal pain Qualifiers: Abdominal location: epigastric Qualified Code(s): R10.13 - Epigastric pain Nausea and vomiting Qualifiers: Vomiting type: unspecified Vomiting Intractability: non-intractable Qualified Code(s): R11.2 - Nausea with vomiting, unspecified Leukocytosis Qualifiers: Leukocytosis type: unspecified Qualified Code(s): D72.829 - Elevated white blood cell count, unspecified Disposition: Admitted As Inpatient Condition: Fair General Adult HPI - General Chief complaint: ED Abdominal Pain Time Seen by Provider: 07/24/18 20:21 Source: patient, EMS Mode of arrival: EMS Limitations: no limitations Nursing Notes Reviewed: Yes Vital Signs Reviewed: Yes - History of Present Illness Pain Scale: 6 - Related Data Home Medications Medication Instructions Recorded Confirmed Aspirin 81 mg PO DAILY 02/04/17 07/24/18 LORazepam [Ativan] 0.5 - 1 mg PO DAILY PRN 02/04/17 07/24/18 Levothyroxine [Synthroid] 88 mcg PO DAILY 02/04/17 07/24/18 Losartan Potassium [Cozaar] 50 mg PO BID 02/04/17 07/24/18 Glucosamn/Condroitn/C/Mn/[place] 1 tab PO DAILY 03/31/17 07/24/18 [[facility] Glucosamine Chondroitin Tb] amLODIPine [Norvasc] 2.5 tab PO BID 02/24/18 07/24/18 Calcium Carbonate/Vitamin D3 2 tab PO DAILY 03/03/18 07/24/18 [Calcium 600-Vit D3 200 Tablet] Cyclosporine [Restasis Multidose] 1 drop OP BID 03/03/18 07/24/18 Loratadine [Claritin] 10 mg PO DAILY 03/03/18 07/24/18 Zoledronic Acid (Reclast) [Reclast 5 mg IV [id number] 03/03/18 07/24/18 Premix 5 MG/100 ML] Allergies Allergy/AdvReac Type Severity Reaction Status Date / Time fexofenadine Allergy See Verified 03/26/18 11:52 [From Angie-D 12 Hour] Comments meperidine [From Demerol] Allergy Hives Verified 03/26/18 11:52 metoprolol Allergy Rash Verified 03/26/18 11:52 Nickel Allergy Rash Verified 03/26/18 11:52 nitrofurantoin Allergy Hives Verified 03/26/18 11:52 Prilocaine Allergy Hypotension Verified 03/26/18 11:52 pseudoephedrine Allergy See Verified 03/26/18 11:52 [From Angie-D 12 Hour] Comments telmisartan [From Micardis] Allergy Hypertensio Verified 03/26/18 11:52 n acetaminophen [From Tylenol] AdvReac Dizziness Verified 03/26/18 11:52 ampicillin AdvReac Dizziness Verified 03/29/18 07:27 bupivacaine [From Marcaine] AdvReac Hypotension Verified 03/29/18 07:27 cephalexin AdvReac Nausea Verified 03/29/18 07:27 ciprofloxacin [From Cipro] AdvReac Nausea Verified 03/29/18 07:27 clarithromycin [From Biaxin] AdvReac Nausea Verified 03/29/18 07:27 codeine AdvReac Nausea Verified 03/29/18 07:27 Erythromycin Base AdvReac Nausea Verified 03/29/18 07:27 esomeprazole [From Nexium] AdvReac Nausea Verified 03/29/18 07:27 estrogens, conjugated AdvReac Gastrointestinal Verified 03/29/18 07:27 [From Premarin] Upset Iodinated Contrast- Oral and AdvReac Nausea Verified 03/29/18 07:27 IV Dye [Iodinated Contrast Media - Oral and] iodine AdvReac Nausea Verified 03/29/18 07:27 lidocaine AdvReac Hypotension Verified 03/29/18 07:27 lisinopril AdvReac Hypertensio Verified 03/29/18 07:27 n metformin AdvReac Dizziness Verified 03/29/18 07:27 moxifloxacin [From Avelox] AdvReac Nausea Verified 03/29/18 07:27 Oxycodone AdvReac Dizziness Verified 03/29/18 07:27 Paroxetine [From Paxil] AdvReac Nausea Verified 03/29/18 07:27 Penicillins AdvReac Dizziness Verified 03/29/18 07:27 prochlorperazine AdvReac Blurry Verified 03/29/18 07:27 [From Compazine] Vision Sulfa (Sulfonamide AdvReac Nausea Verified 03/29/18 07:27 Antibiotics) sulfamethoxazole AdvReac Nausea Verified 03/29/18 07:27 [From Bactrim] Tetracycline AdvReac Nausea Verified 03/29/18 07:27 trimethoprim [From Bactrim] AdvReac Nausea Verified 03/29/18 07:27 Cardiovascular: Denies: chest pain Respiratory: Denies: dyspnea Gastrointestinal: Reports: abdominal pain, nausea, vomiting. 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 - Social History Smoking Status: Never smoker Smokeless Tobacco Status: No Alcohol use: Reports: none Drug use: Reports: none Physical Exam - General Limitations: no limitations General appearance: alert, in no apparent distress Course Vital Signs Temperature 97.6 F 07/24/18 20:57 Pulse Rate 81 07/24/18 20:57 Respiratory Rate 18 07/24/18 20:57 Blood Pressure 157/77 07/24/18 20:57 O2 Sat by Pulse Oximetry 98 07/24/18 20:57 Temperature 97.6 F 07/24/18 20:57 Pulse Rate 79 07/24/18 23:48 Respiratory Rate 18 07/24/18 23:48 Blood Pressure 155/66 07/24/18 23:48 O2 Sat by Pulse Oximetry 96 07/24/18 23:48 Oxygen Delivery Oxygen Delivery Room Air Medical Decision Making - Medical Records Medical records reviewed: Yes I reviewed the patient's medical records. - Lab Data Lab results reviewed: Yes I reviewed the patient's lab results. Result diagrams: 07/24/18 20:43 07/24/18 20:43 Lab Results 07/24/18 07/24/18 07/24/18 Range/Units 20:43 20:43 21:37 WBC 13.8 H (4.3-11.1) K/mcL RBC 4.20 (3.82-4.97) M/mcL Hgb 12.6 (11.5-15.4) g/dL Hct 34.8 L (35.3-44.9) % MCV 82.9 L (83.0-100.0) fL MCH 30.0 (28.0-33.3) pg MCHC 36.2 H (31.6-35.5) g/dL RDW 12.3 (11.5-14.5) % Plt Count 216 (140-400) K/mcL MPV 8.9 L (9.4-12.4) fL Immature Gran % 1.0 (0-4) % Seg Neutrophils % 80.2 % Lymphocytes % 9.0 % Monocytes % 9.6 % Eosinophils % 0.1 % Basophils % 0.1 % Neutrophils # 11.1 H (1.6-8.9) K/mcL Lymphocytes # 1.2 (0.6-4.6) K/mcL Monocytes # 1.3 (0.0-1.3) K/mcL Eosinophils # 0.0 (0.0-0.6) K/mcL Basophils # 0.0 (0.0-0.2) K/mcL Sodium 116 L* (136-145) mEq/L Potassium 3.3 L (3.5-5.1) mEq/L Chloride 85 L (98-107) mEq/L Carbon Dioxide 24 (23-29) mEq/L BUN 10 (8-23) mg/dL Creatinine 0.49 L (0.60-1.20) mg/dL Est GFR ( Amer) > 60 (> 60) Est GFR (Non-Af Amer) > 60 (> 60) BUN/Creatinine Ratio 20 (6-26) Glucose 163 H (70-105) mg/dL Calculated Osmolality 245 L (280-300) Calcium 8.6 (8.6-10.3) mg/dL Total Bilirubin 0.7 (0.3-1.0) mg/dL Direct Bilirubin 0.1 (0.0-0.2) mg/dL Indirect Bilirubin 0.6 (0.0-1.2) mg/dL AST 15 (13-39) Units/L ALT 11 (7-52) Units/L Alkaline Phosphatase 43 (34-104) Units/L Serum Total Protein 6.0 L (6.4-8.9) g/dL Albumin 4.0 (3.5-5.7) g/dL Globulin 2.0 L (2.4-3.5) g/dL Albumin/Globulin Ratio 2.0 (1.1-2.2) Lipase 16 (11-82) Units/L Urine Color Yellow (Yellow) Urine Clarity Cloudy A (Clear) Urine pH 7.0 (5.0-8.0) pH Units Ur Specific [place] 1.016 (1.010-1.025) Urine Protein 30 H (Neg-Trace) mg/dL Urine Glucose (UA) 100 H (Normal) mg/dL Urine Ketones Negative (Negative) mg/dL Urine Blood Large H (Negative) Urine Nitrite Negative (Negative) Urine Bilirubin Negative (Negative) Urine Urobilinogen Normal (Normal) mg/dL Ur Leukocyte Esterase Moderate H (Negative) Urine Microscopic RBC TNTC H (0-3) per hpf Urine Microscopic WBC 5-15 H (0-3) per hpf Ur Squamous Epith Cells Many H (None-Few) per lpf Urine Bacteria None Seen (None-Few) per hpf Hyaline Casts None Seen (None-Few) per lpf Ur Culture Indicated? NO. A (NO) - Radiology Data Radiology results reviewed: Yes I reviewed the patient's radiology results. KUB X-Ray 07/24/18 22:23 IMPRESSION: Left ureteral stent is unchanged in position. D/ / Helder River MD / Helder River MD Interpreting Provider: Helder River MD - EKG Data EKG #1 EKG attestation: Yes I reviewed and interpreted this EKG. EKG results narrative: EKG shows a normal sinus rhythm with ventricular rate is 75. No acute ST segment elevation or depression. No arrhythmia or ectopy. Normal EKG. Attestation Statement - Attestation Attestation: I, Ismael Walker MD, personally evaluated this patient and discussed their management with the resident physician. I reviewed the resident's note and agree with the documented findings, medical decision making, and plan of care. 73-year-old female presents to the emergency department by EMS with a complaint of nausea and vomiting and epigastric pain for about 24 hours prior to arrival. Patient states symptoms started after she took some prednisone last evening. He states that she has had similar reactions to prednisone in the past. Patient has multiple drug allergies. She denies any melena, hematemesis, or hematochezia. She has developed some diarrhea this evening. No dysuria or gross hematuria. She does have a stent in her left ureter due to obstruction by a blood vessel. She also complains of some right flank pain. On examination patient is a well-developed well-nourished well-appearing elderly female in no acute distress. She is alert and oriented 3. No cyanosis or diaphoresis. Patient seems somewhat anxious and talks continuously. Breath sounds are clear and equal bilaterally. Heart regular rate and rhythm. Abdomen is soft and nontender with normal bowel sounds. No CVA tenderness. No palpable organomegaly or masses. No tympany or distention. Labs reviewed. Sodium 116. The hospitalist, Dr. Wright, was consulted and accepted admission of the patient.
[2018-07-25] MEDS ORDERED: Potassium Chloride Elixir 20 MEQ/15 ML UDC PO ONE (01:05)
[2018-07-25] MEDS ORDERED: Naloxone 0.4 MG/ML INJ IVP PRN ×2 (01:56→06:49)
--- NOTE | 2018-07-25 02:20 | Internal Med History&Physical ---
<Ra Carrington - Last Filed: 07/25/18 02:44> Date of Encounter: 07/25/18 Time of Encounter: 02:16 Internal Medicine - H&P: HPI Chief complaint: Nausea vomiting Admitted From: Home Plans for Post Hospital Care: Home History of present illness: Ms. 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 Patient states that today she underwent imaging for her lung cancer to be set up for radiation at the [facility] in [place]. She was given prednisone 3 doses to take in the last 24 hours as she is allergic to IV dye. She reports she gets very nauseous and vomits after taking prednisone. She had multiple bouts of vomiting after 3 PM and reports she filled up a part of the bucket. She also reports a poor diet in the last 24 hours secondary to her nausea. She also states she drinks 12 for large glasses of water every day because he urologist I told her as she has had left ureteral stent placement for left hydronephrosis. She also reports some left upper quadrant abdominal pain along with this nausea and vomiting. Reports his abdominal pain is aching, intermittent, worsens with food and prednisone. She denies dysuria, hematuria, flank pain, hematochezia, melena, hematemesis, fever , chills, sick contacts, confusion, seizures, syncope, double vision, headache. Past Med Surg Social Fam HX - Past Medical History Medical history: CVA, diabetes, hypertension, other Additional medical history: CVA 09/2004 Psychiatric history: anxiety - Past Surgical History Surgical History: appendectomy, hysterectomy Additional surgical history: tumor removed from left breast - Social History Smoking Status: Never smoker Smokeless Tobacco Status: No Alcohol use: none Drug use: none - Family History Mother Family Member Ethnicity: Non- Living Status: Hx Family Cardiac Disorders: Yes (HTN) Hx Family Respiratory Disorders: No Hx Family Cancer: No Hx Family GI Disorders: No Hx Family Endocrine Disorder: No Hx Family Neuromuscular Disorders: No Hx Family Neurologic Disorders: No Hx Family HEENT Disorders: No Hx Family Autoimmune Disorders: No Father Family Member Ethnicity: Non- Living Status: Hx Family Cardiac Disorders: Yes ([place]) Hx Family Endocrine Disorder: Yes (DM) Brother Family Member Ethnicity: Non- Living Status: Hx Family Cardiac Disorders: Yes (HTN) Hx Family Cancer: Yes Hx Family Endocrine Disorder: Yes (DM) Sister Family Member Ethnicity: Non- Living Status: Hx Family Cardiac Disorders: Yes (CAD, HTN) Hx Family Cancer: Yes (Ovarian) Hx Family Endocrine Disorder: Yes (DM) Internal Medicine - H&P: Meds Aspirin 81 mg PO DAILY 02/04/17 [History] LORazepam [Ativan] 0.5 - 1 mg PO DAILY PRN 02/04/17 [History] Levothyroxine [Synthroid] 88 mcg PO DAILY 02/04/17 [History] Losartan Potassium [Cozaar] 50 mg PO BID 02/04/17 [History] Glucosamn/Condroitn/C/Mn/[place] [[facility] Glucosamine Chondroitin Tb] 1 tab PO DAILY 03/31/17 [History] amLODIPine [Norvasc] 2.5 tab PO BID 02/24/18 [History] Calcium Carbonate/Vitamin D3 [Calcium 600-Vit D3 200 Tablet] 2 tab PO DAILY [History] Cyclosporine [Restasis Multidose] 1 drop OP BID 03/03/18 [History] Loratadine [Claritin] 10 mg PO DAILY 03/03/18 [History] Zoledronic Acid (Reclast) [Reclast Premix 5 MG/100 ML] 5 mg IV [id number] [History] 3 Allergy/AdvReac Type Severity Reaction Status Date / Time fexofenadine Allergy See Verified 03/26/18 11:52 [From Angie-D 12 Hour] Comments meperidine [From Demerol] Allergy Hives Verified 03/26/18 11:52 metoprolol Allergy Rash Verified 03/26/18 11:52 Nickel Allergy Rash Verified 03/26/18 11:52 nitrofurantoin Allergy Hives Verified 03/26/18 11:52 Prilocaine Allergy Hypotension Verified 03/26/18 11:52 pseudoephedrine Allergy See Verified 03/26/18 11:52 [From Angie-D 12 Hour] Comments telmisartan [From Micardis] Allergy Hypertensio Verified 03/26/18 11:52 n acetaminophen [From Tylenol] AdvReac Dizziness Verified 03/26/18 11:52 ampicillin AdvReac Dizziness Verified 03/29/18 07:27 bupivacaine [From Marcaine] AdvReac Hypotension Verified 03/29/18 07:27 cephalexin AdvReac Nausea Verified 03/29/18 07:27 ciprofloxacin [From Cipro] AdvReac Nausea Verified 03/29/18 07:27 clarithromycin [From Biaxin] AdvReac Nausea Verified 03/29/18 07:27 codeine AdvReac Nausea Verified 03/29/18 07:27 Erythromycin Base AdvReac Nausea Verified 03/29/18 07:27 esomeprazole [From Nexium] AdvReac Nausea Verified 03/29/18 07:27 estrogens, conjugated AdvReac Gastrointestinal Verified 03/29/18 07:27 [From Premarin] Upset Iodinated Contrast- Oral and AdvReac Nausea Verified 03/29/18 07:27 IV Dye [Iodinated Contrast Media - Oral and] iodine AdvReac Nausea Verified 03/29/18 07:27 lidocaine AdvReac Hypotension Verified 03/29/18 07:27 lisinopril AdvReac Hypertensio Verified 03/29/18 07:27 n metformin AdvReac Dizziness Verified 03/29/18 07:27 moxifloxacin [From Avelox] AdvReac Nausea Verified 03/29/18 07:27 Oxycodone AdvReac Dizziness Verified 03/29/18 07:27 Paroxetine [From Paxil] AdvReac Nausea Verified 03/29/18 07:27 Penicillins AdvReac Dizziness Verified 03/29/18 07:27 prochlorperazine AdvReac Blurry Verified 03/29/18 07:27 [From Compazine] Vision Sulfa (Sulfonamide AdvReac Nausea Verified 03/29/18 07:27 Antibiotics) sulfamethoxazole AdvReac Nausea Verified 03/29/18 07:27 [From Bactrim] Tetracycline AdvReac Nausea Verified 03/29/18 07:27 trimethoprim [From Bactrim] AdvReac Nausea Verified 03/29/18 07:27 All Systems PM: A 10-system review of systems was performed and is negative for pertinent findings except as documented above in the HPI. Review of systems: Constitutional: Denies fever, chills HEENT: Denies headache, trauma, blurry vision, eye discharge, ear pain, ear discharge neck pain, sore throat, rhinorrhea Heart: Denies chest pain palpitations, LE edema Lungs: Denies shortness of breath cough Abdomen: Reports abdominal pain, nausea, vomiting. Denies diarrhea MSK: Denies back pain, falls, joint pain Kidney: Denies dysuria, hematuria Skin: Denies rash, ulcers Neuro: Denies numbness and tingling Psych: denies axniety, depression - Constitutional Vitals: Temp Pulse Resp BP Pulse Ox 97.9 F 74 15 151/60 96 07/25/18 00:55 07/25/18 00:55 07/25/18 00:55 07/25/18 00:55 07/25/18 00:55 Exam: General: pleasant, without distress HEENT: Head atraumatic, normocephalic, EOMI, PERRL, absent ear discharge or trauma, Moist Mucous Membranes, uvula midline Neck: nontender to palpation, absent lymphadenopathy, Cardiovascualr: Regular rate and rhythm with no murmur, absent gallops or rubs, 1+ pedal edema pedal edema, radial pulses 2 out of 4 Lungs: Clear to auscultation bilaterally, not in respiratory distress Abdomen: Soft nontender, nondistended positive bowel sounds, absent hepatomegaly Skin: warm and dry, absent rash, absent open wounds and nodules MSK: absent clubbing, cyanosis, joints without swelling Neuro: Cranial nerves II through XII intact, UE and LE sensation equal bilaterally, UE and LEstrength 5/5, alert oriented 3, Gait intact, Psych: good insight and judgment, calm Internal Med - H&P Results - Labs CBC & Chem 7: 07/24/18 20:43 07/25/18 01:23 Labs: BMP 07/25/18 01:23 Sodium 126 L D - Assessment and plan (1) Hyponatremia Current Visit: Yes Status: Acute Assessment and plan: hypervolemic hyponatremia Patient has 1+ b/l LE edema reports poor diet in last 24/h with N/V 2nd to prednisone at it makes her stomach upset sodium is 116 patient received 2L NS in ER repeat sodium 126 patient is alert oriened x3 without double vision, not confused called nephrology for further recommendations. Patient was given 250cc of D5 in water repeat sodium 2Qh, urine studies ordered. plan: NPO. goal for sodium correction is 10meq/24 hours. (2) Neuroendocrine cancer Current Visit: Yes Status: Chronic Assessment and plan: Patient has a stage II neuroendocrine lung cancer Currently she is being set up to receive radiation treatment Follow-up with oncology outpatient. (3) Thyroid disease Current Visit: Yes Status: Chronic Assessment and plan: Continue levothyroxine (4) HTN (hypertension) Current Visit: Yes Status: Chronic Assessment and plan: Controlled Continue losartan and amlodipine Qualifiers: Hypertension type: essential hypertension Qualified Code(s): I10 - Essential (primary) hypertension (5) Leukocytosis Current Visit: Yes Status: Acute Assessment and plan: Patient a WBC of 13.8 Afebrile, not tachycardic Urinalysis negative for infection Likely secondary to stress from nausea vomiting KUB within normal limits Continue monitor. Qualifiers: Leukocytosis type: unspecified Qualified Code(s): D72.829 - Elevated white blood cell count, unspecified - Time Spent With Patient Total time spent is greater than 50% in coordination of care (as documented) at patient's floor/unit and/or counseling patient: <Jeanette Moss - Last Filed: 07/25/18 08:00> Date of Encounter: 07/25/18 Internal Medicine - H&P: HPI History of present illness: Ms. Carranza is a 73 year old female All Systems PM: A 10-system review of systems was performed and is negative for pertinent findings except as documented above in the HPI. - Constitutional Vitals: Temp Pulse Resp BP Pulse Ox 98.0 F 63 14 138/72 97 07/25/18 06:37 07/25/18 06:37 07/25/18 06:37 07/25/18 06:37 07/25/18 06:37 Internal Med - H&P Results - Labs CBC & Chem 7: 07/25/18 03:17 07/25/18 05:18 Labs: Short CBC 07/25/18 Range/Units 03:17 WBC 14.7 H (4.3-11.1) K/mcL Hgb 12.3 (11.5-15.4) g/dL Hct 34.8 L (35.3-44.9) % Plt Count 195 (140-400) K/mcL Neutrophils # 11.1 H (1.6-8.9) K/mcL BMP 07/25/18 07/25/1807/25/18 01:23 03:17 05:18 Sodium 126 L D 126 L 129 L Potassium 3.8 Chloride 99 Carbon Dioxide 22 L BUN 7 L Creatinine 0.49 L Glucose 197 H Calcium 8.1 L - Assessment and plan (1) HTN (hypertension) Current Visit: Yes Status: Chronic Qualifiers: Hypertension type: essential hypertension Qualified Code(s): I10 - Essential (primary) hypertension (2) Hyponatremia Current Visit: Yes Status: Acute (3) Thyroid disease Current Visit: Yes Status: Chronic (4) Neuroendocrine cancer Current Visit: Yes Status: Chronic (5) Leukocytosis Current Visit: Yes Status: Acute Qualifiers: Leukocytosis type: unspecified Qualified Code(s): D72.829 - Elevated white blood cell count, unspecified - Time Spent With Patient Total time spent is greater than 50% in coordination of care (as documented) at patient's floor/unit and/or counseling patient: - Attending Attestation Patient seen and examined. Case discussed with resident. Nephrology was contacted for aid in correction of patient's significant hyponatremia though she is asymptomatic. We will correct per nephrology's recommendations.
[2018-07-25] MEDS: D5% in Water 250 ML IVC SCH ×3 (02:22→09:13)
[2018-07-25 03:32] LABS: Basophils % 0.1 %; Eosinophils % 0.1 %; Hematocrit 34.8 % (35.3-44.9); Hemoglobin 12.3 g/dL (11.5-15.4); Immature Granulocytes % 0.6 % (0-4); Lymphocytes # 2.1 K/mcL (0.6-4.6); Lymphocytes % 14.2 %; Mean Corpuscular HGB Conc 35.3 g/dL (31.6-35.5); Mean Corpuscular Hemoglobin 30.3 pg (28.0-33.3); Mean Corpuscular Volume 85.7 fL (83.0-100.0); Mean Platelet Volume 8.9 fL (9.4-12.4); Monocytes # 1.4 K/mcL (0.0-1.3); Monocytes % 9.7 %; Neutrophils # 11.1 K/mcL (1.6-8.9); Platelet Count 195 K/mcL (140-400); Red Blood Count 4.06 M/mcL (3.82-4.97); Red Cell Distribution Width 12.1 % (11.5-14.5); Segmented Neutrophils % 75.3 %
[2018-07-25 03:45] LABS: BUN/Creatinine Ratio 14 (6-26); Blood Urea Nitrogen 7 mg/dL (8-23); Calcium 8.1 mg/dL (8.6-10.3); Carbon Dioxide 22 mEq/L (23-29); Chloride 99 mEq/L (98-107); Glucose 197 mg/dL (70-105); Osmolality,Calculated 265 (280-300); Potassium 3.8 mEq/L (3.5-5.1); Sodium 126 mEq/L (136-145); eGFR For Non-African Americans > 60 (> 60)
[2018-07-25] MEDS: *HR* Heparin 5,000 UNIT/ML VIAL SQ SCH ×3 (05:37→21:37)
[2018-07-25] MEDS ORDERED: D5% in Water 1,000 ML IVC SCH (08:30)
[2018-07-25] MEDS: Aspirin 81 MG TAB.CHEW PO SCH (09:22)
[2018-07-25] MEDS: amLODIPine 5 MG TABLET PO SCH ×2 (09:22→21:36)
[2018-07-25] MEDS: Famotidine 20 MG TABLET PO SCH ×2 (09:22→21:36)
--- NOTE | 2018-07-25 09:31 | Nephrology Consult Note ---
Date of Encounter: 07/25/18 Time of Encounter: 09:31 Assessment and Plan (1) Hyponatremia Current Visit: Yes Status: Acute The patient has multifactorial hyponatremia related to decreased solid intake, nausea with vomiting, and consuming hypotonic fluids. Her sodium is improved with normal saline. I think the goal for today should be for her sodium to be between 125 and 128. On the D5 has been increased, but she may need DDAVP if we cannot get her serum sodium to decrease. I will liberalize her diet. And we will check labs in a few hours and on a regular basis to see due to serum sodium reaches goal. History of Present Illness - Reason for Consult Consult date: 07/25/18 hyponatremia - Chief Complaint hyponatremia - History of Present Illness Ms. Carranza is a 73-year-old woman with multiple medical problems who presents today hospital with nausea vomiting and found to have severe hyponatremia. She was treated in the emergency room with 2 L of normal saline and her sodium has quickly increased. Nephrology was consult for assistance with management of her hyponatremia. At the time my evaluation the patient denies nausea vomiting , she denies chest pain, she denies shortness of breath, she denies diarrhea, and states that she feels back to her usual state of health. She reports that she did have significant nausea and vomiting the day prior to coming in and had not been eating as she normally does. Past Med Surg Social Fam HX - Past Medical History Medical history: CVA, diabetes, hypertension, other Additional medical history: CVA 09/2004 Psychiatric history: anxiety - Past Surgical History Surgical History: appendectomy, hysterectomy Additional surgical history: tumor removed from left breast - Social History Smoking Status: Never smoker Smokeless Tobacco Status: No Alcohol use: none Drug use: none - Family History Mother Family Member Ethnicity: Non- Living Status: Hx Family Cardiac Disorders: Yes (HTN) Hx Family Respiratory Disorders: No Hx Family Cancer: No Hx Family GI Disorders: No Hx Family Endocrine Disorder: No Hx Family Neuromuscular Disorders: No Hx Family Neurologic Disorders: No Hx Family HEENT Disorders: No Hx Family Autoimmune Disorders: No Father Family Member Ethnicity: Non- Living Status: Hx Family Cardiac Disorders: Yes ([place]) Hx Family Endocrine Disorder: Yes (DM) Brother Family Member Ethnicity: Non- Living Status: Hx Family Cardiac Disorders: Yes (HTN) Hx Family Cancer: Yes Hx Family Endocrine Disorder: Yes (DM) Sister Family Member Ethnicity: Non- Living Status: Hx Family Cardiac Disorders: Yes (CAD, HTN) Hx Family Cancer: Yes (Ovarian) Hx Family Endocrine Disorder: Yes (DM) Medications and Allergies Aspirin 81 mg PO DAILY 02/04/17 [History] LORazepam [Ativan] 0.5 - 1 mg PO DAILY PRN 02/04/17 [History] Levothyroxine [Synthroid] 88 mcg PO DAILY 02/04/17 [History] Losartan Potassium [Cozaar] 50 mg PO BID 02/04/17 [History] Glucosamn/Condroitn/C/Mn/[place] [[facility] Glucosamine Chondroitin Tb] 1 tab PO DAILY 03/31/17 [History] amLODIPine [Norvasc] 2.5 tab PO BID 02/24/18 [History] Calcium Carbonate/Vitamin D3 [Calcium 600-Vit D3 200 Tablet] 2 tab PO DAILY [History] Cyclosporine [Restasis Multidose] 1 drop OP BID 03/03/18 [History] Loratadine [Claritin] 10 mg PO DAILY 03/03/18 [History] Zoledronic Acid (Reclast) [Reclast Premix 5 MG/100 ML] 5 mg IV [id number] [History] 3 Allergy/AdvReac Type Severity Reaction Status Date / Time fexofenadine Allergy See Verified 03/26/18 11:52 [From Angie-D 12 Hour] Comments meperidine [From Demerol] Allergy Hives Verified 03/26/18 11:52 metoprolol Allergy Rash Verified 03/26/18 11:52 Nickel Allergy Rash Verified 03/26/18 11:52 nitrofurantoin Allergy Hives Verified 03/26/18 11:52 Prilocaine Allergy Hypotension Verified 03/26/18 11:52 pseudoephedrine Allergy See Verified 03/26/18 11:52 [From Angie-D 12 Hour] Comments telmisartan [From Micardis] Allergy Hypertensio Verified 03/26/18 11:52 n acetaminophen [From Tylenol] AdvReac Dizziness Verified 03/26/18 11:52 ampicillin AdvReac Dizziness Verified 03/29/18 07:27 bupivacaine [From Marcaine] AdvReac Hypotension Verified 03/29/18 07:27 cephalexin AdvReac Nausea Verified 03/29/18 07:27 ciprofloxacin [From Cipro] AdvReac Nausea Verified 03/29/18 07:27 clarithromycin [From Biaxin] AdvReac Nausea Verified 03/29/18 07:27 codeine AdvReac Nausea Verified 03/29/18 07:27 Erythromycin Base AdvReac Nausea Verified 03/29/18 07:27 esomeprazole [From Nexium] AdvReac Nausea Verified 03/29/18 07:27 estrogens, conjugated AdvReac Gastrointestinal Verified 03/29/18 07:27 [From Premarin] Upset Iodinated Contrast- Oral and AdvReac Nausea Verified 03/29/18 07:27 IV Dye [Iodinated Contrast Media - Oral and] iodine AdvReac Nausea Verified 03/29/18 07:27 lidocaine AdvReac Hypotension Verified 03/29/18 07:27 lisinopril AdvReac Hypertensio Verified 03/29/18 07:27 n metformin AdvReac Dizziness Verified 03/29/18 07:27 moxifloxacin [From Avelox] AdvReac Nausea Verified 03/29/18 07:27 Oxycodone AdvReac Dizziness Verified 03/29/18 07:27 Paroxetine [From Paxil] AdvReac Nausea Verified 03/29/18 07:27 Penicillins AdvReac Dizziness Verified 03/29/18 07:27 prochlorperazine AdvReac Blurry Verified 03/29/18 07:27 [From Compazine] Vision Sulfa (Sulfonamide AdvReac Nausea Verified 03/29/18 07:27 Antibiotics) sulfamethoxazole AdvReac Nausea Verified 03/29/18 07:27 [From Bactrim] Tetracycline AdvReac Nausea Verified 03/29/18 07:27 trimethoprim [From Bactrim] AdvReac Nausea Verified 03/29/18 07:27 Review of Systems All Systems: reviewed and no additional remarkable complaints except as stated ( As documented in the history of present illness) Exam - Vital Signs Vital signs: Initial Vital Signs Temp Pulse Resp BP Pulse Ox 97.6 F 81 18 157/77 98 07/24/18 20:57 07/24/18 20:57 07/24/18 20:57 07/24/18 20:57 07/24/18 20:57 Vital Signs - Last 8 Hours Temp Pulse Resp BP Pulse Ox 07/25/18 06:37 98.0 F 63 14 138/72 97 07/25/18 04:17 98.2 F 70 14 122/66 97 Intake and Output 07/24/18 07/25/18 07/25/18 23:59 07:59 15:59 Intake Total 1250 / 1250 250 / 250 Output Total 1700 / 1700 Balance -450 / -450 250 / 250 Intake: IV Fluids 1250 / 1250 250 / 250 0.9 % Sodium Chloride 1,000 ML 1000 / 1000 @ 999 mls/hr IVC .Q1H1M ONE Rx# :[id number] Dextrose 5% 250 ML @ 100 mls/hr 250 / 250 250 / 250 IVC .Q2H30M URSULA Rx#:[id number] Oral 0 / 0 Output: Urine 1700 / 1700 Other: # Voids 1 # Bowel Movements 0 Weight 60.1 kg Blood Glucose* 143 Patient Weight 07/25/18 23:59 Weight 60.1 kg - General Appearance General appearance: well-developed, well-nourished EENT: ATNC Neck: supple Respiratory: clear Cardiology: no edema, regular rate Gastrointestinal: no tenderness Integumentary: warm and dry Neurologic: alert and oriented x3 Musculoskeletal: no cyanosis Psychiatric: mood/affect appropriate Results - Lab Results 07/25/18 03:17 07/25/18 08:51 Most recent lab results Calcium 8.1 mg/dL (8.6-10.3) L 07/25/18 03:17 Consult Discharge Plan - Plan Referrals: NONE,PCP [Primary Care Provider] -
[2018-07-25] MEDS: D5% in Water 1,000 ML IVC SCH ×3 (09:43→22:01)
--- NOTE | 2018-07-25 12:01 | Event Note ---
Date of Encounter: 07/25/18 Time of Encounter: 11:30 Ms Carranza was placed in observation earlier today for hyponatremia. She is currently on IV D5W with frequent sodium check. She is asymptomatic at this time. No nausea and vomiting. Exam Alert and comfortable Mucus membranes dry Plan as per H&P and nephrology.
[2018-07-25] MEDS ORDERED: *HR* Dextrose 50 % in Water (Syg) 50 ML SYRINGE IVP PRN (14:40)
[2018-07-25] MEDS ORDERED: Dextrose Gel 15 GM/37.5 ML TUBE PO PRN ×2 (14:40)
[2018-07-25] MEDS: Insulin LISPRO 300 UNITS/3 ML VIAL SQ SCH ×2 (16:24→21:25)
[2018-07-26] MEDS: *HR* Heparin 5,000 UNIT/ML VIAL SQ SCH ×3 (06:16→20:51)
[2018-07-26] MEDS: D5% in Water 1,000 ML IVC SCH ×3 (06:51→15:35)
[2018-07-26] MEDS: Aspirin 81 MG TAB.CHEW PO SCH (08:25)
[2018-07-26] MEDS: amLODIPine 5 MG TABLET PO SCH ×2 (08:25→20:50)
[2018-07-26] MEDS: Famotidine 20 MG TABLET PO SCH ×3 (08:25→16:18)
[2018-07-26] MEDS: Insulin LISPRO 300 UNITS/3 ML VIAL SQ SCH ×4 (08:26→20:46)
--- NOTE | 2018-07-26 08:59 | Nephrology Progress Note ---
Date of Encounter: 07/26/18 Time of Encounter: 08:59 - Assessment and Plan (1) Hyponatremia Current Visit: Yes Status: Acute The patient has multifactorial hyponatremia related to decreased solid intake, nausea with vomiting, and consuming hypotonic fluids. Her sodium is improved with normal saline. I think the goal for today should be for her sodium to be between low 130s I will liberalize her diet. Check sodium frequently. Will allow sodium level to rise. (2) Abdominal pain Current Visit: Yes Status: Acute Per primary team. Consider GI cocktail or carafate. Qualifiers: Abdominal location: epigastric Qualified Code(s): R10.13 - Epigastric pain Subjective Principal diagnosis: Hyponatremia Interval history: Patient seen and evaluated. Patient complains of left upper quadrant discomfort. She denies nausea. She states that she gets abdominal pain with eating. She has a number of chronic complaints. Objective - Vital Signs Vital signs: Vital Signs Temp Pulse Resp BP Pulse Ox 07/26/18 06:38 97.8 F 68 14 164/74 98 07/26/18 03:24 98.5 F 68 14 169/69 99 07/25/18 19:22 97.9 F 72 15 142/65 96 07/25/18 14:49 97.7 F 63 14 134/69 96 07/25/18 10:59 97.8 F 63 15 148/66 97 Intake and Output 07/25/18 07/26/18 07/26/18 23:59 07:59 15:59 Intake Total 1000 / 1000 1000 / 1000 240 / 240 Output Total 3600 / 3600 3100 / 3100 500 / 500 Balance -2600 / -2600 -2100 / -2100 -260 / -260 Intake: IV Fluids 1000 / 1000 1000 / 1000 Dextrose 5% 1,000 ML @ 250 mls/ 1000 / 1000 1000 / 1000 hr IVC .Q4H URSULA Rx#:[id number] Oral 0 / 0 0 / 0 240 / 240 Output: Urine 3600 / 3600 3100 / 3100 500 / 500 Other: Meal Breakfast Percent of Meal Consumed 90% Blood Glucose* 119 172 178 - General Appearance General appearance: Present: well-developed, well-nourished EENT: Present: ATNC Neck: Present: supple Additional Comments: respirations unlabored Cardiology: Present: regular rate Integumentary: Present: warm and dry Neurologic: Present: alert and oriented x3 Psychiatric: Present: mood/affect appropriate - Lab 07/26/18 08:44 07/26/18 17:15 Most recent lab results Calcium 8.1 mg/dL (8.6-10.3) L 07/25/18 03:17 Consult Discharge Plan - Plan Referrals: NONE,PCP [Primary Care Provider] -
[2018-07-26 09:04] LABS: Hematocrit 42.9 % (35.3-44.9); Mean Corpuscular HGB Conc 34.7 g/dL (31.6-35.5); Mean Corpuscular Hemoglobin 30.7 pg (28.0-33.3); Mean Corpuscular Volume 88.3 fL (83.0-100.0); Mean Platelet Volume 9.1 fL (9.4-12.4); Platelet Count 226 K/mcL (140-400); Red Blood Count 4.86 M/mcL (3.82-4.97); Red Cell Distribution Width 12.5 % (11.5-14.5)
[2018-07-26 09:06] LABS: Hemoglobin 14.9 g/dL (11.5-15.4)
[2018-07-26 09:29] LABS: BUN/Creatinine Ratio 12 (6-26); Blood Urea Nitrogen 7 mg/dL (8-23); Calcium 9.2 mg/dL (8.6-10.3); Carbon Dioxide 30 mEq/L (23-29); Chloride 95 mEq/L (98-107); Glucose 162 mg/dL (70-105); Magnesium 2.1 mg/dL (1.6-2.6); Osmolality,Calculated 272 (280-300); Potassium 3.5 mEq/L (3.5-5.1); Sodium 130 mEq/L (136-145); eGFR For Non-African Americans > 60 (> 60)
[2018-07-26] MEDS ORDERED: DEXTROSE 5 % IN WATER 50 ML PGGYBK.PRT IV SCH (10:33)
[2018-07-26] MEDS ORDERED: Loratadine 10 MG TABLET PO PRN (10:49)
[2018-07-26] MEDS: (Cyclosporine [Restasis Multidose] 1 DROP) OP SCH ×2 (11:12→20:51)
[2018-07-26] MEDS: Mag Hydrox/Al Hydrox/Simeth 30 ML UDC PO PRN ×2 (11:19→15:37)
[2018-07-26] MEDS: valACYclovir 500 MG TABLET PO SCH (12:57)
[2018-07-26] MEDS: *HR* LORazepam 1 MG TABLET PO PRN ×2 (15:37→15:51)
[2018-07-26] MEDS ORDERED: *HR* LORazepam 1 MG TABLET PO PRN (15:49)
--- NOTE | 2018-07-26 16:07 | Internal Med Progress Note ---
Hospitalist Progress Note - Encounter Date of Encounter: 07/26/18 Time of Encounter: 12:15 - Subjective Interval History: Ms Carranza is currently admitted for hyponatremia and nausea and vomiting. She remains moderate to high risk due to potential for worsening clinical status. Ms Carranza is worried about her meds. She has had some GI issue. No diarrhea at this time. No urinary symptoms. - Exam Vitals: Temp Pulse Resp BP Pulse Ox 98.2 F 78 14 132/75 95 07/26/18 15:00 07/26/18 15:00 07/26/18 15:00 07/26/18 15:00 07/26/18 15:00 Exam: General: Alert and oriented. Comfortable at this time. Skin: Normal color, no rash, no lesions. H: Normocephalic. EENT: EOMI, pupils equal, reactive. Mucus membranes moist. No lesion. Cardiovascular: Normal S1 & S2, no rubs, murmurs or gallops. No JVD. Pulse regular. Lungs: Normal breath sounds, no wheezes or crackles. Abdomen: Soft, non-tender, no rigidity. Normal bowel sounds. Extremities: No deformity, no edema or tenderness, no joint swelling or clubbing. Neurological: Normal cognition and motor skills. Pulses: Carotid and radial pulses normal +2. Rest of the physical exam is non contributory - Assessment and Plan (1) GERD (gastroesophageal reflux disease) Current Visit: Yes Status: Chronic Assessment and Plan: Cannot take Nexium. Does not take [id number]. Add Carafate. (2) Hyponatremia Current Visit: Yes Status: Acute Assessment and Plan: Appreciate management by nephrology. On IV D5W at this time. (3) Diabetes Current Visit: No Status: Chronic Assessment and Plan: Monitor blood sugars. Usually diet controlled but higher with D5 infusion. (4) HTN (hypertension) Current Visit: Yes Status: Chronic Assessment and Plan: Blood pressure higher this AM but improved with meds. Continue as is for now. (5) Neuroendocrine cancer Current Visit: Yes Status: Chronic Assessment and Plan: Patient has a stage II neuroendocrine lung cancer Currently she is being set up to receive radiation treatment Follow-up with oncology outpatient. (6) Leukocytosis Current Visit: Yes Status: Resolved (7) Hypothyroidism Current Visit: Yes Status: Chronic Assessment and Plan: On Synthyroid. - Time Spent with Patient Total time spent is greater than 50% in coordination of care (as documented) at patient's floor/unit and/or counseling patient: Internal Medicine: Result - Labs CBC & Chem 7: 07/26/18 08:44 07/26/18 08:44 Labs: Short CBC 07/26/18 Range/Units 08:44 WBC 8.4 (4.3-11.1) K/mcL Hgb 14.9 D (11.5-15.4) g/dL Hct 42.9 (35.3-44.9) % Plt Count 226 (140-400) K/mcL BMP 07/26/18 08:44 Sodium 130 L Potassium 3.5 Chloride 95 L Carbon Dioxide 30 H BUN 7 L Creatinine 0.57 L Glucose 162 H Calcium 9.2 Consult Discharge Plan - Plan Referrals: NONE,PCP [Primary Care Provider] - (1) GERD (gastroesophageal reflux disease) Qualifiers: Esophagitis presence: esophagitis presence not specified Qualified Code(s): K21.9 - Gastro-esophageal reflux disease without esophagitis (3) Diabetes Qualifiers: Diabetes mellitus type: type 2 Diabetes mellitus skilled nursing insulin use: without intermodal dispatcher use Diabetes mellitus complication status: without complication Qualified Code(s): E11.9 - Type 2 diabetes mellitus without complications (4) HTN (hypertension) Qualifiers: Hypertension type: essential hypertension Qualified Code(s): I10 - Essential (primary) hypertension (6) Leukocytosis Qualifiers: Leukocytosis type: unspecified Qualified Code(s): D72.829 - Elevated white blood cell count, unspecified (7) Hypothyroidism Qualifiers: Hypothyroidism type: acquired Qualified Code(s): E03.9 - Hypothyroidism, unspecified
[2018-07-26] MEDS: Sucralfate 1 GM TABLET PO SCH (16:53)
[2018-07-27] MEDS: *HR* Heparin 5,000 UNIT/ML VIAL SQ SCH ×2 (04:56→12:08)
[2018-07-27 05:12] LABS: Hematocrit 42.4 % (35.3-44.9); Hemoglobin 14.5 g/dL (11.5-15.4); Mean Corpuscular HGB Conc 34.2 g/dL (31.6-35.5); Mean Corpuscular Hemoglobin 29.4 pg (28.0-33.3); Mean Corpuscular Volume 85.8 fL (83.0-100.0); Mean Platelet Volume 9.2 fL (9.4-12.4); Platelet Count 238 K/mcL (140-400); Red Blood Count 4.94 M/mcL (3.82-4.97); Red Cell Distribution Width 12.6 % (11.5-14.5)
[2018-07-27 05:30] LABS: BUN/Creatinine Ratio 14 (6-26); Blood Urea Nitrogen 10 mg/dL (8-23); Calcium 9.4 mg/dL (8.6-10.3); Carbon Dioxide 29 mEq/L (23-29); Chloride 96 mEq/L (98-107); Glucose 125 mg/dL (70-105); Magnesium 2.3 mg/dL (1.6-2.6); Osmolality,Calculated 273 (280-300); Potassium 3.7 mEq/L (3.5-5.1); Sodium 131 mEq/L (136-145); eGFR For Non-African Americans > 60 (> 60)
[2018-07-27] MEDS: valACYclovir 500 MG TABLET PO SCH (07:59)
[2018-07-27] MEDS: Sucralfate 1 GM TABLET PO SCH ×2 (07:59→16:08)
[2018-07-27] MEDS: amLODIPine 5 MG TABLET PO SCH (08:00)
[2018-07-27] MEDS: Insulin LISPRO 300 UNITS/3 ML VIAL SQ SCH ×3 (08:00→16:08)
[2018-07-27] MEDS: (Cyclosporine [Restasis Multidose] 1 DROP) OP SCH (08:01)
[2018-07-27] MEDS: Aspirin 81 MG TAB.CHEW PO SCH (08:01)
[2018-07-27 08:21] VITALS: BP 160/77
--- NOTE | 2018-07-27 11:52 | Discharge Summary ---
<David Gerardo - Last Filed: 07/27/18 16:32> Date of Encounter: 07/27/18 - Discharge Diagnosis (1) GERD (gastroesophageal reflux disease) Status: Chronic Qualifiers: Esophagitis presence: esophagitis presence not specified Qualified Code(s) : K21.9 - Gastro-esophageal reflux disease without esophagitis (2) Hyponatremia Status: Acute (3) Diabetes Priority: Secondary Status: Chronic Qualifiers: Diabetes mellitus type: type 2 Diabetes mellitus lobsterman insulin use: without halfway use Diabetes mellitus complication status: without complication Qualified Code(s): E11.9 - Type 2 diabetes mellitus without complications (4) HTN (hypertension) Status: Chronic Qualifiers: Hypertension type: essential hypertension Qualified Code(s): I10 - Essential (primary) hypertension (5) Neuroendocrine cancer Status: Chronic (6) Hypothyroidism Priority: Secondary Status: Chronic Qualifiers: Hypothyroidism type: acquired Qualified Code(s): E03.9 - Hypothyroidism, unspecified Hospital course: Ms. Carranza is a 73 year old female - Time Spent with Patient Total time spent providing and/or coordinating discharge services: 38min - Discharge Medications Prescriptions: Sucralfate [Carafate] 1 gm PO 0730,1630 #60 tablet Sucralfate [Carafate] 1 gm PO 0730,1630 #90 tablet Home Medications: Aspirin 81 mg PO DAILY 02/04/17 [History] LORazepam [Ativan] 0.5 - 1 mg PO DAILY PRN 02/04/17 [History] Levothyroxine [Synthroid] 88 mcg PO DAILY 02/04/17 [History] Losartan Potassium [Cozaar] 50 mg PO BID 02/04/17 [History] Glucosamn/[place]n/C/Mn/[place] [[facility] Glucosamine Chondroitin Tb] 0.5 - 1 tab PO DAILY 03/31/17 [History] amLODIPine [Norvasc] 2.5 tab PO BID 02/24/18 [History] Calcium Carbonate/Vitamin D3 [Calcium 600-Vit D3 200 Tablet] 2 tab PO DAILY [History] Cyclosporine [Restasis Multidose] 1 drop OP BID 03/03/18 [History] Loratadine [Claritin] 10 mg PO DAILY PRN 03/03/18 [History] Zoledronic Acid (Reclast) [Reclast Premix 5 MG/100 ML] 5 mg IV [id number] [History] Docusate [Colace] 100 - 200 mg PO DAILY PRN 07/25/18 [History] valACYclovir [Valtrex] 500 mg PO DAILY 07/25/18 [History] Sucralfate [Carafate] 1 gm PO 0730,1630 #60 tablet 07/27/18 [Rx] Sucralfate [Carafate] 1 gm PO 0730,1630 #90 tablet 07/27/18 [Rx] Allergies/Adverse Reactions: 3 Allergy/AdvReac Type Severity Reaction Status Date / Time fexofenadine Allergy See Verified 07/25/18 16:49 [From Angie-D 12 Hour] Comments meperidine [From Demerol] Allergy Hives Verified 07/25/18 16:49 metoprolol Allergy Rash Verified 07/25/18 16:49 Nickel Allergy Rash Verified 07/25/18 16:49 nitrofurantoin Allergy Hives Verified 07/25/18 16:49 Prilocaine Allergy Hypotension Verified 07/25/18 16:49 pseudoephedrine Allergy See Verified 07/25/18 16:49 [From Angie-D 12 Hour] Comments telmisartan [From Micardis] Allergy Hypertensio Verified 07/25/18 16:49 n acetaminophen [From Tylenol] AdvReac Dizziness Verified 07/25/18 16:49 ampicillin AdvReac Dizziness Verified 07/25/18 16:44 atorvastatin [From Lipitor] AdvReac Weakness Verified 07/25/18 16:50 bupivacaine [From Marcaine] AdvReac Hypotension Verified 07/25/18 16:44 cephalexin AdvReac Nausea Verified 07/25/18 16:44 ciprofloxacin [From Cipro] AdvReac Nausea Verified 07/25/18 16:44 clarithromycin [From Biaxin] AdvReac Nausea Verified 07/25/18 16:44 codeine AdvReac Nausea Verified 07/25/18 16:44 Erythromycin Base AdvReac Nausea Verified 07/25/18 16:44 esomeprazole [From Nexium] AdvReac Nausea Verified 07/25/18 16:44 estrogens, conjugated AdvReac Gastrointestinal Verified 07/25/18 16:44 [From Premarin] Upset Iodinated Contrast- Oral and AdvReac Nausea Verified 07/25/18 16:44 IV Dye [Iodinated Contrast Media - Oral and] iodine AdvReac Nausea Verified 07/25/18 16:44 lidocaine AdvReac Hypotension Verified 07/25/18 16:44 lisinopril AdvReac Hypertensio Verified 07/25/18 16:44 n metformin AdvReac Dizziness Verified 07/25/18 16:44 moxifloxacin [From Avelox] AdvReac Nausea Verified 07/25/18 16:44 Oxycodone AdvReac Dizziness Verified 07/25/18 16:44 Paroxetine [From Paxil] AdvReac Nausea Verified 07/25/18 16:44 Penicillins AdvReac Dizziness Verified 07/25/18 16:44 prochlorperazine AdvReac Blurry Verified 07/25/18 16:44 [From Compazine] Vision simvastatin [From Zocor] AdvReac Diarrhea Verified 07/25/18 16:50 Sulfa (Sulfonamide AdvReac Nausea Verified 07/25/18 16:44 Antibiotics) sulfamethoxazole AdvReac Nausea Verified 07/25/18 16:44 [From Bactrim] Tetracycline AdvReac Nausea Verified 07/25/18 16:44 trimethoprim [From Bactrim] AdvReac Nausea Verified 07/25/18 16:44 Date of admission: 07/26/18 08:10 Primary care physician: PCP NONE - Constitutional Vitals: Temp Pulse Resp BP Pulse Ox 97.8 F 79 16 160/77 96 07/27/18 08:16 07/27/18 08:16 07/27/18 08:16 07/27/18 08:16 07/27/18 08:16 - Patient Status Disposition: Home, Self-Care Condition: Fair - Discharge Instructions Follow Up With: Tyshawn Gonzalez MD [Partnered Physician] - 08/12/18 1:05 pm Haseeb Huff MD [Partnered Physician] - 07/30/18 10:15 am Additional Instructions: - Follow up with professional driver in 2-3 weeks after discharge. -Get a BMP a week after discharge. -Recommended regular diet with no salt restrictions. -Drink not more than 2L of free water/ day - Attending Attestation I examined this patient and my medical decision-making was reviewed with the Resident Physician on 07/27/18. I agree with the documented findings, disposition and treatment plan as described except to the extent set forth below. Ms Carranza has been admitted for hyponatremia. She had developed N/V after taking prednisone. She has received IV fluids in ED with correction of sodium rapidly. She was admitted and kept on hypotonic fluids with stable sodium. At this time she is afebrile and ready for discharge home. She had some abd discomfort and was started on Carafate. She feels this helps. Exam alert Comfortable Mucus membranes dry Heart not tachy No wheeze abd soft No edema Plan D/C home today Follow up with renal and PCP. <Mikey Pickett - Last Filed: 07/27/18 17:01> - NOTES TO OUTPATIENT PROVIDER Notes to Outpatient Provider: - Follow-up with professional driver 2-3 weeks. - Get a BMP in a week after discharge Date of Encounter: 07/27/18 Time of Encounter: 10:00 - Discharge Diagnosis (1) Hyponatremia Priority: Primary Status: Acute (2) GERD (gastroesophageal reflux disease) Priority: Secondary Status: Chronic Qualifiers: Esophagitis presence: esophagitis presence not specified Qualified Code(s) : K21.9 - Gastro-esophageal reflux disease without esophagitis (3) Neuroendocrine cancer Priority: Secondary Status: Chronic (4) HTN (hypertension) Priority: Secondary Status: Chronic Qualifiers: Hypertension type: essential hypertension Qualified Code(s): I10 - Essential (primary) hypertension Hospital course: Ms. 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 The nausea began after being on prednisone * 3 doses for her lung cancer. Patient had episodes of emesis to an extent that she filled apart of the bucket. Patient also complained of belly pain during admission. Patient was found to be hyponatremia at 116, received 2L of normal saline in the ED, and her Na went up to 132 in a span of 22 hrs. Patient was on IV D5W with frequent sodium check and her sodium was 131 as of this morning, which is her baseline. Patient's hyponatremia was likely multifactorial due to decreased by mouth intake, multiple emesis. Patient's belly pain has been progressively getting better with time for treating her with GI cocktail and Carafate. Patient has been sent home on 30 day course of Carafate. She needs to follow up with nephrology in 2-3 weeks from now. She also needs to get a BMP in a week from now. - Time Spent with Patient Total time spent providing and/or coordinating discharge services: Date of admission: 07/26/18 08:10 Primary care physician: PCP NONE - Constitutional Vitals: Temp Pulse Resp BP Pulse Ox 97.8 F 79 16 160/77 96 07/27/18 08:16 07/27/18 08:16 07/27/18 08:16 07/27/18 08:16 07/27/18 08:16 Exam: General: Alert and oriented. Comfortable at this time. Skin: Normal color, no rash, no lesions. H: Normocephalic. EENT: EOMI, pupils equal, reactive. Mucus membranes moist. No lesion. Cardiovascular: Normal S1 & S2, no rubs, murmurs or gallops. No JVD. Pulse regular. Lungs: Normal breath sounds, no wheezes or crackles. Abdomen: Soft, non-tender, no rigidity. Normal bowel sounds. Extremities: No deformity, no edema or tenderness, no joint swelling or clubbing. Neurological: Normal cognition and motor skills. Pulses: Carotid and radial pulses normal +2. Rest of the physical exam is non contributory - Patient Status Overall status at discharge: patient is progressing back to baseline - Diet and Activity Activity: increase activity as tolerated Diet: low fat, low cholesterol
--- NOTE | 2018-07-27 13:32 | Nephrology Progress Note ---
Date of Encounter: 07/27/18 Time of Encounter: 12:00 - Assessment and Plan (1) Hyponatremia Current Visit: Yes Status: Acute Hyponatremia is nicely and slowly correcting to her baseline. This was an acute on chronic hyponatremia. She affirmed drinking large amounts of water, so I recommend a 2L free water restriction. The patient has multifactorial hyponatremia related to decreased solid intake, nausea with vomiting, and consuming hypotonic fluids. Discussed with the hospitalist team: okay to discharge as she back to her baseline, and rec a BMP in about 1 week with 2-3 week Nephrology follow up. Thank you Subjective Principal diagnosis: Hyponatremia Interval history: Pt was s/e. She did not affirm N/V/D and had a good appetite, she said. She said that she was originally scheduled to see [facility] today d/ t her long Allergy list. She also had a urologic procedure about 4 months ago; she affirmed that she does feel that she usually empties her bladder completely when she voids. Objective - Vital Signs Vital signs: Vital Signs Temp Pulse Resp BP Pulse Ox 07/27/18 08:16 97.8 F 79 16 160/77 96 07/27/18 04:59 97.7 F 89 14 152/79 95 07/26/18 19:08 98.5 F 88 14 147/78 96 07/26/18 15:00 98.2 F 78 14 132/75 95 Intake and Output 07/26/18 07/27/18 07/27/18 23:59 07:59 15:59 Intake Total 1240 / 1240 360 / 360 Output Total 500 / 500 400 / 400 Balance 740 / 740 -40 / -40 Intake: IV Fluids 1000 / 1000 Oral 240 / 240 360 / 360 Output: Urine 500 / 500 400 / 400 Other: Meal Dinner Lunch Percent of Meal Consumed 25% 100% # Voids 2 Blood Glucose* 159 186 - General Appearance General appearance: Present: well-developed, well-nourished, appears started age EENT: Present: ATNC, PERRL, mucous membranes moist Neck: Present: supple Respiratory: Present: clear Cardiology: Present: no edema, normal S1, normal S2 Gastrointestinal: Present: normoactive bowel sounds, no guarding Integumentary: Present: warm and dry Neurologic: Present: no focal deficit, no asterixis, alert and oriented x3 Musculoskeletal: Present: no cyanosis, no clubbing Psychiatric: Present: mood/affect appropriate, cooperative - Lab 07/27/18 04:32 07/27/18 04:32 Most recent lab results Calcium 9.4 mg/dL (8.6-10.3) 07/27/18 04:32 Magnesium 2.3 mg/dL (1.6-2.6) 07/27/18 04:32 Consult Discharge Plan - Plan Referrals: Haseeb Huff MD [Partnered Physician] - 07/30/18 10:15 am Prescriptions: Sucralfate [Carafate] 1 gm PO 0730,1630 #60 tablet Sucralfate [Carafate] 1 gm PO 0730,1630 #90 tablet
[2018-07-27 13:44] LABS: Bilirubin,Urine Negative (Negative); Blood,Urine Moderate (Negative); Clarity,Urine Clear (Clear); Color,Urine Yellow (Yellow); Glucose,Urine (UA) Normal (Normal); Ketones,Urine Negative (Negative); Leukocyte Esterase,Urine Moderate (Negative); Nitrite,Urine Negative (Negative); Protein,Urine Trace mg/dL (Neg-Trace); Specific Gravity,Urine 1.017 (1.010-1.025); Urobilinogen,Urine Normal (Normal)
[2018-07-27 13:45] LABS: Bacteria,Urine Few per hpf (None-Few); Hyaline Casts,Urine None Seen per lpf (None-Few); RBC,Urine 15-30 per hpf (0-3); Squamous Epithelial Cell,Urine Many per lpf (None-Few)
[2018-07-27] MEDS ORDERED: (Cyclosporine [Restasis Multidose] 1 DROP) OP SCH (21:00)
--- NOTE | 2018-07-28 06:37 | Electrocardiograph Report ---
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
== END 2018-07-27 17:06 | disposition home or self-care (01) | DRG 641 ==
LOC: 3ANU 20:20 → EMEROOARM 20:20 → SUATTDRO 23:43 → 3ANU 07-25 00:31
PROVIDERS: ADMIT Internal Medicine; ATTEND Internal Medicine

== ENCOUNTER 2019-10-27 23:39 | Observation (INO) ==
[2019-10-28 00:22] LABS: Prothrombin Time 11.3 Seconds (9.4-12.1)
[2019-10-28 00:24] LABS: Activated Partial Thrombo Time 29.6 Seconds (26.0-36.0)
[2019-10-28 00:33] LABS: Basophils # 0.1 K/mcL (0.0-0.2); Basophils % 0.8 %; Eosinophils # 0.1 K/mcL (0.0-0.6); Eosinophils % 1.6 %; Hematocrit 40.8 % (35.3-44.9); Hemoglobin 14.1 g/dL (11.5-15.4); Immature Granulocytes % 0.5 % (0-4); Lymphocytes # 1.4 K/mcL (0.6-4.6); Lymphocytes % 22.5 %; Mean Corpuscular HGB Conc 34.6 g/dL (31.6-35.5); Mean Corpuscular Hemoglobin 30.2 pg (28.0-33.3); Mean Corpuscular Volume 87.4 fL (83.0-100.0); Mean Platelet Volume 9.2 fL (9.4-12.4); Monocytes # 0.5 K/mcL (0.0-1.3); Monocytes % 7.5 %; Neutrophils # 4.3 K/mcL (1.6-8.9); Platelet Count 216 K/mcL (140-400); Red Blood Count 4.67 M/mcL (3.82-4.97); Red Cell Distribution Width 13.4 % (11.5-14.5); Segmented Neutrophils % 67.1 %; White Blood Count 6.4 K/mcL (4.3-11.1)
[2019-10-28 00:39] LABS: Alanine Aminotransferase 10 Units/L (7-52); Albumin 4.1 g/dL (3.5-5.7); Albumin/Globulin Ratio 1.8 (1.1-2.2); Alkaline Phosphatase 50 Units/L (34-104); Amylase 68 Units/L (29-103); Aspartate Amino Transferase 12 Units/L (13-39); BUN/Creatinine Ratio 21 (6-26); Bilirubin,Direct 0.1 mg/dL (0.0-0.2); Bilirubin,Indirect 0.4 mg/dL (0.0-1.0); Bilirubin,Total 0.5 mg/dL (0.3-1.0); Blood Urea Nitrogen 15 mg/dL (8-23); Calcium 9.9 mg/dL (8.6-10.3); Carbon Dioxide 28 mEq/L (23-29); Chloride 99 mEq/L (98-107); Globulin 2.3 g/dL (2.4-3.5); Glucose 197 mg/dL (70-105); Lipase 38 Units/L (11-82); Osmolality,Calculated 286 (280-300); Potassium 3.4 mEq/L (3.5-5.1); Sodium 135 mEq/L (136-145); Total Protein 6.4 g/dL (6.4-8.9); Troponin I < 0.03 ng/mL (< 0.04); eGFR For African Americans > 60 (> 60); eGFR For Non-African Americans > 60 (> 60)
[2019-10-28] MEDS ORDERED: *HR* FentaNYL (PF) 100 MCG/2 ML VIAL IVP ONE (00:39)
[2019-10-28 01:09] LABS: Bilirubin,Urine Negative (Negative); Blood,Urine Small (Negative); Clarity,Urine Cloudy (Clear); Color,Urine Yellow (Yellow); Glucose,Urine (UA) Normal (Normal); Ketones,Urine Negative (Negative); Leukocyte Esterase,Urine Negative (Negative); Nitrite,Urine Negative (Negative); PH,Urine 7.5 pH Units (5.0-8.0); Protein,Urine Trace mg/dL (Neg-Trace); Specific Gravity,Urine 1.011 (1.010-1.025); Urobilinogen,Urine Normal (Normal)
[2019-10-28 01:10] LABS: Bacteria,Urine None Seen per hpf (None-Few); Hyaline Casts,Urine Few per lpf (None-Few); Squamous Epithelial Cell,Urine Many per lpf (None-Few); WBC,Urine 0-3 per hpf (0-3)
[2019-10-28] MEDS ORDERED: Ondansetron 4 MG/2 ML VIAL IVP PRN (08:01)
[2019-10-28] MEDS ORDERED: Naloxone 0.4 MG/ML INJ IVP PRN (08:01)
[2019-10-28] MEDS ORDERED: *HR* HYDROcodone/Acet 5/325 mg TABLET PO PRN (08:01)
[2019-10-28] MEDS ORDERED: *HR* HYDROcodone/Acet 10/325 mg TABLET PO PRN (08:03)
[2019-10-28] MEDS ORDERED: *HR* Dextrose 50 % in Water (Syg) 50 ML SYRINGE IVP PRN (08:30)
[2019-10-28] MEDS ORDERED: Dextrose Gel 15 GM/37.5 ML TUBE PO PRN ×2 (08:30)
[2019-10-28] MEDS ORDERED: D5% in Water 1,000 ML IVC PRN (08:30)
[2019-10-28] MEDS: Cholecalciferol (D-3) 1,000 UNIT (25MCG) TABLET PO SCH (08:41)
[2019-10-28] MEDS: Loratadine 10 MG TABLET PO SCH (08:41)
[2019-10-28] MEDS: Pantoprazole 40 MG VIAL IVP SCH ×2 (08:41→10:54)
[2019-10-28] MEDS: Ringers Solution, Lactated 1,000 ML IVC SCH (10:53)
[2019-10-28] MEDS: CYCLOSPORINE OP SCH ×2 (10:54→20:22)
[2019-10-28] MEDS: Insulin LISPRO 300 UNITS/3 ML VIAL SQ SCH ×3 (13:03→20:21)
[2019-10-28] MEDS: Sucralfate 1 GM TABLET PO SCH (16:21)
[2019-10-29 07:06] LABS: Basophils % 0.2 %; Eosinophils # 0.1 K/mcL (0.0-0.6); Eosinophils % 0.7 %; Hematocrit 34.1 % (35.3-44.9); Immature Granulocytes % 0.6 % (0-4); Lymphocytes # 1.2 K/mcL (0.6-4.6); Lymphocytes % 13.6 %; Mean Corpuscular HGB Conc 34.6 g/dL (31.6-35.5); Mean Corpuscular Hemoglobin 29.7 pg (28.0-33.3); Mean Corpuscular Volume 85.9 fL (83.0-100.0); Mean Platelet Volume 9.7 fL (9.4-12.4); Monocytes # 0.9 K/mcL (0.0-1.3); Monocytes % 9.9 %; Neutrophils # 6.5 K/mcL (1.6-8.9); Platelet Count 203 K/mcL (140-400); Red Blood Count 3.97 M/mcL (3.82-4.97); Red Cell Distribution Width 13.4 % (11.5-14.5); White Blood Count 8.7 K/mcL (4.3-11.1)
[2019-10-29 07:13] LABS: Hemoglobin 11.8 g/dL (11.5-15.4)
[2019-10-29 07:25] LABS: BUN/Creatinine Ratio 16 (6-26); Blood Urea Nitrogen 10 mg/dL (8-23); Carbon Dioxide 29 mEq/L (23-29); Chloride 97 mEq/L (98-107); Glucose 115 mg/dL (70-105); Osmolality,Calculated 280 (280-300); Potassium 3.7 mEq/L (3.5-5.1); Sodium 135 mEq/L (136-145); eGFR For African Americans > 60 (> 60); eGFR For Non-African Americans > 60 (> 60)
[2019-10-29] MEDS: Loratadine 10 MG TABLET PO SCH (08:00)
[2019-10-29] MEDS: Sucralfate 1 GM TABLET PO SCH ×2 (08:00→17:52)
[2019-10-29] MEDS: Pantoprazole 40 MG VIAL IVP SCH (08:01)
[2019-10-29] MEDS: Cholecalciferol (D-3) 1,000 UNIT (25MCG) TABLET PO SCH (08:02)
[2019-10-29] MEDS: Insulin LISPRO 300 UNITS/3 ML VIAL SQ SCH ×4 (08:02→22:04)
[2019-10-29] MEDS: *HR* LORazepam 1 MG TABLET PO PRN ×2 (08:16→08:19)
[2019-10-29] MEDS: CYCLOSPORINE OP SCH ×3 (13:58→22:03)
[2019-10-29] MEDS ORDERED: Ringers Solution, Lactated 1,000 ML ONE (14:04)
[2019-10-29] MEDS: Ringers Solution, Lactated 1,000 ML IVC SCH (14:05)
[2019-10-29] MEDS ORDERED: Simethicone 80 MG TAB.CHEW PO PRN (16:15)
[2019-10-29] MEDS ORDERED: amLODIPine 5 MG TABLET PO SCH (21:00)
[2019-10-30 03:40] LABS: Hematocrit 34.3 % (35.3-44.9); Hemoglobin 11.7 g/dL (11.5-15.4); Mean Corpuscular HGB Conc 34.1 g/dL (31.6-35.5); Mean Corpuscular Hemoglobin 30.3 pg (28.0-33.3); Mean Corpuscular Volume 88.9 fL (83.0-100.0); Mean Platelet Volume 9.6 fL (9.4-12.4); Platelet Count 179 K/mcL (140-400); Red Blood Count 3.86 M/mcL (3.82-4.97); Red Cell Distribution Width 13.4 % (11.5-14.5); White Blood Count 8.6 K/mcL (4.3-11.1)
[2019-10-30 03:48] LABS: BUN/Creatinine Ratio 15 (6-26); Blood Urea Nitrogen 9 mg/dL (8-23); Calcium 8.8 mg/dL (8.6-10.3); Carbon Dioxide 28 mEq/L (23-29); Chloride 102 mEq/L (98-107); Glucose 101 mg/dL (70-105); Osmolality,Calculated 279 (280-300); Potassium 3.5 mEq/L (3.5-5.1); Sodium 135 mEq/L (136-145); eGFR For African Americans > 60 (> 60); eGFR For Non-African Americans > 60 (> 60)
[2019-10-30] MEDS ORDERED: amLODIPine 5 MG TABLET PO SCH ×2 (09:00)
[2019-10-30] MEDS ORDERED: valACYclovir 500 MG TABLET PO SCH (09:00)
[2019-10-30] MEDS: Sucralfate 1 GM TABLET PO SCH (10:47)
[2019-10-30] MEDS: Loratadine 10 MG TABLET PO SCH (10:47)
[2019-10-30] MEDS: Cholecalciferol (D-3) 1,000 UNIT (25MCG) TABLET PO SCH (10:47)
[2019-10-30] MEDS: Pantoprazole 40 MG VIAL IVP SCH (10:48)
[2019-10-30] MEDS: CYCLOSPORINE OP SCH (10:48)
[2019-10-30] MEDS: Insulin LISPRO 300 UNITS/3 ML VIAL SQ SCH ×2 (10:48→12:38)
[2019-10-30 11:13] VITALS: BP 172/74
== END 2019-10-30 13:46 | disposition home health service (06) ==
LOC: 3BNU 23:39 → EMEROOARM 23:39 → SUATTDRO 10-28 05:20 → 3BNU 10-28 06:00
PROVIDERS: ADMIT Internal Medicine; ATTEND Internal Medicine

== ENCOUNTER 2020-04-16 19:59 | Observation (INO) ==
[2020-04-16 20:33] LABS: Basophils # 0.1 K/mcL (0.0-0.2); Basophils % 0.3 %; Eosinophils % 0.2 %; Hematocrit 38.9 % (35.3-44.9); Hemoglobin 13.2 g/dL (11.5-15.4); Immature Granulocytes % 0.3 % (0-4); Lymphocytes # 0.5 K/mcL (0.6-4.6); Lymphocytes % 2.2 %; Mean Corpuscular HGB Conc 33.9 g/dL (31.6-35.5); Mean Corpuscular Hemoglobin 29.6 pg (28.0-33.3); Mean Corpuscular Volume 87.2 fL (83.0-100.0); Mean Platelet Volume 9.1 fL (9.4-12.4); Monocytes % 3.5 %; Platelet Count 196 K/mcL (140-400); Red Blood Count 4.46 M/mcL (3.82-4.97); Segmented Neutrophils % 93.5 %
[2020-04-16 20:34] LABS: Monocytes # 0.8 K/mcL (0.0-1.3); White Blood Count 21.4 K/mcL (4.3-11.1)
[2020-04-16 20:41] LABS: Prothrombin Time 11.2 Seconds (9.4-12.1)
[2020-04-16 20:41] LABS: Bilirubin,Urine Negative (Negative); Blood,Urine Large (Negative); Clarity,Urine Cloudy (Clear); Color,Urine Yellow (Yellow); Glucose,Urine (UA) Normal (Normal); Ketones,Urine 40 mg/dL (Negative); Leukocyte Esterase,Urine Large (Negative); Nitrite,Urine Negative (Negative); PH,Urine 7.5 pH Units (5.0-8.0); Protein,Urine 100 mg/dL (Neg-Trace); Specific Gravity,Urine 1.014 (1.010-1.025); Urobilinogen,Urine Normal (Normal)
[2020-04-16 20:43] LABS: Bacteria,Urine Many per hpf (None-Few); Hyaline Casts,Urine Few per lpf (None-Few); RBC,Urine TNTC per hpf (0-3); Squamous Epithelial Cell,Urine Moderate per lpf (None-Few); WBC,Urine TNTC per hpf (0-3)
[2020-04-16 20:58] LABS: Alanine Aminotransferase 10 Units/L (7-52); Albumin 4.6 g/dL (3.5-5.7); Alkaline Phosphatase 51 Units/L (34-104); Aspartate Amino Transferase 15 Units/L (13-39); BUN/Creatinine Ratio 15 (6-26); Bilirubin,Direct 0.2 mg/dL (0.0-0.2); Bilirubin,Indirect 0.8 mg/dL (0.0-1.0); Blood Urea Nitrogen 8 mg/dL (8-23); Calcium 9.3 mg/dL (8.6-10.3); Carbon Dioxide 24 mEq/L (23-29); Chloride 92 mEq/L (98-107); Globulin 2.3 g/dL (2.4-3.5); Glucose 152 mg/dL (70-105); Lipase 23 Units/L (11-82); Osmolality,Calculated 267 (280-300); Potassium 3.3 mEq/L (3.5-5.1); Sodium 128 mEq/L (136-145); Total Protein 6.9 g/dL (6.4-8.9); Troponin I < 0.03 ng/mL (< 0.04); eGFR For African Americans > 60 (> 60); eGFR For Non-African Americans > 60 (> 60)
[2020-04-16] MEDS ORDERED: cefTRIAXone 1,000 MG in 0.9 % Sodium Chloride Mini Bag 100 ML IVPB ONE (21:09)
[2020-04-16] MEDS ORDERED: 0.9 % Sodium Chloride 1,000 ML IVC ONE (21:12)
[2020-04-16] MEDS ORDERED: Potassium Chloride Elixir 20 MEQ/15 ML UDC PO ONE (21:43)
[2020-04-16] MEDS ORDERED: Ondansetron 4 MG/2 ML VIAL IVP PRN (23:24)
[2020-04-16] MEDS ORDERED: Naloxone 0.4 MG/ML INJ IVP PRN (23:24)
[2020-04-16] MEDS ORDERED: Acetaminophen 325 MG TABLET PO PRN (23:24)
[2020-04-17] MEDS ORDERED: Dextrose Gel 15 GM/37.5 ML TUBE PO PRN ×2 (00:41)
[2020-04-17] MEDS ORDERED: *HR* Dextrose 50 % in Water (Syg) 50 ML SYRINGE IVP PRN (00:41)
[2020-04-17] MEDS ORDERED: D5% in Water 1,000 ML IVC PRN (00:41)
[2020-04-17] MEDS ORDERED: 0.9 % Sodium Chloride 1,000 ML IVC SCH ×2 (00:45→12:30)
[2020-04-17] MEDS: Pantoprazole 40 MG VIAL IVP SCH ×2 (04:57→17:14)
[2020-04-17 05:08] LABS: White Blood Count 13.9 K/mcL (4.3-11.1)
[2020-04-17 05:09] LABS: Basophils % 0.2 %; Eosinophils % 0.1 %; Hematocrit 34.7 % (35.3-44.9); Hemoglobin 11.4 g/dL (11.5-15.4); Immature Granulocytes % 0.4 % (0-4); Lymphocytes # 1.1 K/mcL (0.6-4.6); Mean Corpuscular HGB Conc 32.9 g/dL (31.6-35.5); Mean Corpuscular Hemoglobin 29.2 pg (28.0-33.3); Mean Corpuscular Volume 88.7 fL (83.0-100.0); Mean Platelet Volume 9.1 fL (9.4-12.4); Monocytes # 0.7 K/mcL (0.0-1.3); Platelet Count 181 K/mcL (140-400); Red Blood Count 3.91 M/mcL (3.82-4.97); Segmented Neutrophils % 86.3 %
[2020-04-17 05:25] LABS: BUN/Creatinine Ratio 10 (6-26); Blood Urea Nitrogen 5 mg/dL (8-23); Calcium 8.2 mg/dL (8.6-10.3); Carbon Dioxide 25 mEq/L (23-29); Chloride 102 mEq/L (98-107); Glucose 113 mg/dL (70-105); Osmolality,Calculated 270 (280-300); Potassium 3.6 mEq/L (3.5-5.1); Sodium 131 mEq/L (136-145); eGFR For African Americans > 60 (> 60); eGFR For Non-African Americans > 60 (> 60)
[2020-04-17] MEDS ORDERED: *HR* Heparin 5,000 UNIT/ML VIAL SQ SCH (06:00)
[2020-04-17] MEDS: Insulin LISPRO 300 UNITS/3 ML VIAL SQ SCH ×3 (09:08→17:03)
[2020-04-17] MEDS: Aspirin Enteric Coated 81 MG Tablet PO SCH (09:09)
[2020-04-17] MEDS: cefTRIAXone 1,000 MG in Water for inj. (sterile) 10 ML IVP SCH (09:09)
[2020-04-17] MEDS: amLODIPine 5 MG TABLET PO SCH ×4 (09:09→21:39)
[2020-04-17] MEDS: *HR* LORazepam 1 MG TABLET PO PRN (17:14)
[2020-04-17] MEDS ORDERED: polyethylene glycoL 3350 17 GM POWD.PACK PO PRN (17:35)
[2020-04-17] MEDS ORDERED: Chloraseptic Spray 177 ML BOTTLE MM PRN (20:01)
[2020-04-17] MEDS ORDERED: Insulin LISPRO 300 UNITS/3 ML VIAL SQ SCH (21:00)
[2020-04-18 05:04] LABS: Basophils % 0.5 %; Eosinophils # 0.2 K/mcL (0.0-0.6); Eosinophils % 2.8 %; Hematocrit 32.1 % (35.3-44.9); Hemoglobin 10.8 g/dL (11.5-15.4); Immature Granulocytes % 0.4 % (0-4); Lymphocytes # 1.1 K/mcL (0.6-4.6); Lymphocytes % 13.1 %; Mean Corpuscular HGB Conc 33.6 g/dL (31.6-35.5); Mean Corpuscular Hemoglobin 30.2 pg (28.0-33.3); Mean Corpuscular Volume 89.7 fL (83.0-100.0); Mean Platelet Volume 9.6 fL (9.4-12.4); Monocytes # 0.8 K/mcL (0.0-1.3); Monocytes % 9.7 %; Neutrophils # 6.1 K/mcL (1.6-8.9); Platelet Count 171 K/mcL (140-400); Red Blood Count 3.58 M/mcL (3.82-4.97); Red Cell Distribution Width 13.2 % (11.5-14.5); Segmented Neutrophils % 73.5 %; White Blood Count 8.3 K/mcL (4.3-11.1)
[2020-04-18] MEDS: Pantoprazole 40 MG VIAL IVP SCH (05:11)
[2020-04-18 05:21] LABS: BUN/Creatinine Ratio 23 (6-26); Blood Urea Nitrogen 12 mg/dL (8-23); Calcium 8.4 mg/dL (8.6-10.3); Carbon Dioxide 25 mEq/L (23-29); Chloride 104 mEq/L (98-107); Glucose 108 mg/dL (70-105); Osmolality,Calculated 276 (280-300); Potassium 3.8 mEq/L (3.5-5.1); Sodium 133 mEq/L (136-145); eGFR For African Americans > 60 (> 60); eGFR For Non-African Americans > 60 (> 60)
[2020-04-18] MEDS: Insulin LISPRO 300 UNITS/3 ML VIAL SQ SCH ×2 (08:06→12:29)
[2020-04-18] MEDS: cefTRIAXone 1,000 MG in Water for inj. (sterile) 10 ML IVP SCH (08:11)
[2020-04-18] MEDS: amLODIPine 5 MG TABLET PO SCH (08:12)
[2020-04-18] MEDS: Aspirin Enteric Coated 81 MG Tablet PO SCH (08:13)
[2020-04-18 10:14] VITALS: BP 136/74
[2020-04-18] MEDS: *HR* LORazepam 1 MG TABLET PO PRN (12:29)
[2020-04-19 09:48] LABS: Urine Collection Volume RANDOM mL
== END 2020-04-18 14:37 | disposition home health service (06) ==
LOC: EMEROOARM 19:59 → 3ANU 19:59 → SUATTDRO 22:11 → 3ANU 23:11
PROVIDERS: ADMIT Internal Medicine; ATTEND Internal Medicine

== ENCOUNTER 2021-08-23 01:45 | Inpatient (IN) ==
[2021-08-23 02:10] LABS: Hematocrit 38.5 % (35.3-44.9); Hemoglobin 12.8 g/dL (11.5-15.4); Mean Corpuscular HGB Conc 33.2 g/dL (31.6-35.5); Mean Corpuscular Volume 87.3 fL (83.0-100.0); Mean Platelet Volume 9.1 fL (9.4-12.4); Platelet Count 216 K/mcL (140-400); Red Blood Count 4.41 M/mcL (3.82-4.97); Red Cell Distribution Width 12.3 % (11.5-14.5)
[2021-08-23 02:19] LABS: INR 1.1; Prothrombin Time 12.2 Seconds (9.4-12.1)
[2021-08-23 02:39] LABS: BUN/Creatinine Ratio 17 (6-26); Blood Urea Nitrogen 11 mg/dL (8-23); Calcium 9.6 mg/dL (8.6-10.3); Carbon Dioxide 26 mEq/L (23-29); Chloride 98 mEq/L (98-107); Glucose 167 mg/dL (70-105); Osmolality,Calculated 275 (280-300); Potassium 4.5 mEq/L (3.5-5.1); Sodium 131 mEq/L (136-145); Troponin I < 0.03 ng/mL (< 0.04); eGFR For African Americans > 60 (> 60); eGFR For Non-African Americans > 60 (> 60)
[2021-08-23] MEDS ORDERED: Ondansetron 4 MG/2 ML VIAL IVP ONE (05:17)
[2021-08-23 05:50] LABS: Bacteria,Urine Few per hpf (None-Few); Bilirubin,Urine Negative (Negative); Blood,Urine Trace (Negative); Clarity,Urine Turbid (Clear); Color,Urine Yellow (Yellow); Glucose,Urine (UA) Normal (Normal); Hyaline Casts,Urine Few per lpf (None Seen); Ketones,Urine Negative (Negative); Leukocyte Esterase,Urine Large (Negative); Nitrite,Urine Negative (Negative); Protein,Urine Negative (Neg-Trace); Specific Gravity,Urine 1.008 (1.010-1.025); Squamous Epithelial Cell,Urine Few per hpf (None-Few); Urobilinogen,Urine Normal (Normal); WBC,Urine 15-30 per hpf (0-3)
[2021-08-23] MEDS ORDERED: cefTRIAXone 1,000 MG in 0.9 % Sodium Chloride Mini Bag 100 ML IVPB ONE (07:12)
[2021-08-23] MEDS: MetroNIDAZOLE 500 MG/100 ML 500 MG/100 ML BAG IVPB SCH ×2 (08:33→16:51)
[2021-08-23] MEDS ORDERED: Milk and Molasses Enema 200 ML RC ONE (08:49)
[2021-08-23] MEDS ORDERED: Naloxone 0.4 MG/ML INJ IVP PRN (10:06)
[2021-08-23] MEDS ORDERED: D5% in Water 1,000 ML IVC PRN (10:07)
[2021-08-23] MEDS ORDERED: *HR* Dextrose 50 % in Water (Syg) 50 ML SYRINGE IVP PRN (10:07)
[2021-08-23] MEDS ORDERED: Dextrose Gel 15 GM/37.5 ML TUBE PO PRN ×2 (10:07)
[2021-08-23] MEDS: 0.9 % Sodium Chloride 1,000 ML IVC SCH ×2 (12:10→16:49)
[2021-08-23] MEDS: Insulin LISPRO 300 UNITS/3 ML VIAL SUBQ SCH ×3 (12:11→21:50)
[2021-08-23] MEDS: *HR* Heparin 5,000 UNIT/ML VIAL SQ SCH (17:00)
[2021-08-24] MEDS: MetroNIDAZOLE 500 MG/100 ML 500 MG/100 ML BAG IVPB SCH ×4 (00:36→23:26)
[2021-08-24] MEDS: *HR* Heparin 5,000 UNIT/ML VIAL SQ SCH ×2 (04:33→18:28)
[2021-08-24 06:31] LABS: Basophils % 0.3 %; Eosinophils # 0.1 K/mcL (0.0-0.6); Eosinophils % 0.6 %; Hemoglobin 11.3 g/dL (11.5-15.4); Immature Granulocytes % 0.2 % (0-4); Lymphocytes # 1.4 K/mcL (0.6-4.6); Lymphocytes % 11.7 %; Mean Corpuscular HGB Conc 34.2 g/dL (31.6-35.5); Mean Corpuscular Volume 87.5 fL (83.0-100.0); Mean Platelet Volume 9.6 fL (9.4-12.4); Neutrophils # 9.1 K/mcL (1.6-8.9); Platelet Count 182 K/mcL (140-400); Red Blood Count 3.77 M/mcL (3.82-4.97); Red Cell Distribution Width 12.5 % (11.5-14.5); Segmented Neutrophils % 78.2 %; White Blood Count 11.6 K/mcL (4.3-11.1)
[2021-08-24 06:41] LABS: BUN/Creatinine Ratio 17 (6-26); Blood Urea Nitrogen 9 mg/dL (8-23); Calcium 8.2 mg/dL (8.6-10.3); Carbon Dioxide 23 mEq/L (23-29); Chloride 101 mEq/L (98-107); Glucose 96 mg/dL (70-105); Osmolality,Calculated 271 (280-300); Potassium 3.4 mEq/L (3.5-5.1); Sodium 131 mEq/L (136-145); eGFR For African Americans > 60 (> 60); eGFR For Non-African Americans > 60 (> 60)
[2021-08-24] MEDS: Insulin LISPRO 300 UNITS/3 ML VIAL SUBQ SCH ×4 (07:57→20:01)
[2021-08-24] MEDS ORDERED: Gadolinium Contrast Agent (WT Based) IV PRN (08:07)
[2021-08-24] MEDS: polyethylene glycoL 3350 17 GM POWD.PACK PO SCH (10:40)
[2021-08-24] MEDS: cefTRIAXone 1,000 MG in Water for inj. (sterile) 10 ML IVP SCH (10:40)
[2021-08-24] MEDS ORDERED: Perflutren Lipid Microsphere 1.3 ML in 0.9 % Sodium Chloride 8.7 ML IVP PRN (18:48)
[2021-08-24] MEDS ORDERED: Melatonin 3 MG TABLET PO PRN (18:53)
[2021-08-24] MEDS: Lactobacillus 1 EACH CAP.SPRINK PO SCH (20:11)
[2021-08-24] MEDS: amLODIPine 5 MG TABLET PO SCH (20:12)
[2021-08-24] MEDS: *HR* LORazepam 0.5 MG TABLET PO PRN (20:13)
[2021-08-24] MEDS: CYCLOSPORINE OP SCH (20:13)
[2021-08-25 04:00] LABS: Hematocrit 37.2 % (35.3-44.9); Hemoglobin 12.8 g/dL (11.5-15.4); Mean Corpuscular HGB Conc 34.4 g/dL (31.6-35.5); Mean Corpuscular Hemoglobin 29.6 pg (28.0-33.3); Mean Corpuscular Volume 86.1 fL (83.0-100.0); Mean Platelet Volume 9.5 fL (9.4-12.4); Platelet Count 209 K/mcL (140-400); Red Blood Count 4.32 M/mcL (3.82-4.97); Red Cell Distribution Width 12.4 % (11.5-14.5); White Blood Count 10.1 K/mcL (4.3-11.1)
[2021-08-25 04:03] LABS: BUN/Creatinine Ratio 14 (6-26); Blood Urea Nitrogen 7 mg/dL (8-23); Calcium 8.8 mg/dL (8.6-10.3); Carbon Dioxide 26 mEq/L (23-29); Chloride 98 mEq/L (98-107); Glucose 118 mg/dL (70-105); Magnesium 1.9 mg/dL (1.6-2.6); Osmolality,Calculated 269 (280-300); Phosphorous 2.3 mg/dL (2.7-4.5); Potassium 3.4 mEq/L (3.5-5.1); Sodium 130 mEq/L (136-145); eGFR For African Americans > 60 (> 60); eGFR For Non-African Americans > 60 (> 60)
[2021-08-25] MEDS: *HR* Heparin 5,000 UNIT/ML VIAL SQ SCH ×2 (05:46→17:08)
[2021-08-25 06:01] LABS: Estimated Average Glucose 117 mg/dl; Hemoglobin A1C 5.7 %
[2021-08-25] MEDS: Insulin LISPRO 300 UNITS/3 ML VIAL SUBQ SCH ×4 (07:53→19:50)
[2021-08-25] MEDS: Lactobacillus 1 EACH CAP.SPRINK PO SCH ×2 (08:06→19:48)
[2021-08-25] MEDS: amLODIPine 5 MG TABLET PO SCH (08:07)
[2021-08-25] MEDS: Aspirin Enteric Coated 81 MG Tablet PO SCH (08:07)
[2021-08-25] MEDS: CYCLOSPORINE OP SCH ×2 (08:08→19:44)
[2021-08-25] MEDS: MetroNIDAZOLE 500 MG/100 ML 500 MG/100 ML BAG IVPB SCH ×3 (08:08→18:20)
[2021-08-25] MEDS: cefTRIAXone 1,000 MG in Water for inj. (sterile) 10 ML IVP SCH (08:09)
[2021-08-25] MEDS: polyethylene glycoL 3350 17 GM POWD.PACK PO SCH (08:10)
[2021-08-25] MEDS: Multivit/Ca/Min/Fe/FA 1 TAB TABLET PO SCH (08:16)
[2021-08-25] MEDS: metroNIDAZOLE 500 MG TABLET PO SCH ×2 (17:05→17:07)
[2021-08-26] MEDS: MetroNIDAZOLE 500 MG/100 ML 500 MG/100 ML BAG IVPB SCH ×4 (00:32→23:41)
[2021-08-26 05:54] LABS: Hematocrit 37.6 % (35.3-44.9); Hemoglobin 12.6 g/dL (11.5-15.4); Mean Corpuscular HGB Conc 33.5 g/dL (31.6-35.5); Mean Corpuscular Volume 86.6 fL (83.0-100.0); Mean Platelet Volume 9.7 fL (9.4-12.4); Platelet Count 209 K/mcL (140-400); Red Blood Count 4.34 M/mcL (3.82-4.97); Red Cell Distribution Width 12.4 % (11.5-14.5); White Blood Count 7.8 K/mcL (4.3-11.1)
[2021-08-26] MEDS: *HR* Heparin 5,000 UNIT/ML VIAL SQ SCH ×2 (06:10→17:44)
[2021-08-26 06:16] LABS: BUN/Creatinine Ratio 17 (6-26); Blood Urea Nitrogen 8 mg/dL (8-23); Calcium 8.8 mg/dL (8.6-10.3); Carbon Dioxide 28 mEq/L (23-29); Chloride 98 mEq/L (98-107); Glucose 109 mg/dL (70-105); Osmolality,Calculated 269 (280-300); Phosphorous 3.1 mg/dL (2.7-4.5); Potassium 3.9 mEq/L (3.5-5.1); Sodium 130 mEq/L (136-145); eGFR For African Americans > 60 (> 60); eGFR For Non-African Americans > 60 (> 60)
[2021-08-26] MEDS: Insulin LISPRO 300 UNITS/3 ML VIAL SUBQ SCH ×5 (07:30→20:32)
[2021-08-26] MEDS: Lactobacillus 1 EACH CAP.SPRINK PO SCH ×3 (10:19→20:29)
[2021-08-26] MEDS: polyethylene glycoL 3350 17 GM POWD.PACK PO SCH ×2 (10:22→11:04)
[2021-08-26] MEDS: Multivit/Ca/Min/Fe/FA 1 TAB TABLET PO SCH ×2 (10:23→11:30)
[2021-08-26] MEDS: Aspirin Enteric Coated 81 MG Tablet PO SCH ×2 (10:43→11:01)
[2021-08-26] MEDS: CYCLOSPORINE OP SCH ×3 (10:46→20:28)
[2021-08-26] MEDS: amLODIPine 5 MG TABLET PO SCH ×3 (10:46→20:34)
[2021-08-26] MEDS: cefTRIAXone 1,000 MG in Water for inj. (sterile) 10 ML IVP SCH (11:24)
[2021-08-26] MEDS: *HR* LORazepam 0.5 MG TABLET PO PRN (15:04)
[2021-08-27 02:10] LABS: Hematocrit 35.6 % (35.3-44.9); Hemoglobin 12.4 g/dL (11.5-15.4); Mean Corpuscular HGB Conc 34.8 g/dL (31.6-35.5); Mean Corpuscular Hemoglobin 29.7 pg (28.0-33.3); Mean Corpuscular Volume 85.4 fL (83.0-100.0); Platelet Count 212 K/mcL (140-400); Red Blood Count 4.17 M/mcL (3.82-4.97); Red Cell Distribution Width 12.3 % (11.5-14.5); White Blood Count 7.3 K/mcL (4.3-11.1)
[2021-08-27 02:30] LABS: BUN/Creatinine Ratio 25 (6-26); Blood Urea Nitrogen 13 mg/dL (8-23); Carbon Dioxide 25 mEq/L (23-29); Chloride 99 mEq/L (98-107); Glucose 101 mg/dL (70-105); Magnesium 1.9 mg/dL (1.6-2.6); Osmolality,Calculated 268 (280-300); Phosphorous 3.6 mg/dL (2.7-4.5); Potassium 3.9 mEq/L (3.5-5.1); Sodium 129 mEq/L (136-145); eGFR For African Americans > 60 (> 60); eGFR For Non-African Americans > 60 (> 60)
[2021-08-27] MEDS: *HR* Heparin 5,000 UNIT/ML VIAL SQ SCH ×2 (05:27→16:57)
[2021-08-27] MEDS: Multivit/Ca/Min/Fe/FA 1 TAB TABLET PO SCH ×2 (08:32→09:05)
[2021-08-27] MEDS: Lactobacillus 1 EACH CAP.SPRINK PO SCH ×3 (08:32→20:59)
[2021-08-27] MEDS: amLODIPine 5 MG TABLET PO SCH ×2 (08:32→20:59)
[2021-08-27] MEDS: Aspirin Enteric Coated 81 MG Tablet PO SCH (08:32)
[2021-08-27] MEDS: Insulin LISPRO 300 UNITS/3 ML VIAL SUBQ SCH ×4 (08:35→20:51)
[2021-08-27] MEDS: polyethylene glycoL 3350 17 GM POWD.PACK PO SCH (08:37)
[2021-08-27] MEDS: cefTRIAXone 1,000 MG in Water for inj. (sterile) 10 ML IVP SCH (08:43)
[2021-08-27] MEDS: MetroNIDAZOLE 500 MG/100 ML 500 MG/100 ML BAG IVPB SCH ×2 (08:49→17:04)
[2021-08-27] MEDS: CYCLOSPORINE OP SCH ×2 (09:05→22:27)
[2021-08-27] MEDS: *HR* LORazepam 0.5 MG TABLET PO PRN (11:27)
[2021-08-28 04:03] LABS: BUN/Creatinine Ratio 19 (6-26); Blood Urea Nitrogen 10 mg/dL (8-23); Carbon Dioxide 26 mEq/L (23-29); Chloride 98 mEq/L (98-107); Glucose 110 mg/dL (70-105); Osmolality,Calculated 270 (280-300); Potassium 3.7 mEq/L (3.5-5.1); Sodium 130 mEq/L (136-145); eGFR For African Americans > 60 (> 60); eGFR For Non-African Americans > 60 (> 60)
[2021-08-28] MEDS: *HR* Heparin 5,000 UNIT/ML VIAL SQ SCH ×2 (06:22→16:57)
[2021-08-28] MEDS: Insulin LISPRO 300 UNITS/3 ML VIAL SUBQ SCH ×4 (07:32→20:50)
[2021-08-28] MEDS: Aspirin Enteric Coated 81 MG Tablet PO SCH (07:39)
[2021-08-28] MEDS: amLODIPine 5 MG TABLET PO SCH ×2 (07:39→20:44)
[2021-08-28] MEDS: CYCLOSPORINE OP SCH (07:40)
[2021-08-28] MEDS: Lactobacillus 1 EACH CAP.SPRINK PO SCH ×2 (07:43→20:49)
[2021-08-28] MEDS: Multivit/Ca/Min/Fe/FA 1 TAB TABLET PO SCH (07:44)
[2021-08-28] MEDS: polyethylene glycoL 3350 17 GM POWD.PACK PO SCH (07:45)
[2021-08-28] MEDS: *HR* LORazepam 0.5 MG TABLET PO PRN (17:01)
[2021-08-29] MEDS: *HR* Heparin 5,000 UNIT/ML VIAL SQ SCH (05:17)
[2021-08-29 07:53] VITALS: TEMP 97.8
[2021-08-29] MEDS: Insulin LISPRO 300 UNITS/3 ML VIAL SUBQ SCH ×2 (08:28→11:34)
[2021-08-29] MEDS: Lactobacillus 1 EACH CAP.SPRINK PO SCH (08:34)
[2021-08-29] MEDS: Multivit/Ca/Min/Fe/FA 1 TAB TABLET PO SCH (08:34)
[2021-08-29] MEDS: amLODIPine 5 MG TABLET PO SCH (08:34)
[2021-08-29] MEDS: Aspirin Enteric Coated 81 MG Tablet PO SCH (08:34)
[2021-08-29] MEDS: polyethylene glycoL 3350 17 GM POWD.PACK PO SCH (08:35)
[2021-08-29] MEDS: *HR* LORazepam 0.5 MG TABLET PO PRN (09:52)
[2021-08-29 10:53] LABS: Adenovirus Not Detected (Not Detect); Bordetella Pertussis Not Detected (Not Detect); Chlamydophila pneumoniae Not Detected (Not Detect); Coronavirus 229E Not Detected (Not Detect); Coronavirus HKU1 Not Detected (Not Detect); Coronavirus NL63 Not Detected (Not Detect); Coronavirus OC43 Not Detected (Not Detect); Human Metapneumovirus Not Detected (Not Detect); Human Rhinovirus/Enterovirus Not Detected (Not Detect); Influenza A Subtype 2009 H1 Not Detected (Not Detect); Influenza B Not Detected (Not Detect); Mycoplasma pneumoniae Not Detected (Not Detect); Parainfluenza Virus 1 Not Detected (Not Detect); Parainfluenza Virus 2 Not Detected (Not Detect); Parainfluenza Virus 3 Not Detected (Not Detect); Parainfluenza Virus 4 Not Detected (Not Detect); Respiratory Syncytial Virus Not Detected (Not Detect); SARS-CoV-2 Not Detected (Not Detect)
[2021-08-29 11:31] VITALS: BP 128/72; PULSE 83; O2SAT 98
== END 2021-08-29 13:14 | disposition other institution (70) | DRG 391 ==
LOC: EMEROOARM 01:45 → 2ANU 01:45 → SUATTDRO 09:13 → 2ANU 10:05 → SUATTDRO 08-25 17:23 → 2ANU 08-27 20:58
PROVIDERS: ADMIT Student in an Organized Health Care Education/Training Program; ATTEND Hospitalist

== ENCOUNTER 2021-10-30 09:24 | Observation (INO) ==
[2021-10-30] MEDS ORDERED: 0.9 % Sodium Chloride 1,000 ML IVC ONE (09:29)
[2021-10-30 09:57] LABS: Basophils # 0.1 K/mcL (0.0-0.2); Basophils % 0.8 %; Eosinophils # 0.1 K/mcL (0.0-0.6); Hematocrit 38.8 % (35.3-44.9); Immature Granulocytes % 0.2 % (0-4); Lymphocytes # 1.1 K/mcL (0.6-4.6); Lymphocytes % 18.3 %; Mean Corpuscular HGB Conc 33.5 g/dL (31.6-35.5); Mean Corpuscular Volume 86.4 fL (83.0-100.0); Mean Platelet Volume 9.1 fL (9.4-12.4); Monocytes # 0.6 K/mcL (0.0-1.3); Monocytes % 10.3 %; Neutrophils # 4.1 K/mcL (1.6-8.9); Platelet Count 246 K/mcL (140-400); Red Blood Count 4.49 M/mcL (3.82-4.97); Segmented Neutrophils % 68.4 %
[2021-10-30 10:11] LABS: BUN/Creatinine Ratio 16 (6-26); Blood Urea Nitrogen 9 mg/dL (8-23); Calcium 9.2 mg/dL (8.6-10.3); Carbon Dioxide 26 mEq/L (23-29); Chloride 97 mEq/L (98-107); Creatine Kinase 67 Units/L (30-223); Glucose 99 mg/dL (70-105); Osmolality,Calculated 265 (280-300); Phosphorous 3.3 mg/dL (2.7-4.5); Potassium 3.4 mEq/L (3.5-5.1); Sodium 128 mEq/L (136-145); Troponin I < 0.03 ng/mL (< 0.04); eGFR For African Americans > 60 (> 60); eGFR For Non-African Americans > 60 (> 60)
[2021-10-30 10:16] LABS: Amorphous Sediment,Urine Few per hpf (None-Few); Bacteria,Urine Few per hpf (None-Few); Bilirubin,Urine Negative (Negative); Blood,Urine Large (Negative); Clarity,Urine Clear (Clear); Color,Urine Colorless (Yellow); Glucose,Urine (UA) Normal (Normal); Ketones,Urine Negative (Negative); Leukocyte Esterase,Urine Trace (Negative); Nitrite,Urine Negative (Negative); Protein,Urine Trace mg/dL (Neg-Trace); RBC,Urine 15-30 per hpf (0-3); Specific Gravity,Urine 1.006 (1.010-1.025); Squamous Epithelial Cell,Urine Few per hpf (None-Few); Urobilinogen,Urine Normal (Normal)
[2021-10-30 10:23] LABS: Thyroid Stimulating Hormone 1.441 mcIU/mL (0.340-5.600)
[2021-10-30] MEDS ORDERED: Isovue-370 500 ML BOTTLE IVP ONE (10:29)
[2021-10-30] MEDS ORDERED: methylPREDNISolone 125 MG/2 ML VIAL IVP ONE (10:30)
[2021-10-30 10:32] LABS: VBG Ionized Calcium 1.23 mmol/L (1.15-1.35)
[2021-10-30] MEDS ORDERED: Potassium Chloride Elixir 20 MEQ/15 ML UDC PO ONE (14:03)
[2021-10-30] MEDS ORDERED: Acetaminophen 325 MG TABLET PO PRN (15:02)
[2021-10-30] MEDS ORDERED: Melatonin 3 MG TABLET PO PRN (15:02)
[2021-10-30] MEDS ORDERED: Naloxone 0.4 MG/ML INJ IVP PRN (15:02)
[2021-10-30] MEDS ORDERED: cefTRIAXone 1,000 MG in 0.9 % Sodium Chloride Mini Bag 100 ML IVPB SCH (16:00)
[2021-10-30] MEDS ORDERED: cefTRIAXone 1,000 MG in Water for inj. (sterile) 10 ML IVP SCH (16:00)
[2021-10-30 16:17] LABS: Influenza A PCR Negative (Negative); Influenza B PCR Negative (Negative); Resp. Syncytial Virus PCR Negative (Negative)
[2021-10-30 16:18] LABS: SARS-CoV-2 by PCR (In House) Negative (Negative)
[2021-10-30] MEDS: 0.9 % Sodium Chloride 1,000 ML IVC SCH (17:16)
[2021-10-30] MEDS: *HR* Heparin 5,000 UNIT/ML VIAL SQ SCH (17:22)
[2021-10-30] MEDS ORDERED: GuaiFENesin Liq 200 MG/10 ML UDC PO PRN (20:22)
[2021-10-31 03:20] LABS: Basophils % 0.1 %; Hematocrit 34.5 % (35.3-44.9); Immature Granulocytes % 0.5 % (0-4); Lymphocytes # 0.7 K/mcL (0.6-4.6); Lymphocytes % 8.9 %; Mean Corpuscular HGB Conc 32.8 g/dL (31.6-35.5); Mean Corpuscular Hemoglobin 28.3 pg (28.0-33.3); Mean Corpuscular Volume 86.5 fL (83.0-100.0); Mean Platelet Volume 9.1 fL (9.4-12.4); Monocytes # 0.4 K/mcL (0.0-1.3); Monocytes % 5.6 %; Neutrophils # 6.2 K/mcL (1.6-8.9); Platelet Count 230 K/mcL (140-400); Red Blood Count 3.99 M/mcL (3.82-4.97); Red Cell Distribution Width 14.1 % (11.5-14.5); Segmented Neutrophils % 84.9 %; White Blood Count 7.3 K/mcL (4.3-11.1)
[2021-10-31 03:25] LABS: Hemoglobin 11.3 g/dL (11.5-15.4)
[2021-10-31] MEDS: 0.9 % Sodium Chloride 1,000 ML IVC SCH (03:31)
[2021-10-31 03:45] LABS: Alanine Aminotransferase 7 Units/L (7-52); Albumin 3.4 g/dL (3.5-5.7); Albumin/Globulin Ratio 1.4 (1.1-2.2); Alkaline Phosphatase 44 Units/L (34-104); Aspartate Amino Transferase 10 Units/L (13-39); BUN/Creatinine Ratio 28 (6-26); Bilirubin,Total 0.4 mg/dL (0.3-1.0); Blood Urea Nitrogen 14 mg/dL (8-23); Calcium 8.6 mg/dL (8.6-10.3); Carbon Dioxide 23 mEq/L (23-29); Chloride 104 mEq/L (98-107); Globulin 2.4 g/dL (2.4-3.5); Glucose 132 mg/dL (70-105); Osmolality,Calculated 270 (280-300); Potassium 3.7 mEq/L (3.5-5.1); Sodium 129 mEq/L (136-145); Total Protein 5.8 g/dL (6.4-8.9); eGFR For African Americans > 60 (> 60); eGFR For Non-African Americans > 60 (> 60)
[2021-10-31] MEDS: *HR* LORazepam 1 MG TABLET PO PRN ×2 (03:51→11:45)
[2021-10-31] MEDS: *HR* Heparin 5,000 UNIT/ML VIAL SQ SCH ×2 (05:02→17:24)
[2021-10-31] MEDS: Aspirin Enteric Coated 81 MG Tablet PO SCH (08:36)
[2021-10-31] MEDS ORDERED: Acetaminophen/Aspirin/Caffeine TABLET PO PRN (09:33)
[2021-10-31] MEDS ORDERED: polyethylene glycoL 3350 17 GM POWD.PACK PO PRN (11:43)
[2021-10-31] MEDS: amLODIPine 5 MG TABLET PO SCH (19:55)
[2021-11-01] MEDS: *HR* LORazepam 1 MG TABLET PO PRN (05:37)
[2021-11-01] MEDS: *HR* Heparin 5,000 UNIT/ML VIAL SQ SCH ×2 (05:38→15:55)
[2021-11-01] MEDS: Aspirin Enteric Coated 81 MG Tablet PO SCH (10:23)
[2021-11-01] MEDS: valACYclovir 500 MG TABLET PO SCH (10:23)
[2021-11-01] MEDS: amLODIPine 5 MG TABLET PO SCH ×2 (10:23→20:26)
[2021-11-01] MEDS: *HR* LORazepam 1 MG TABLET PO SCH ×2 (12:56→20:26)
[2021-11-01] MEDS: Sennosides/Docusate Sodium TABLET PO SCH (12:56)
[2021-11-01] MEDS: cefTRIAXone 1,000 MG in 0.9 % Sodium Chloride Mini Bag 100 ML IVPB SCH (12:56)
[2021-11-01 18:12] LABS: BUN/Creatinine Ratio 19 (6-26); Blood Urea Nitrogen 10 mg/dL (8-23); Carbon Dioxide 21 mEq/L (23-29); Chloride 101 mEq/L (98-107); Glucose 91 mg/dL (70-105); Osmolality,Calculated 285 (280-300); Potassium 3.6 mEq/L (3.5-5.1); Sodium 138 mEq/L (136-145); eGFR For African Americans > 60 (> 60); eGFR For Non-African Americans > 60 (> 60)
[2021-11-02] MEDS ORDERED: 0.9 % Sodium Chloride 1,000 ML IV ONE (03:49)
[2021-11-02] MEDS: *HR* Heparin 5,000 UNIT/ML VIAL SQ SCH ×2 (04:56→12:57)
[2021-11-02 05:42] LABS: BUN/Creatinine Ratio 25 (6-26); Blood Urea Nitrogen 13 mg/dL (8-23); Carbon Dioxide 26 mEq/L (23-29); Chloride 97 mEq/L (98-107); Glucose 107 mg/dL (70-105); Osmolality,Calculated 269 (280-300); Potassium 3.8 mEq/L (3.5-5.1); Sodium 129 mEq/L (136-145); eGFR For African Americans > 60 (> 60); eGFR For Non-African Americans > 60 (> 60)
[2021-11-02] MEDS: cefTRIAXone 1,000 MG in 0.9 % Sodium Chloride Mini Bag 100 ML IVPB SCH (09:09)
[2021-11-02] MEDS: amLODIPine 5 MG TABLET PO SCH ×2 (09:16→21:08)
[2021-11-02] MEDS: *HR* LORazepam 1 MG TABLET PO SCH ×2 (09:16→21:03)
[2021-11-02] MEDS: Sennosides/Docusate Sodium TABLET PO SCH (09:17)
[2021-11-02] MEDS: Aspirin Enteric Coated 81 MG Tablet PO SCH (09:17)
[2021-11-02] MEDS: valACYclovir 500 MG TABLET PO SCH (09:25)
[2021-11-02] MEDS: Sucralfate 1 GM TABLET PO PRN (21:01)
[2021-11-03] MEDS: *HR* Heparin 5,000 UNIT/ML VIAL SQ SCH ×2 (05:25→16:12)
[2021-11-03] MEDS: *HR* LORazepam 1 MG TABLET PO SCH ×2 (07:14→20:55)
[2021-11-03] MEDS: Aspirin Enteric Coated 81 MG Tablet PO SCH (07:14)
[2021-11-03] MEDS: Sennosides/Docusate Sodium TABLET PO SCH ×2 (07:14→07:25)
[2021-11-03] MEDS: Sucralfate 1 GM TABLET PO PRN (07:14)
[2021-11-03] MEDS: amLODIPine 5 MG TABLET PO SCH ×2 (07:14→20:56)
[2021-11-03] MEDS: valACYclovir 500 MG TABLET PO SCH (07:26)
[2021-11-03] MEDS: Loratadine 10 MG TABLET PO SCH (07:26)
[2021-11-03] MEDS: Cyanocobalamin (B-12) 1,000 MCG TABLET PO SCH (07:26)
[2021-11-04] MEDS: *HR* Heparin 5,000 UNIT/ML VIAL SQ SCH ×2 (05:58→18:34)
[2021-11-04] MEDS: Loratadine 10 MG TABLET PO SCH (08:24)
[2021-11-04] MEDS: Aspirin Enteric Coated 81 MG Tablet PO SCH (08:24)
[2021-11-04] MEDS: Cyanocobalamin (B-12) 1,000 MCG TABLET PO SCH (08:25)
[2021-11-04] MEDS: amLODIPine 5 MG TABLET PO SCH ×2 (08:25→21:26)
[2021-11-04] MEDS: *HR* LORazepam 1 MG TABLET PO SCH ×2 (08:25→21:25)
[2021-11-04] MEDS: Sennosides/Docusate Sodium TABLET PO SCH (08:26)
[2021-11-04] MEDS: valACYclovir 500 MG TABLET PO SCH (08:28)
[2021-11-05 01:25] LABS: Basophils % 0.5 %; Eosinophils # 0.4 K/mcL (0.0-0.6); Hemoglobin 10.4 g/dL (11.5-15.4); Immature Granulocytes % 0.3 % (0-4); Lymphocytes # 1.7 K/mcL (0.6-4.6); Lymphocytes % 22.4 %; Mean Corpuscular HGB Conc 33.5 g/dL (31.6-35.5); Mean Corpuscular Hemoglobin 29.1 pg (28.0-33.3); Mean Corpuscular Volume 86.8 fL (83.0-100.0); Mean Platelet Volume 9.4 fL (9.4-12.4); Monocytes # 0.8 K/mcL (0.0-1.3); Monocytes % 10.2 %; Neutrophils # 4.7 K/mcL (1.6-8.9); Platelet Count 209 K/mcL (140-400); Red Blood Count 3.57 M/mcL (3.82-4.97); Segmented Neutrophils % 61.6 %; White Blood Count 7.6 K/mcL (4.3-11.1)
[2021-11-05 01:42] LABS: BUN/Creatinine Ratio 23 (6-26); Blood Urea Nitrogen 12 mg/dL (8-23); Calcium 8.6 mg/dL (8.6-10.3); Carbon Dioxide 27 mEq/L (23-29); Chloride 97 mEq/L (98-107); Glucose 108 mg/dL (70-105); Osmolality,Calculated 268 (280-300); Potassium 3.9 mEq/L (3.5-5.1); Sodium 129 mEq/L (136-145); eGFR For African Americans > 60 (> 60); eGFR For Non-African Americans > 60 (> 60)
[2021-11-05] MEDS: *HR* Heparin 5,000 UNIT/ML VIAL SQ SCH ×2 (04:48→18:27)
[2021-11-05] MEDS: Aspirin Enteric Coated 81 MG Tablet PO SCH (08:12)
[2021-11-05] MEDS: Cyanocobalamin (B-12) 1,000 MCG TABLET PO SCH (08:12)
[2021-11-05] MEDS: Loratadine 10 MG TABLET PO SCH (08:12)
[2021-11-05] MEDS: Sennosides/Docusate Sodium TABLET PO SCH (08:12)
[2021-11-05] MEDS: *HR* LORazepam 1 MG TABLET PO SCH ×2 (08:13→21:23)
[2021-11-05] MEDS: amLODIPine 5 MG TABLET PO SCH ×2 (08:13→21:23)
[2021-11-05] MEDS: valACYclovir 500 MG TABLET PO SCH (08:14)
[2021-11-06] MEDS: *HR* Heparin 5,000 UNIT/ML VIAL SQ SCH ×2 (05:01→18:10)
[2021-11-06] MEDS: Loratadine 10 MG TABLET PO SCH (09:48)
[2021-11-06] MEDS: Aspirin Enteric Coated 81 MG Tablet PO SCH (09:48)
[2021-11-06] MEDS: *HR* LORazepam 1 MG TABLET PO SCH ×2 (09:48→21:08)
[2021-11-06] MEDS: valACYclovir 500 MG TABLET PO SCH (09:48)
[2021-11-06] MEDS: amLODIPine 5 MG TABLET PO SCH ×2 (09:49→21:09)
[2021-11-06] MEDS: Sennosides/Docusate Sodium TABLET PO SCH (10:05)
[2021-11-06] MEDS: Cyanocobalamin (B-12) 1,000 MCG TABLET PO SCH (10:47)
[2021-11-07] MEDS: *HR* Heparin 5,000 UNIT/ML VIAL SQ SCH (05:02)
[2021-11-07] MEDS: Loratadine 10 MG TABLET PO SCH (09:51)
[2021-11-07] MEDS: Aspirin Enteric Coated 81 MG Tablet PO SCH (09:51)
[2021-11-07] MEDS: valACYclovir 500 MG TABLET PO SCH (09:52)
[2021-11-07] MEDS: Sennosides/Docusate Sodium TABLET PO SCH (09:52)
[2021-11-07] MEDS: amLODIPine 5 MG TABLET PO SCH (09:52)
[2021-11-07] MEDS: Cyanocobalamin (B-12) 1,000 MCG TABLET PO SCH (09:52)
[2021-11-07] MEDS: *HR* LORazepam 1 MG TABLET PO SCH (09:53)
[2021-11-07 14:10] VITALS: BP 120/55; PULSE 96; TEMP 98.2; O2SAT 96
[2021-11-07 16:02] LABS: Influenza A PCR Negative (Negative); Influenza B PCR Negative (Negative); Resp. Syncytial Virus PCR Negative (Negative); SARS-CoV-2 by PCR (In House) Negative (Negative)
== END 2021-11-07 17:32 | disposition other institution (70) ==
LOC: EMEROOARM 09:24 → 3BNU 09:24 → SUATTDRO 14:30 → 3BNU 17:10
PROVIDERS: ADMIT Internal Medicine; ATTEND Registered Nurse

== ENCOUNTER 2022-03-26 14:27 | Inpatient (IN) ==
[2022-03-26] MEDS ORDERED: Isovue-370 500 ML BOTTLE IVP ONE (15:18)
[2022-03-26] MEDS ORDERED: 0.9 % Sodium Chloride 500 ML IVC ONE (15:18)
[2022-03-26] MEDS ORDERED: *HR* LORazepam 2 MG/ML VIAL IVP ONE (15:29)
[2022-03-26 16:08] LABS: Basophils % 0.6 %; Eosinophils # 0.1 K/mcL (0.0-0.6); Eosinophils % 0.8 %; Hematocrit 39.2 % (35.3-44.9); Hemoglobin 13.4 g/dL (11.5-15.4); Immature Granulocytes % 0.3 % (0-4); Lymphocytes # 1.2 K/mcL (0.6-4.6); Mean Corpuscular HGB Conc 34.2 g/dL (31.6-35.5); Mean Corpuscular Volume 84.8 fL (83.0-100.0); Mean Platelet Volume 8.6 fL (9.4-12.4); Monocytes # 0.5 K/mcL (0.0-1.3); Monocytes % 8.3 %; Neutrophils # 4.6 K/mcL (1.6-8.9); Platelet Count 240 K/mcL (140-400); Red Blood Count 4.62 M/mcL (3.82-4.97); Red Cell Distribution Width 13.2 % (11.5-14.5); White Blood Count 6.5 K/mcL (4.3-11.1)
[2022-03-26 16:23] LABS: Alanine Aminotransferase 9 Units/L (7-52); Albumin 4.4 g/dL (3.5-5.7); Albumin/Globulin Ratio 1.5 (1.1-2.2); Alkaline Phosphatase 64 Units/L (34-104); Aspartate Amino Transferase 13 Units/L (13-39); BUN/Creatinine Ratio 13 (6-26); Bilirubin,Total 0.5 mg/dL (0.3-1.0); Blood Urea Nitrogen 7 mg/dL (8-23); Calcium 9.6 mg/dL (8.6-10.3); Carbon Dioxide 29 mEq/L (23-29); Chloride 95 mEq/L (98-107); Globulin 2.9 g/dL (2.4-3.5); Glucose 106 mg/dL (70-105); Osmolality,Calculated 268 (280-300); Potassium 3.4 mEq/L (3.5-5.1); Sodium 130 mEq/L (136-145); Total Protein 7.3 g/dL (6.4-8.9); eGFR For African Americans > 60 (> 60); eGFR For Non-African Americans > 60 (> 60)
[2022-03-26 16:27] LABS: C-Reactive Protein 8 mg/L (Less than 10)
[2022-03-26] MEDS ORDERED: Naloxone 0.4 MG/ML INJ IVP PRN (17:21)
[2022-03-26] MEDS ORDERED: Melatonin 3 MG TABLET PO PRN (17:21)
[2022-03-26] MEDS ORDERED: Ondansetron 4 MG/2 ML VIAL IVP PRN (17:21)
[2022-03-26] MEDS ORDERED: Potassium Chloride Elixir 20 MEQ/15 ML UDC PO ONE (19:48)
[2022-03-26] MEDS: Budesonide/Formoterol 160/4.5 1 PUFF INH IH SCH (20:02)
[2022-03-27 05:13] LABS: Basophils % 0.7 %; Eosinophils # 0.2 K/mcL (0.0-0.6); Eosinophils % 3.7 %; Hematocrit 34.9 % (35.3-44.9); Hemoglobin 11.9 g/dL (11.5-15.4); Immature Granulocytes % 0.2 % (0-4); Lymphocytes # 1.1 K/mcL (0.6-4.6); Lymphocytes % 18.8 %; Mean Corpuscular HGB Conc 34.1 g/dL (31.6-35.5); Mean Corpuscular Hemoglobin 29.2 pg (28.0-33.3); Mean Corpuscular Volume 85.7 fL (83.0-100.0); Mean Platelet Volume 8.7 fL (9.4-12.4); Monocytes # 0.8 K/mcL (0.0-1.3); Monocytes % 14.4 %; Neutrophils # 3.5 K/mcL (1.6-8.9); Platelet Count 225 K/mcL (140-400); Red Blood Count 4.07 M/mcL (3.82-4.97); Red Cell Distribution Width 13.2 % (11.5-14.5); Segmented Neutrophils % 62.2 %; White Blood Count 5.7 K/mcL (4.3-11.1)
[2022-03-27 05:32] LABS: BUN/Creatinine Ratio 18 (6-26); Blood Urea Nitrogen 10 mg/dL (8-23); Carbon Dioxide 26 mEq/L (23-29); Chloride 102 mEq/L (98-107); Glucose 98 mg/dL (70-105); Magnesium 2.1 mg/dL (1.6-2.6); Osmolality,Calculated 275 (280-300); Sodium 133 mEq/L (136-145); eGFR For African Americans > 60 (> 60); eGFR For Non-African Americans > 60 (> 60)
[2022-03-27] MEDS: *HR* Enoxaparin 40 MG/0.4 ML SYRINGE SQ SCH (05:46)
[2022-03-27] MEDS: Budesonide/Formoterol 160/4.5 1 PUFF INH IH SCH ×2 (08:16→19:53)
[2022-03-27] MEDS: amLODIPine 5 MG TABLET PO SCH (08:36)
[2022-03-27] MEDS ORDERED: Nystatin Ointment 15 GM TUBE TP PRN (09:13)
[2022-03-27] MEDS ORDERED: valACYclovir 500 MG TABLET PO PRN (09:13)
[2022-03-27] MEDS: Aspirin Enteric Coated 81 MG Tablet PO SCH (09:55)
[2022-03-27] MEDS: *HR* LORazepam 1 MG TABLET PO PRN ×2 (09:55→20:50)
[2022-03-27] MEDS: Cyclosporine [Restasis Multidose] 5.5 ML Drops OP SCH (21:28)
[2022-03-27] MEDS: Linezolid 600 MG TABLET PO SCH (21:29)
[2022-03-28] MEDS: *HR* Enoxaparin 40 MG/0.4 ML SYRINGE SQ SCH (04:33)
[2022-03-28 05:23] LABS: Basophils # 0.1 K/mcL (0.0-0.2); Basophils % 0.8 %; Eosinophils # 0.2 K/mcL (0.0-0.6); Eosinophils % 3.2 %; Hematocrit 34.3 % (35.3-44.9); Hemoglobin 11.8 g/dL (11.5-15.4); Immature Granulocytes % 0.3 % (0-4); Lymphocytes # 1.2 K/mcL (0.6-4.6); Lymphocytes % 19.3 %; Mean Corpuscular HGB Conc 34.4 g/dL (31.6-35.5); Mean Corpuscular Hemoglobin 29.6 pg (28.0-33.3); Mean Platelet Volume 8.9 fL (9.4-12.4); Monocytes # 0.7 K/mcL (0.0-1.3); Monocytes % 11.1 %; Neutrophils # 4.1 K/mcL (1.6-8.9); Platelet Count 231 K/mcL (140-400); Red Blood Count 3.99 M/mcL (3.82-4.97); Red Cell Distribution Width 13.1 % (11.5-14.5); Segmented Neutrophils % 65.3 %; White Blood Count 6.3 K/mcL (4.3-11.1)
[2022-03-28 05:44] LABS: BUN/Creatinine Ratio 22 (6-26); Blood Urea Nitrogen 14 mg/dL (8-23); Calcium 9.1 mg/dL (8.6-10.3); Carbon Dioxide 27 mEq/L (23-29); Chloride 95 mEq/L (98-107); Glucose 113 mg/dL (70-105); Osmolality,Calculated 267 (280-300); Potassium 3.9 mEq/L (3.5-5.1); Sodium 128 mEq/L (136-145); eGFR For African Americans > 60 (> 60); eGFR For Non-African Americans > 60 (> 60)
[2022-03-28] MEDS: Aspirin Enteric Coated 81 MG Tablet PO SCH (07:53)
[2022-03-28] MEDS: Linezolid 600 MG TABLET PO SCH ×2 (07:53→21:13)
[2022-03-28] MEDS: Cyanocobalamin (B-12) 1,000 MCG TABLET PO SCH (07:53)
[2022-03-28] MEDS: Loratadine 10 MG TABLET PO SCH (07:53)
[2022-03-28] MEDS: amLODIPine 5 MG TABLET PO SCH (07:53)
[2022-03-28] MEDS: Cyclosporine [Restasis Multidose] 5.5 ML Drops OP SCH ×2 (07:54→21:14)
[2022-03-28] MEDS: Budesonide/Formoterol 160/4.5 1 PUFF INH IH SCH ×2 (09:57→20:30)
[2022-03-28] MEDS: *HR* LORazepam 1 MG TABLET PO PRN (10:55)
[2022-03-29] MEDS: *HR* LORazepam 1 MG TABLET PO PRN ×2 (02:29→14:41)
[2022-03-29 03:09] LABS: Basophils % 0.5 %; Eosinophils # 0.1 K/mcL (0.0-0.6); Eosinophils % 1.7 %; Hematocrit 36.4 % (35.3-44.9); Hemoglobin 12.6 g/dL (11.5-15.4); Immature Granulocytes % 0.2 % (0-4); Lymphocytes # 1.4 K/mcL (0.6-4.6); Lymphocytes % 16.7 %; Mean Corpuscular HGB Conc 34.6 g/dL (31.6-35.5); Mean Corpuscular Hemoglobin 29.2 pg (28.0-33.3); Mean Corpuscular Volume 84.5 fL (83.0-100.0); Mean Platelet Volume 8.9 fL (9.4-12.4); Monocytes # 0.9 K/mcL (0.0-1.3); Monocytes % 10.8 %; Neutrophils # 5.8 K/mcL (1.6-8.9); Platelet Count 257 K/mcL (140-400); Red Blood Count 4.31 M/mcL (3.82-4.97); Red Cell Distribution Width 12.8 % (11.5-14.5); Segmented Neutrophils % 70.1 %; White Blood Count 8.3 K/mcL (4.3-11.1)
[2022-03-29 03:29] LABS: BUN/Creatinine Ratio 21 (6-26); Blood Urea Nitrogen 10 mg/dL (8-23); Calcium 9.1 mg/dL (8.6-10.3); Carbon Dioxide 27 mEq/L (23-29); Chloride 91 mEq/L (98-107); Glucose 117 mg/dL (70-105); Osmolality,Calculated 260 (280-300); Potassium 3.6 mEq/L (3.5-5.1); Sodium 125 mEq/L (136-145); eGFR For African Americans > 60 (> 60); eGFR For Non-African Americans > 60 (> 60)
[2022-03-29] MEDS: *HR* Enoxaparin 40 MG/0.4 ML SYRINGE SQ SCH (06:31)
[2022-03-29] MEDS: Cyclosporine [Restasis Multidose] 5.5 ML Drops OP SCH ×2 (08:05→21:15)
[2022-03-29] MEDS: Cyanocobalamin (B-12) 1,000 MCG TABLET PO SCH (08:49)
[2022-03-29] MEDS: Aspirin Enteric Coated 81 MG Tablet PO SCH (08:49)
[2022-03-29] MEDS: Linezolid 600 MG TABLET PO SCH ×2 (08:49→21:13)
[2022-03-29] MEDS: Loratadine 10 MG TABLET PO SCH (08:49)
[2022-03-29] MEDS: amLODIPine 5 MG TABLET PO SCH (08:51)
[2022-03-29] MEDS: Budesonide/Formoterol 160/4.5 1 PUFF INH IH SCH ×2 (10:54→20:06)
[2022-03-29 15:28] LABS: BUN/Creatinine Ratio 22 (6-26); Blood Urea Nitrogen 11 mg/dL (8-23); Calcium 9.2 mg/dL (8.6-10.3); Carbon Dioxide 24 mEq/L (23-29); Chloride 89 mEq/L (98-107); Glucose 147 mg/dL (70-105); Osmolality,Calculated 254 (280-300); Potassium 3.6 mEq/L (3.5-5.1); Sodium 121 mEq/L (136-145); eGFR For African Americans > 60 (> 60); eGFR For Non-African Americans > 60 (> 60)
[2022-03-29 17:14] LABS: Sodium, Urine 22.9 mEq/L
[2022-03-29] MEDS: 0.9 % Sodium Chloride 1,000 ML IVC SCH (21:14)
[2022-03-30 01:34] LABS: Basophils % 0.5 %; Eosinophils # 0.1 K/mcL (0.0-0.6); Eosinophils % 1.4 %; Hematocrit 34.8 % (35.3-44.9); Hemoglobin 12.1 g/dL (11.5-15.4); Immature Granulocytes % 0.5 % (0-4); Lymphocytes # 1.7 K/mcL (0.6-4.6); Lymphocytes % 21.8 %; Mean Corpuscular HGB Conc 34.8 g/dL (31.6-35.5); Mean Corpuscular Hemoglobin 29.4 pg (28.0-33.3); Mean Corpuscular Volume 84.7 fL (83.0-100.0); Mean Platelet Volume 8.9 fL (9.4-12.4); Monocytes % 12.9 %; Platelet Count 247 K/mcL (140-400); Red Blood Count 4.11 M/mcL (3.82-4.97); Red Cell Distribution Width 12.9 % (11.5-14.5); Segmented Neutrophils % 62.9 %; White Blood Count 7.9 K/mcL (4.3-11.1)
[2022-03-30 01:56] LABS: BUN/Creatinine Ratio 26 (6-26); Blood Urea Nitrogen 14 mg/dL (8-23); Calcium 8.8 mg/dL (8.6-10.3); Carbon Dioxide 27 mEq/L (23-29); Chloride 89 mEq/L (98-107); Glucose 100 mg/dL (70-105); Osmolality,Calculated 253 (280-300); Sodium 121 mEq/L (136-145); eGFR For African Americans > 60 (> 60); eGFR For Non-African Americans > 60 (> 60)
[2022-03-30] MEDS: *HR* Enoxaparin 40 MG/0.4 ML SYRINGE SQ SCH (05:18)
[2022-03-30] MEDS: Loratadine 10 MG TABLET PO SCH (08:00)
[2022-03-30] MEDS: *HR* LORazepam 1 MG TABLET PO PRN ×2 (08:00→23:16)
[2022-03-30] MEDS: 0.9 % Sodium Chloride 1,000 ML IVC SCH ×3 (08:00→16:31)
[2022-03-30] MEDS: Linezolid 600 MG TABLET PO SCH (08:00)
[2022-03-30] MEDS: amLODIPine 5 MG TABLET PO SCH (08:00)
[2022-03-30] MEDS: Cyanocobalamin (B-12) 1,000 MCG TABLET PO SCH (08:00)
[2022-03-30] MEDS: Aspirin Enteric Coated 81 MG Tablet PO SCH (08:00)
[2022-03-30] MEDS: Cyclosporine [Restasis Multidose] 5.5 ML Drops OP SCH ×2 (08:09→20:41)
[2022-03-30] MEDS ORDERED: 0.9 % Sodium Chloride 500 ML IVC ONE ×2 (08:41→11:02)
[2022-03-30 09:43] LABS: BUN/Creatinine Ratio 19 (6-26); Blood Urea Nitrogen 10 mg/dL (8-23); Calcium 8.5 mg/dL (8.6-10.3); Carbon Dioxide 26 mEq/L (23-29); Chloride 93 mEq/L (98-107); Glucose 160 mg/dL (70-105); Osmolality,Calculated 256 (280-300); Potassium 3.6 mEq/L (3.5-5.1); Sodium 122 mEq/L (136-145); eGFR For African Americans > 60 (> 60); eGFR For Non-African Americans > 60 (> 60)
[2022-03-30] MEDS: Budesonide/Formoterol 160/4.5 1 PUFF INH IH SCH ×2 (10:39→20:08)
[2022-03-30 17:11] LABS: BUN/Creatinine Ratio 20 (6-26); Blood Urea Nitrogen 10 mg/dL (8-23); Calcium 7.9 mg/dL (8.6-10.3); Carbon Dioxide 24 mEq/L (23-29); Chloride 100 mEq/L (98-107); Glucose 115 mg/dL (70-105); Osmolality,Calculated 264 (280-300); Potassium 3.8 mEq/L (3.5-5.1); Sodium 127 mEq/L (136-145); eGFR For African Americans > 60 (> 60); eGFR For Non-African Americans > 60 (> 60)
[2022-03-30 21:27] LABS: BUN/Creatinine Ratio 23 (6-26); Blood Urea Nitrogen 12 mg/dL (8-23); Calcium 8.1 mg/dL (8.6-10.3); Carbon Dioxide 24 mEq/L (23-29); Chloride 101 mEq/L (98-107); Glucose 123 mg/dL (70-105); Osmolality,Calculated 269 (280-300); Potassium 3.9 mEq/L (3.5-5.1); Sodium 129 mEq/L (136-145); eGFR For African Americans > 60 (> 60); eGFR For Non-African Americans > 60 (> 60)
[2022-03-31 01:51] LABS: Basophils % 0.5 %; Eosinophils # 0.1 K/mcL (0.0-0.6); Eosinophils % 1.6 %; Hematocrit 29.4 % (35.3-44.9); Immature Granulocytes % 0.3 % (0-4); Lymphocytes # 1.3 K/mcL (0.6-4.6); Lymphocytes % 22.8 %; Mean Corpuscular Hemoglobin 29.5 pg (28.0-33.3); Mean Corpuscular Volume 86.7 fL (83.0-100.0); Mean Platelet Volume 9.1 fL (9.4-12.4); Monocytes # 0.8 K/mcL (0.0-1.3); Monocytes % 14.1 %; Neutrophils # 3.5 K/mcL (1.6-8.9); Platelet Count 196 K/mcL (140-400); Red Blood Count 3.39 M/mcL (3.82-4.97); Red Cell Distribution Width 13.2 % (11.5-14.5); Segmented Neutrophils % 60.7 %; White Blood Count 5.8 K/mcL (4.3-11.1)
[2022-03-31 02:08] LABS: BUN/Creatinine Ratio 30 (6-26); Blood Urea Nitrogen 13 mg/dL (8-23); Calcium 7.8 mg/dL (8.6-10.3); Carbon Dioxide 24 mEq/L (23-29); Chloride 102 mEq/L (98-107); Glucose 108 mg/dL (70-105); Osmolality,Calculated 271 (280-300); Potassium 3.9 mEq/L (3.5-5.1); Sodium 130 mEq/L (136-145); eGFR For African Americans > 60 (> 60); eGFR For Non-African Americans > 60 (> 60)
[2022-03-31] MEDS ORDERED: 0.9 % Sodium Chloride 1,000 ML IVC SCH (04:06)
[2022-03-31] MEDS: 0.9 % Sodium Chloride 1,000 ML IVC SCH (04:13)
[2022-03-31] MEDS: *HR* Enoxaparin 40 MG/0.4 ML SYRINGE SQ SCH (06:12)
[2022-03-31 06:37] LABS: BUN/Creatinine Ratio 30 (6-26); Blood Urea Nitrogen 15 mg/dL (8-23); Calcium 7.9 mg/dL (8.6-10.3); Carbon Dioxide 25 mEq/L (23-29); Chloride 102 mEq/L (98-107); Glucose 96 mg/dL (70-105); Osmolality,Calculated 269 (280-300); Potassium 3.9 mEq/L (3.5-5.1); Sodium 129 mEq/L (136-145); eGFR For African Americans > 60 (> 60); eGFR For Non-African Americans > 60 (> 60)
[2022-03-31] MEDS: Loratadine 10 MG TABLET PO SCH (07:48)
[2022-03-31] MEDS: Cyclosporine [Restasis Multidose] 5.5 ML Drops OP SCH ×2 (07:49→21:00)
[2022-03-31] MEDS: Aspirin Enteric Coated 81 MG Tablet PO SCH (07:49)
[2022-03-31] MEDS: amLODIPine 5 MG TABLET PO SCH (07:49)
[2022-03-31] MEDS: Cyanocobalamin (B-12) 1,000 MCG TABLET PO SCH (07:49)
[2022-03-31] MEDS: Budesonide/Formoterol 160/4.5 1 PUFF INH IH SCH ×2 (07:53→20:05)
[2022-03-31] MEDS: *HR* LORazepam 1 MG TABLET PO PRN (10:35)
[2022-03-31] MEDS: GuaiFENesin Liq 200 MG/10 ML UDC PO PRN ×2 (11:22→21:03)
[2022-03-31] MEDS ORDERED: Menthol 1 EACH LOZENGE PO PRN (22:39)
[2022-04-01 00:36] LABS: Basophils # 0.1 K/mcL (0.0-0.2); Basophils % 0.5 %; Eosinophils # 0.2 K/mcL (0.0-0.6); Eosinophils % 1.7 %; Hematocrit 33.4 % (35.3-44.9); Immature Granulocytes % 0.4 % (0-4); Lymphocytes # 1.8 K/mcL (0.6-4.6); Lymphocytes % 18.4 %; Mean Corpuscular HGB Conc 34.7 g/dL (31.6-35.5); Mean Corpuscular Volume 86.3 fL (83.0-100.0); Mean Platelet Volume 9.1 fL (9.4-12.4); Monocytes % 10.4 %; Neutrophils # 6.7 K/mcL (1.6-8.9); Platelet Count 204 K/mcL (140-400); Red Blood Count 3.87 M/mcL (3.82-4.97); Red Cell Distribution Width 13.3 % (11.5-14.5); Segmented Neutrophils % 68.6 %
[2022-04-01 00:45] LABS: Hemoglobin 11.6 g/dL (11.5-15.4); White Blood Count 9.8 K/mcL (4.3-11.1)
[2022-04-01 00:56] LABS: Alanine Aminotransferase 11 Units/L (7-52); Albumin 3.5 g/dL (3.5-5.7); Albumin/Globulin Ratio 1.5 (1.1-2.2); Alkaline Phosphatase 49 Units/L (34-104); Aspartate Amino Transferase 15 Units/L (13-39); BUN/Creatinine Ratio 27 (6-26); Bilirubin,Total 0.3 mg/dL (0.3-1.0); Blood Urea Nitrogen 15 mg/dL (8-23); Calcium 8.9 mg/dL (8.6-10.3); Carbon Dioxide 26 mEq/L (23-29); Chloride 97 mEq/L (98-107); Globulin 2.4 g/dL (2.4-3.5); Glucose 103 mg/dL (70-105); Osmolality,Calculated 267 (280-300); Potassium 3.8 mEq/L (3.5-5.1); Sodium 128 mEq/L (136-145); Total Protein 5.9 g/dL (6.4-8.9); eGFR For African Americans > 60 (> 60); eGFR For Non-African Americans > 60 (> 60)
[2022-04-01] MEDS: *HR* Enoxaparin 40 MG/0.4 ML SYRINGE SQ SCH (05:20)
[2022-04-01] MEDS: Budesonide/Formoterol 160/4.5 1 PUFF INH IH SCH ×2 (07:35→22:09)
[2022-04-01] MEDS: GuaiFENesin Liq 200 MG/10 ML UDC PO PRN (09:26)
[2022-04-01] MEDS: amLODIPine 5 MG TABLET PO SCH (09:27)
[2022-04-01] MEDS: Loratadine 10 MG TABLET PO SCH (09:27)
[2022-04-01] MEDS: *HR* LORazepam 1 MG TABLET PO PRN ×2 (09:27→22:33)
[2022-04-01] MEDS: Cyanocobalamin (B-12) 1,000 MCG TABLET PO SCH (09:27)
[2022-04-01] MEDS: Cyclosporine [Restasis Multidose] 5.5 ML Drops OP SCH ×2 (09:28→20:40)
[2022-04-01] MEDS: Aspirin Enteric Coated 81 MG Tablet PO SCH (09:28)
[2022-04-01 23:00] VITALS: TEMP 97.5
[2022-04-02] MEDS: *HR* Enoxaparin 40 MG/0.4 ML SYRINGE SQ SCH (05:26)
[2022-04-02 06:23] LABS: Basophils % 0.6 %; Eosinophils # 0.2 K/mcL (0.0-0.6); Eosinophils % 2.3 %; Hematocrit 34.1 % (35.3-44.9); Hemoglobin 11.4 g/dL (11.5-15.4); Immature Granulocytes % 0.3 % (0-4); Lymphocytes # 1.3 K/mcL (0.6-4.6); Lymphocytes % 19.6 %; Mean Corpuscular HGB Conc 33.4 g/dL (31.6-35.5); Mean Corpuscular Hemoglobin 28.8 pg (28.0-33.3); Mean Corpuscular Volume 86.1 fL (83.0-100.0); Mean Platelet Volume 9.1 fL (9.4-12.4); Monocytes # 0.8 K/mcL (0.0-1.3); Neutrophils # 4.2 K/mcL (1.6-8.9); Platelet Count 198 K/mcL (140-400); Red Blood Count 3.96 M/mcL (3.82-4.97); Red Cell Distribution Width 13.4 % (11.5-14.5); Segmented Neutrophils % 65.2 %; White Blood Count 6.4 K/mcL (4.3-11.1)
[2022-04-02 06:58] LABS: Alanine Aminotransferase 13 Units/L (7-52); Albumin 3.6 g/dL (3.5-5.7); Albumin/Globulin Ratio 1.6 (1.1-2.2); Alkaline Phosphatase 48 Units/L (34-104); Aspartate Amino Transferase 15 Units/L (13-39); BUN/Creatinine Ratio 21 (6-26); Bilirubin,Total 0.5 mg/dL (0.3-1.0); Blood Urea Nitrogen 11 mg/dL (8-23); Calcium 8.6 mg/dL (8.6-10.3); Carbon Dioxide 28 mEq/L (23-29); Chloride 97 mEq/L (98-107); Globulin 2.2 g/dL (2.4-3.5); Glucose 95 mg/dL (70-105); Osmolality,Calculated 269 (280-300); Potassium 3.8 mEq/L (3.5-5.1); Sodium 130 mEq/L (136-145); Total Protein 5.8 g/dL (6.4-8.9); eGFR For African Americans > 60 (> 60); eGFR For Non-African Americans > 60 (> 60)
[2022-04-02 07:11] VITALS: BP 166/75; PULSE 84; O2SAT 99
[2022-04-02] MEDS: Budesonide/Formoterol 160/4.5 1 PUFF INH IH SCH (07:49)
[2022-04-02] MEDS: Loratadine 10 MG TABLET PO SCH (08:21)
[2022-04-02] MEDS: Cyanocobalamin (B-12) 1,000 MCG TABLET PO SCH (08:22)
[2022-04-02] MEDS: *HR* LORazepam 1 MG TABLET PO PRN (08:22)
[2022-04-02] MEDS: Aspirin Enteric Coated 81 MG Tablet PO SCH (08:22)
[2022-04-02] MEDS: Cyclosporine [Restasis Multidose] 5.5 ML Drops OP SCH (08:23)
[2022-04-02] MEDS ORDERED: amLODIPine 5 MG TABLET PO SCH (09:00)
[2022-04-02 10:28] LABS: Influenza A PCR Negative (Negative); Influenza B PCR Negative (Negative); Resp. Syncytial Virus PCR Negative (Negative)
[2022-04-02 10:38] LABS: SARS-CoV-2 by PCR (In House) Negative (Negative)
== END 2022-04-02 11:36 | disposition other institution (70) | DRG 863 ==
LOC: EMEROOARM 14:27 → 3BNU 14:27 → SUATTDRO 17:21 → 3BNU 18:10
PROVIDERS: ADMIT Hospitalist; ATTEND Nurse Practitioner

== ENCOUNTER 2022-04-16 13:53 | Inpatient (IN) ==
[2022-04-16] MEDS ORDERED: methylPREDNISolone 125 MG/2 ML VIAL IVP ONE (15:10)
[2022-04-16] MEDS ORDERED: Iopamidol - 370 500 ML MLS IVP ONE (15:14)
[2022-04-16 15:59] LABS: Basophils % 0.4 %; Eosinophils # 0.1 K/mcL (0.0-0.6); Eosinophils % 0.9 %; Hematocrit 34.5 % (35.3-44.9); Hemoglobin 11.8 g/dL (11.5-15.4); Immature Granulocytes % 0.1 % (0-4); Lymphocytes # 1.1 K/mcL (0.6-4.6); Lymphocytes % 15.1 %; Mean Corpuscular HGB Conc 34.2 g/dL (31.6-35.5); Mean Corpuscular Hemoglobin 29.2 pg (28.0-33.3); Mean Corpuscular Volume 85.4 fL (83.0-100.0); Monocytes # 0.7 K/mcL (0.0-1.3); Monocytes % 10.1 %; Neutrophils # 5.1 K/mcL (1.6-8.9); Platelet Count 217 K/mcL (140-400); Red Blood Count 4.04 M/mcL (3.82-4.97); Red Cell Distribution Width 13.4 % (11.5-14.5); Segmented Neutrophils % 73.4 %
[2022-04-16 16:00] LABS: Bacteria,Urine Few per hpf (None-Few); Bilirubin,Urine Negative (Negative); Blood,Urine Moderate (Negative); Clarity,Urine Clear (Clear); Color,Urine Light-Yellow (Yellow); Glucose,Urine (UA) Normal (Normal); Ketones,Urine Negative (Negative); Leukocyte Esterase,Urine Negative (Negative); Mucus,Urine Few per lpf (None-Few); Nitrite,Urine Negative (Negative); Protein,Urine Negative (Neg-Trace); Urobilinogen,Urine Normal (Normal)
[2022-04-16 16:23] LABS: Alanine Aminotransferase 8 Units/L (7-52); Albumin 3.8 g/dL (3.5-5.7); Albumin/Globulin Ratio 1.5 (1.1-2.2); Alkaline Phosphatase 52 Units/L (34-104); Aspartate Amino Transferase 12 Units/L (13-39); BUN/Creatinine Ratio 22 (6-26); Bilirubin,Total 0.7 mg/dL (0.3-1.0); Blood Urea Nitrogen 12 mg/dL (8-23); Calcium 9.3 mg/dL (8.6-10.3); Carbon Dioxide 27 mEq/L (23-29); Chloride 93 mEq/L (98-107); Globulin 2.5 g/dL (2.4-3.5); Glucose 96 mg/dL (70-105); Osmolality,Calculated 260 (280-300); Potassium 4.1 mEq/L (3.5-5.1); Sodium 125 mEq/L (136-145); Total Protein 6.3 g/dL (6.4-8.9); Troponin I < 0.03 ng/mL (< 0.04); eGFR For African Americans > 60 (> 60); eGFR For Non-African Americans > 60 (> 60)
[2022-04-16] MEDS ORDERED: Ondansetron 4 MG/2 ML VIAL IVP PRN (22:09)
[2022-04-16] MEDS ORDERED: Naloxone 0.4 MG/ML INJ IVP PRN (22:09)
[2022-04-16 23:05] LABS: BUN/Creatinine Ratio 23 (6-26); Blood Urea Nitrogen 12 mg/dL (8-23); Calcium 9.3 mg/dL (8.6-10.3); Carbon Dioxide 25 mEq/L (23-29); Chloride 96 mEq/L (98-107); Glucose 142 mg/dL (70-105); Osmolality,Calculated 268 (280-300); Potassium 4.1 mEq/L (3.5-5.1); Sodium 128 mEq/L (136-145); eGFR For African Americans > 60 (> 60); eGFR For Non-African Americans > 60 (> 60)
[2022-04-17] MEDS ORDERED: 0.9 % Sodium Chloride 1,000 ML IVC SCH ×2 (01:00→14:00)
[2022-04-17 04:49] LABS: Hematocrit 34.5 % (35.3-44.9); Hemoglobin 11.8 g/dL (11.5-15.4); Immature Granulocytes % 0.5 % (0-4); Lymphocytes # 0.4 K/mcL (0.6-4.6); Lymphocytes % 11.5 %; Mean Corpuscular HGB Conc 34.2 g/dL (31.6-35.5); Mean Corpuscular Hemoglobin 29.1 pg (28.0-33.3); Mean Corpuscular Volume 85.2 fL (83.0-100.0); Mean Platelet Volume 9.3 fL (9.4-12.4); Monocytes # 0.1 K/mcL (0.0-1.3); Monocytes % 2.9 %; Neutrophils # 3.3 K/mcL (1.6-8.9); Platelet Count 241 K/mcL (140-400); Red Blood Count 4.05 M/mcL (3.82-4.97); Red Cell Distribution Width 13.2 % (11.5-14.5); Segmented Neutrophils % 85.1 %; White Blood Count 3.8 K/mcL (4.3-11.1)
[2022-04-17 04:59] LABS: INR 1.1; Prothrombin Time 12.2 Seconds (9.4-12.1)
[2022-04-17 05:16] LABS: Alanine Aminotransferase 8 Units/L (7-52); Albumin 3.8 g/dL (3.5-5.7); Albumin/Globulin Ratio 1.5 (1.1-2.2); Alkaline Phosphatase 50 Units/L (34-104); Aspartate Amino Transferase 10 Units/L (13-39); BUN/Creatinine Ratio 27 (6-26); Bilirubin,Total 0.6 mg/dL (0.3-1.0); Blood Urea Nitrogen 16 mg/dL (8-23); Calcium 9.4 mg/dL (8.6-10.3); Carbon Dioxide 25 mEq/L (23-29); Chloride 96 mEq/L (98-107); Chol/HDL Ratio 2.6 (0-4.9); Cholesterol 184 mg/dL (< 200); Globulin 2.5 g/dL (2.4-3.5); Glucose 132 mg/dL (70-105); HDL Cholesterol 72 mg/dL (40-59); LDL Cholesterol,Calculated 104 mg/dL (< 100); Osmolality,Calculated 269 (280-300); Potassium 4.1 mEq/L (3.5-5.1); Sodium 128 mEq/L (136-145); Total Protein 6.3 g/dL (6.4-8.9); Triglycerides 40 mg/dL (< 150); Troponin I < 0.03 ng/mL (< 0.04); eGFR For African Americans > 60 (> 60); eGFR For Non-African Americans > 60 (> 60)
[2022-04-17 05:30] LABS: Estimated Average Glucose 120 mg/dl; Hemoglobin A1C 5.8 %
[2022-04-17] MEDS ORDERED: Perflutren Lipid Microsphere 1.3 ML in 0.9 % Sodium Chloride 8.7 ML IVP PRN (06:12)
[2022-04-17] MEDS ORDERED: Gadolinium Contrast Agent (WT Based) IV PRN (08:58)
[2022-04-17] MEDS ORDERED: valACYclovir 500 MG TABLET PO PRN (13:44)
[2022-04-17] MEDS: cefTRIAXone 1,000 MG in 0.9 % Sodium Chloride 10 ML IVP SCH (14:09)
[2022-04-17] MEDS ORDERED: E-Z-HD (BARIUM SULF) SUSPENSION PO ONE (14:57)
[2022-04-17] MEDS ORDERED: E-Z-PAQUE (BARIUM SULF) SUSP 1 BOTTLE PO ONE (14:57)
[2022-04-17 16:39] LABS: BUN/Creatinine Ratio 40 (6-26); Blood Urea Nitrogen 25 mg/dL (8-23); Calcium 9.2 mg/dL (8.6-10.3); Carbon Dioxide 25 mEq/L (23-29); Chloride 97 mEq/L (98-107); Glucose 103 mg/dL (70-105); Osmolality,Calculated 273 (280-300); Potassium 4.2 mEq/L (3.5-5.1); Sodium 129 mEq/L (136-145); eGFR For African Americans > 60 (> 60); eGFR For Non-African Americans > 60 (> 60)
[2022-04-17] MEDS ORDERED: GADOBUTROL 30 MMOL/30 ML VIAL IVP ONE (17:03)
[2022-04-17] MEDS ORDERED: CYCLOSPORINE BOTH EYES SCH (21:00)
[2022-04-18 05:37] LABS: Basophils % 0.4 %; Eosinophils % 0.5 %; Hematocrit 30.8 % (35.3-44.9); Hemoglobin 10.6 g/dL (11.5-15.4); Immature Granulocytes % 0.3 % (0-4); Lymphocytes # 1.2 K/mcL (0.6-4.6); Lymphocytes % 15.8 %; Mean Corpuscular HGB Conc 34.4 g/dL (31.6-35.5); Mean Corpuscular Hemoglobin 29.4 pg (28.0-33.3); Mean Corpuscular Volume 85.6 fL (83.0-100.0); Mean Platelet Volume 9.3 fL (9.4-12.4); Monocytes # 0.8 K/mcL (0.0-1.3); Monocytes % 10.6 %; Neutrophils # 5.7 K/mcL (1.6-8.9); Platelet Count 233 K/mcL (140-400); Red Cell Distribution Width 13.7 % (11.5-14.5); Segmented Neutrophils % 72.4 %
[2022-04-18 05:38] LABS: White Blood Count 7.8 K/mcL (4.3-11.1)
[2022-04-18 06:02] LABS: BUN/Creatinine Ratio 39 (6-26); Blood Urea Nitrogen 23 mg/dL (8-23); Calcium 8.9 mg/dL (8.6-10.3); Carbon Dioxide 27 mEq/L (23-29); Chloride 100 mEq/L (98-107); Glucose 105 mg/dL (70-105); Magnesium 2.2 mg/dL (1.6-2.6); Osmolality,Calculated 278 (280-300); Phosphorous 3.6 mg/dL (2.7-4.5); Potassium 4.2 mEq/L (3.5-5.1); Sodium 132 mEq/L (136-145); eGFR For African Americans > 60 (> 60); eGFR For Non-African Americans > 60 (> 60)
[2022-04-18] MEDS: Aspirin Enteric Coated 81 MG Tablet PO SCH (08:22)
[2022-04-18] MEDS: Loratadine 10 MG TABLET PO SCH (08:22)
[2022-04-18] MEDS: amLODIPine 5 MG TABLET PO SCH (08:22)
[2022-04-18] MEDS: Cyanocobalamin (B-12) 1,000 MCG TABLET PO SCH (08:23)
[2022-04-18] MEDS: *HR* LORazepam 1 MG TABLET PO PRN ×2 (08:23→21:05)
[2022-04-18] MEDS: cefTRIAXone 1,000 MG in 0.9 % Sodium Chloride 10 ML IVP SCH (08:26)
[2022-04-19] MEDS: Cyanocobalamin (B-12) 1,000 MCG TABLET PO SCH (10:15)
[2022-04-19] MEDS: Aspirin Enteric Coated 81 MG Tablet PO SCH (10:15)
[2022-04-19] MEDS: Loratadine 10 MG TABLET PO SCH (10:16)
[2022-04-19] MEDS: *HR* LORazepam 1 MG TABLET PO PRN (10:16)
[2022-04-19] MEDS: amLODIPine 5 MG TABLET PO SCH (10:16)
[2022-04-19] MEDS: cefTRIAXone 1,000 MG in 0.9 % Sodium Chloride 10 ML IVP SCH (10:26)
[2022-04-20] MEDS: Aspirin Enteric Coated 81 MG Tablet PO SCH (09:10)
[2022-04-20] MEDS: amLODIPine 5 MG TABLET PO SCH (09:10)
[2022-04-20] MEDS: cefTRIAXone 1,000 MG in 0.9 % Sodium Chloride 10 ML IVP SCH (09:10)
[2022-04-20] MEDS: Loratadine 10 MG TABLET PO SCH (09:10)
[2022-04-20] MEDS: Cyanocobalamin (B-12) 1,000 MCG TABLET PO SCH (09:10)
[2022-04-21] MEDS: Loratadine 10 MG TABLET PO SCH (09:39)
[2022-04-21] MEDS: Aspirin Enteric Coated 81 MG Tablet PO SCH (09:39)
[2022-04-21] MEDS: Cyanocobalamin (B-12) 1,000 MCG TABLET PO SCH (09:39)
[2022-04-21] MEDS: amLODIPine 5 MG TABLET PO SCH (09:39)
[2022-04-21] MEDS: *HR* LORazepam 1 MG TABLET PO PRN ×2 (09:52→21:45)
[2022-04-22] MEDS: Loratadine 10 MG TABLET PO SCH (08:38)
[2022-04-22] MEDS: amLODIPine 5 MG TABLET PO SCH (08:38)
[2022-04-22] MEDS: Aspirin Enteric Coated 81 MG Tablet PO SCH (08:39)
[2022-04-22] MEDS: Cyanocobalamin (B-12) 1,000 MCG TABLET PO SCH (08:39)
[2022-04-22 11:09] VITALS: BP 125/66; PULSE 96; TEMP 98; O2SAT 96
[2022-04-22 12:34] LABS: Influenza A PCR Negative (Negative); Influenza B PCR Negative (Negative); Resp. Syncytial Virus PCR Negative (Negative)
[2022-04-22 12:56] LABS: SARS-CoV-2 by PCR (In House) Negative (Negative)
== END 2022-04-22 16:16 | DRG 64 ==
LOC: EMEROOARM 13:53 → 2ANU 13:53 → SUATTDRO 20:27 → 3BNU 20:32 → SUATTDRO 04-19 07:33
PROVIDERS: ADMIT Family Medicine; ATTEND Internal Medicine

== ENCOUNTER 2022-05-15 00:01 | Observation (INO) ==
[2022-05-15] MEDS ORDERED: Famotidine 20 MG/2 ML VIAL IVP ONE (00:29)
[2022-05-15] MEDS ORDERED: Ondansetron 4 MG/2 ML VIAL IVP ONE (00:29)
[2022-05-15] MEDS ORDERED: Morphine Sulfate 2 MG/ML SYRINGE IVP ONE (00:29)
[2022-05-15] MEDS ORDERED: 0.9 % Sodium Chloride 1,000 ML IVC ONE (00:58)
[2022-05-15] MEDS ORDERED: 0.9 % Sodium Chloride 1,000 ML ONE (01:00)
[2022-05-15 01:35] LABS: Basophils % 0.2 %; Hematocrit 37.5 % (35.3-44.9); Hemoglobin 12.8 g/dL (11.5-15.4); Immature Granulocytes % 0.3 % (0-4); Lymphocytes # 0.7 K/mcL (0.6-4.6); Lymphocytes % 5.3 %; Mean Corpuscular HGB Conc 34.1 g/dL (31.6-35.5); Mean Corpuscular Hemoglobin 29.2 pg (28.0-33.3); Mean Corpuscular Volume 85.6 fL (83.0-100.0); Mean Platelet Volume 8.6 fL (9.4-12.4); Monocytes # 0.6 K/mcL (0.0-1.3); Monocytes % 4.6 %; Neutrophils # 12.4 K/mcL (1.6-8.9); Platelet Count 244 K/mcL (140-400); Red Blood Count 4.38 M/mcL (3.82-4.97); Red Cell Distribution Width 12.9 % (11.5-14.5); Segmented Neutrophils % 89.6 %; White Blood Count 13.9 K/mcL (4.3-11.1)
[2022-05-15 01:49] LABS: Alanine Aminotransferase 11 Units/L (7-52); Albumin 3.9 g/dL (3.5-5.7); Albumin/Globulin Ratio 1.4 (1.1-2.2); Alkaline Phosphatase 56 Units/L (34-104); Aspartate Amino Transferase 11 Units/L (13-39); BUN/Creatinine Ratio 29 (6-26); Bilirubin,Total 0.6 mg/dL (0.3-1.0); Blood Urea Nitrogen 20 mg/dL (8-23); Calcium 9.5 mg/dL (8.6-10.3); Carbon Dioxide 23 mEq/L (23-29); Chloride 93 mEq/L (98-107); Globulin 2.7 g/dL (2.4-3.5); Glucose 160 mg/dL (70-105); Lipase 40 Units/L (11-82); Osmolality,Calculated 268 (280-300); Potassium 4.1 mEq/L (3.5-5.1); Sodium 126 mEq/L (136-145); Total Protein 6.6 g/dL (6.4-8.9); Troponin I < 0.03 ng/mL (< 0.04); eGFR For African Americans > 60 (> 60); eGFR For Non-African Americans > 60 (> 60)
[2022-05-15 03:41] LABS: Bilirubin,Urine Negative (Negative); Blood,Urine Moderate (Negative); Clarity,Urine Clear (Clear); Color,Urine Light-Yellow (Yellow); Glucose,Urine (UA) 30 mg/dL (Normal); Hyaline Casts,Urine Few per lpf (None Seen); Ketones,Urine Negative (Negative); Leukocyte Esterase,Urine Negative (Negative); Mucus,Urine Few per lpf (None-Few); Nitrite,Urine Negative (Negative); PH,Urine 6.5 pH Units (5.0-8.0); Protein,Urine 30 mg/dL (Neg-Trace); RBC,Urine 15-30 per hpf (0-3); Specific Gravity,Urine 1.015 (1.010-1.025); Urobilinogen,Urine Normal (Normal)
[2022-05-15 03:42] LABS: Sodium, Urine 53.6 mEq/L
[2022-05-15] MEDS ORDERED: Naloxone 0.4 MG/ML INJ IVP PRN (07:41)
[2022-05-15] MEDS ORDERED: Melatonin 3 MG TABLET PO PRN (07:41)
[2022-05-15] MEDS ORDERED: Acetaminophen 325 MG TABLET PO PRN (07:41)
[2022-05-15] MEDS ORDERED: Ondansetron 4 MG/2 ML VIAL IVP PRN (07:41)
[2022-05-15] MEDS ORDERED: Ketorolac 30 MG/ML VIAL IVP PRN (08:48)
[2022-05-15] MEDS: 0.9 % Sodium Chloride 1,000 ML IVC SCH ×2 (09:37→21:14)
[2022-05-15] MEDS: *HR* LORazepam 0.5 MG TABLET PO PRN (09:43)
[2022-05-15] MEDS: amLODIPine 5 MG TABLET PO SCH (09:45)
[2022-05-15] MEDS: Aspirin Enteric Coated 81 MG Tablet PO SCH (09:45)
[2022-05-15] MEDS: Budesonide Neb 0.5 MG/2 ML IH SCH ×2 (11:02→20:29)
[2022-05-16 01:56] LABS: BUN/Creatinine Ratio 37 (6-26); Blood Urea Nitrogen 19 mg/dL (8-23); Calcium 7.8 mg/dL (8.6-10.3); Carbon Dioxide 23 mEq/L (23-29); Chloride 104 mEq/L (98-107); Glucose 98 mg/dL (70-105); Magnesium 1.9 mg/dL (1.6-2.6); Osmolality,Calculated 272 (280-300); Phosphorous 2.6 mg/dL (2.7-4.5); Potassium 3.8 mEq/L (3.5-5.1); Sodium 130 mEq/L (136-145); eGFR For African Americans > 60 (> 60); eGFR For Non-African Americans > 60 (> 60)
[2022-05-16] MEDS: *HR* LORazepam 0.5 MG TABLET PO PRN ×2 (06:34→22:07)
[2022-05-16] MEDS: *HR* Enoxaparin 40 MG/0.4 ML SYRINGE SQ SCH (06:34)
[2022-05-16] MEDS: Budesonide Neb 0.5 MG/2 ML IH SCH ×2 (08:07→20:25)
[2022-05-16] MEDS ORDERED: E-Z-PAQUE (BARIUM SULF) SUSP 1 BOTTLE PO ONE (10:54)
[2022-05-16] MEDS: Aspirin Enteric Coated 81 MG Tablet PO SCH (11:23)
[2022-05-16] MEDS: amLODIPine 5 MG TABLET PO SCH (11:23)
[2022-05-16] MEDS: 0.9 % Sodium Chloride 1,000 ML IVC SCH ×2 (11:30→21:53)
[2022-05-16] MEDS ORDERED: *HR* Dextrose 50 % in Water (Syg) 50 ML SYRINGE IVP PRN (18:39)
[2022-05-16] MEDS ORDERED: Dextrose Gel 15 GM/37.5 ML TUBE PO PRN ×2 (18:39)
[2022-05-16] MEDS ORDERED: D5% in Water 1,000 ML IVC PRN (18:39)
[2022-05-16] MEDS: Mirtazapine 15 MG TABLET PO SCH (21:54)
[2022-05-17] MEDS: *HR* Enoxaparin 40 MG/0.4 ML SYRINGE SQ SCH (05:26)
[2022-05-17] MEDS: Budesonide Neb 0.5 MG/2 ML IH SCH ×2 (08:03→20:17)
[2022-05-17] MEDS: Aspirin Enteric Coated 81 MG Tablet PO SCH (09:38)
[2022-05-17] MEDS: amLODIPine 5 MG TABLET PO SCH (09:38)
[2022-05-17] MEDS: Sennosides/Docusate Sodium TABLET PO SCH ×2 (14:59→20:41)
[2022-05-17] MEDS: polyethylene glycoL 3350 17 GM POWD.PACK PO SCH (14:59)
[2022-05-17] MEDS: 0.9 % Sodium Chloride 1,000 ML IVC SCH ×2 (15:08→20:38)
[2022-05-17] MEDS: *HR* LORazepam 0.5 MG TABLET PO PRN (19:42)
[2022-05-17] MEDS: Mirtazapine 15 MG TABLET PO SCH (20:40)
[2022-05-18] MEDS: 0.9 % Sodium Chloride 1,000 ML IVC SCH (02:01)
[2022-05-18] MEDS: *HR* Enoxaparin 40 MG/0.4 ML SYRINGE SQ SCH (05:49)
[2022-05-18] MEDS: Budesonide Neb 0.5 MG/2 ML IH SCH ×2 (07:51→20:13)
[2022-05-18] MEDS: polyethylene glycoL 3350 17 GM POWD.PACK PO SCH (08:51)
[2022-05-18] MEDS: Sennosides/Docusate Sodium TABLET PO SCH ×2 (08:51→20:43)
[2022-05-18] MEDS: Aspirin Enteric Coated 81 MG Tablet PO SCH (08:51)
[2022-05-18] MEDS: amLODIPine 5 MG TABLET PO SCH (08:51)
[2022-05-18] MEDS: *HR* LORazepam 0.5 MG TABLET PO PRN ×2 (08:51→20:49)
[2022-05-19] MEDS: *HR* Enoxaparin 40 MG/0.4 ML SYRINGE SQ SCH (05:39)
[2022-05-19] MEDS: Mirtazapine 15 MG TABLET PO SCH ×2 (07:20→22:06)
[2022-05-19] MEDS: amLODIPine 5 MG TABLET PO SCH (09:32)
[2022-05-19] MEDS: *HR* LORazepam 0.5 MG TABLET PO PRN ×2 (09:32→22:06)
[2022-05-19] MEDS: Aspirin Enteric Coated 81 MG Tablet PO SCH (09:32)
[2022-05-19] MEDS: Sennosides/Docusate Sodium TABLET PO SCH ×2 (09:32→22:06)
[2022-05-19] MEDS: polyethylene glycoL 3350 17 GM POWD.PACK PO SCH (09:32)
[2022-05-19] MEDS: Budesonide Neb 0.5 MG/2 ML IH SCH ×2 (10:49→19:46)
[2022-05-20] MEDS: *HR* Enoxaparin 40 MG/0.4 ML SYRINGE SQ SCH (07:07)
[2022-05-20] MEDS: Budesonide Neb 0.5 MG/2 ML IH SCH (07:40)
[2022-05-20] MEDS: polyethylene glycoL 3350 17 GM POWD.PACK PO SCH (10:42)
[2022-05-20] MEDS: Sennosides/Docusate Sodium TABLET PO SCH (10:43)
[2022-05-20] MEDS: Aspirin Enteric Coated 81 MG Tablet PO SCH (10:43)
[2022-05-20] MEDS: *HR* LORazepam 0.5 MG TABLET PO PRN (10:43)
[2022-05-20] MEDS: amLODIPine 5 MG TABLET PO SCH (10:43)
[2022-05-20 15:26] VITALS: BP 117/73; PULSE 100; TEMP 98; O2SAT 98
== END 2022-05-20 17:40 | disposition home health service (06) ==
LOC: 3ANU 00:01 → EMEROOARM 00:01 → SUATTDRO 06:51 → 3ANU 07:55
PROVIDERS: ADMIT Internal Medicine; ATTEND Internal Medicine

== ENCOUNTER 2022-07-29 12:55 | Inpatient (IN) ==
[2022-07-29] MEDS ORDERED: Iopamidol - 370 500 ML MLS IVP ONE (14:39)
[2022-07-29 15:21] LABS: Basophils % 0.5 %; Eosinophils % 0.3 %; Hematocrit 38.8 % (35.3-44.9); Immature Granulocytes % 0.3 % (0-4); Lymphocytes # 1.2 K/mcL (0.6-4.6); Lymphocytes % 16.9 %; Mean Corpuscular HGB Conc 33.5 g/dL (31.6-35.5); Mean Corpuscular Hemoglobin 28.3 pg (28.0-33.3); Mean Corpuscular Volume 84.5 fL (83.0-100.0); Mean Platelet Volume 8.8 fL (9.4-12.4); Monocytes # 0.7 K/mcL (0.0-1.3); Monocytes % 9.7 %; Neutrophils # 5.3 K/mcL (1.6-8.9); Platelet Count 201 K/mcL (140-400); Red Blood Count 4.59 M/mcL (3.82-4.97); Red Cell Distribution Width 13.4 % (11.5-14.5); Segmented Neutrophils % 72.3 %; White Blood Count 7.4 K/mcL (4.3-11.1)
[2022-07-29 15:43] LABS: Alanine Aminotransferase 7 Units/L (7-52); Albumin 4.4 g/dL (3.5-5.7); Albumin/Globulin Ratio 1.5 (1.1-2.2); Alkaline Phosphatase 51 Units/L (34-104); Aspartate Amino Transferase 13 Units/L (13-39); BUN/Creatinine Ratio 17 (6-26); Bilirubin,Total 0.5 mg/dL (0.3-1.0); Blood Urea Nitrogen 10 mg/dL (8-23); Calcium 9.8 mg/dL (8.6-10.3); Carbon Dioxide 28 mEq/L (23-29); Chloride 94 mEq/L (98-107); Globulin 2.9 g/dL (2.4-3.5); Glucose 108 mg/dL (70-105); Osmolality,Calculated 268 (280-300); Potassium 3.8 mEq/L (3.5-5.1); Sodium 129 mEq/L (136-145); Total Protein 7.3 g/dL (6.4-8.9)
[2022-07-29 15:44] LABS: Troponin I < 0.03 ng/mL (< 0.04)
[2022-07-29 16:05] LABS: Influenza A PCR Negative (Negative); Influenza B PCR Negative (Negative); Resp. Syncytial Virus PCR Negative (Negative)
[2022-07-29 16:06] LABS: SARS-CoV-2 by PCR (In House) Negative (Negative)
[2022-07-29 16:11] LABS: Bilirubin,Urine Negative (Negative); Blood,Urine Moderate (Negative); Clarity,Urine Clear (Clear); Color,Urine Colorless (Yellow); Glucose,Urine (UA) Normal (Normal); Ketones,Urine Negative (Negative); Leukocyte Esterase,Urine Small (Negative); Mucus,Urine Few per lpf (None-Few); Nitrite,Urine Negative (Negative); Protein,Urine Negative (Neg-Trace); RBC,Urine 30-50 per hpf (0-3); Specific Gravity,Urine 1.007 (1.010-1.025); Urobilinogen,Urine Normal (Normal)
[2022-07-29] MEDS ORDERED: cefTRIAXone 1,000 MG in 0.9 % Sodium Chloride 10 ML IVP ONE (17:00)
[2022-07-29] MEDS ORDERED: Naloxone 0.4 MG/ML INJ IVP PRN (17:44)
[2022-07-29] MEDS ORDERED: Ondansetron 4 MG/2 ML VIAL IVP PRN (17:44)
[2022-07-29] MEDS ORDERED: 0.9 % Sodium Chloride 1,000 ML IVC SCH (17:45)
[2022-07-29] MEDS: *HR* Heparin 5,000 UNIT/ML VIAL SQ SCH (19:40)
[2022-07-30 03:17] LABS: Basophils # 0.1 K/mcL (0.0-0.2); Basophils % 0.9 %; Eosinophils # 0.1 K/mcL (0.0-0.6); Eosinophils % 1.6 %; Hematocrit 34.3 % (35.3-44.9); Hemoglobin 11.6 g/dL (11.5-15.4); Immature Granulocytes % 0.4 % (0-4); Lymphocytes # 1.5 K/mcL (0.6-4.6); Lymphocytes % 28.2 %; Mean Corpuscular HGB Conc 33.8 g/dL (31.6-35.5); Mean Corpuscular Hemoglobin 28.4 pg (28.0-33.3); Mean Corpuscular Volume 83.9 fL (83.0-100.0); Mean Platelet Volume 9.3 fL (9.4-12.4); Monocytes # 0.7 K/mcL (0.0-1.3); Monocytes % 12.1 %; Neutrophils # 3.1 K/mcL (1.6-8.9); Platelet Count 196 K/mcL (140-400); Red Blood Count 4.09 M/mcL (3.82-4.97); Red Cell Distribution Width 13.6 % (11.5-14.5); Segmented Neutrophils % 56.8 %; White Blood Count 5.5 K/mcL (4.3-11.1)
[2022-07-30 03:40] LABS: BUN/Creatinine Ratio 20 (6-26); Blood Urea Nitrogen 10 mg/dL (8-23); Calcium 8.8 mg/dL (8.6-10.3); Carbon Dioxide 27 mEq/L (23-29); Chloride 100 mEq/L (98-107); Glucose 77 mg/dL (70-105); Osmolality,Calculated 274 (280-300); Potassium 3.6 mEq/L (3.5-5.1); Sodium 133 mEq/L (136-145)
[2022-07-30] MEDS: *HR* Heparin 5,000 UNIT/ML VIAL SQ SCH ×2 (05:55→16:24)
[2022-07-30] MEDS: amLODIPine 5 MG TABLET PO SCH ×2 (13:31→20:00)
[2022-07-30] MEDS: Aspirin Enteric Coated 81 MG Tablet PO SCH (13:31)
[2022-07-30] MEDS: *HR* LORazepam 1 MG TABLET PO SCH ×2 (13:31→20:00)
[2022-07-30] MEDS ORDERED: cefTRIAXone 1,000 MG in 0.9 % Sodium Chloride 10 ML IVP SCH (17:00)
[2022-07-30] MEDS: Cyclosporine [Restasis Multidose] 5.5 ML Drops OP SCH (20:01)
[2022-07-30] MEDS: Budesonide Neb 0.5 MG/2 ML IH SCH (22:53)
[2022-07-31] MEDS: *HR* Heparin 5,000 UNIT/ML VIAL SQ SCH ×2 (05:56→16:56)
[2022-07-31] MEDS: Budesonide Neb 0.5 MG/2 ML IH SCH ×2 (07:29→21:23)
[2022-07-31] MEDS: Cyclosporine [Restasis Multidose] 5.5 ML Drops OP SCH ×2 (08:52→21:57)
[2022-07-31] MEDS: Aspirin Enteric Coated 81 MG Tablet PO SCH (08:52)
[2022-07-31] MEDS: Sennosides/Docusate Sodium TABLET PO SCH (08:52)
[2022-07-31] MEDS: *HR* LORazepam 1 MG TABLET PO SCH ×2 (08:52→21:56)
[2022-07-31] MEDS: Cyanocobalamin (B-12) 1,000 MCG TABLET PO SCH (08:52)
[2022-07-31] MEDS: amLODIPine 5 MG TABLET PO SCH ×2 (08:52→21:57)
[2022-07-31] MEDS: Loratadine 10 MG TABLET PO SCH (08:52)
[2022-08-01] MEDS: *HR* Heparin 5,000 UNIT/ML VIAL SQ SCH ×2 (05:13→16:50)
[2022-08-01] MEDS: Budesonide Neb 0.5 MG/2 ML IH SCH ×2 (07:28→22:46)
[2022-08-01] MEDS: Cyanocobalamin (B-12) 1,000 MCG TABLET PO SCH (07:56)
[2022-08-01] MEDS: Aspirin Enteric Coated 81 MG Tablet PO SCH (07:57)
[2022-08-01] MEDS: amLODIPine 5 MG TABLET PO SCH ×2 (07:57→20:08)
[2022-08-01] MEDS: Loratadine 10 MG TABLET PO SCH (07:57)
[2022-08-01] MEDS: Sennosides/Docusate Sodium TABLET PO SCH ×2 (07:57→20:08)
[2022-08-01] MEDS: *HR* LORazepam 1 MG TABLET PO SCH ×2 (07:57→20:08)
[2022-08-01] MEDS: Cyclosporine [Restasis Multidose] 5.5 ML Drops OP SCH (08:00)
[2022-08-02] MEDS: *HR* Heparin 5,000 UNIT/ML VIAL SQ SCH ×2 (05:58→15:53)
[2022-08-02] MEDS: Budesonide Neb 0.5 MG/2 ML IH SCH ×2 (07:37→20:02)
[2022-08-02] MEDS: Aspirin Enteric Coated 81 MG Tablet PO SCH (08:52)
[2022-08-02] MEDS: Cyanocobalamin (B-12) 1,000 MCG TABLET PO SCH (08:52)
[2022-08-02] MEDS: *HR* LORazepam 1 MG TABLET PO SCH ×2 (08:52→20:22)
[2022-08-02] MEDS: Loratadine 10 MG TABLET PO SCH (08:52)
[2022-08-02] MEDS: Sennosides/Docusate Sodium TABLET PO SCH ×2 (08:53→20:22)
[2022-08-02] MEDS: amLODIPine 5 MG TABLET PO SCH ×2 (08:53→20:21)
[2022-08-02] MEDS ORDERED: Ibuprofen 400 MG TABLET PO ONE (10:37)
[2022-08-02] MEDS: Acetaminophen/Aspirin/Caffeine TABLET PO PRN (12:19)
[2022-08-03] MEDS: *HR* Heparin 5,000 UNIT/ML VIAL SQ SCH ×2 (05:12→18:37)
[2022-08-03] MEDS: Sennosides/Docusate Sodium TABLET PO SCH ×2 (09:26→20:08)
[2022-08-03] MEDS: amLODIPine 5 MG TABLET PO SCH ×2 (09:27→20:08)
[2022-08-03] MEDS: *HR* LORazepam 1 MG TABLET PO SCH ×2 (09:27→20:08)
[2022-08-03] MEDS: Aspirin Enteric Coated 81 MG Tablet PO SCH (09:27)
[2022-08-03] MEDS: Loratadine 10 MG TABLET PO SCH (09:27)
[2022-08-03] MEDS: Cyanocobalamin (B-12) 1,000 MCG TABLET PO SCH (09:27)
[2022-08-03] MEDS: Budesonide Neb 0.5 MG/2 ML IH SCH ×2 (10:09→22:53)
[2022-08-03 11:27] LABS: Basophils % 0.8 %; Eosinophils # 0.1 K/mcL (0.0-0.6); Eosinophils % 1.7 %; Immature Granulocytes % 0.4 % (0-4); Lymphocytes % 19.5 %; Mean Corpuscular HGB Conc 33.3 g/dL (31.6-35.5); Mean Corpuscular Hemoglobin 27.8 pg (28.0-33.3); Mean Corpuscular Volume 83.5 fL (83.0-100.0); Mean Platelet Volume 9.2 fL (9.4-12.4); Monocytes # 0.5 K/mcL (0.0-1.3); Monocytes % 9.9 %; Neutrophils # 3.5 K/mcL (1.6-8.9); Platelet Count 215 K/mcL (140-400); Red Blood Count 4.31 M/mcL (3.82-4.97); Red Cell Distribution Width 13.9 % (11.5-14.5); Segmented Neutrophils % 67.7 %; White Blood Count 5.2 K/mcL (4.3-11.1)
[2022-08-03 11:46] LABS: BUN/Creatinine Ratio 26 (6-26); Blood Urea Nitrogen 14 mg/dL (8-23); Calcium 9.1 mg/dL (8.6-10.3); Carbon Dioxide 27 mEq/L (23-29); Chloride 97 mEq/L (98-107); Glucose 108 mg/dL (70-105); Osmolality,Calculated 265 (280-300); Potassium 3.9 mEq/L (3.5-5.1); Sodium 127 mEq/L (136-145)
[2022-08-03] MEDS: Acetaminophen/Aspirin/Caffeine TABLET PO PRN (15:15)
[2022-08-03 20:53] LABS: Bacteria,Urine Few per hpf (None-Few); Bilirubin,Urine Negative (Negative); Blood,Urine Moderate (Negative); Clarity,Urine Clear (Clear); Color,Urine Dark-Yellow (Yellow); Glucose,Urine (UA) Normal (Normal); Ketones,Urine Negative (Negative); Leukocyte Esterase,Urine Moderate (Negative); Mucus,Urine Few per lpf (None-Few); Nitrite,Urine Positive (Negative); PH,Urine 6.5 pH Units (5.0-8.0); Protein,Urine Negative (Neg-Trace); Urobilinogen,Urine Normal (Normal); WBC,Urine 15-30 per hpf (0-3)
[2022-08-04 05:12] LABS: Basophils % 0.8 %; Eosinophils # 0.2 K/mcL (0.0-0.6); Eosinophils % 2.8 %; Hematocrit 32.7 % (35.3-44.9); Immature Granulocytes % 0.2 % (0-4); Lymphocytes # 1.3 K/mcL (0.6-4.6); Mean Corpuscular HGB Conc 33.6 g/dL (31.6-35.5); Mean Corpuscular Hemoglobin 28.2 pg (28.0-33.3); Mean Corpuscular Volume 83.8 fL (83.0-100.0); Mean Platelet Volume 9.2 fL (9.4-12.4); Monocytes # 0.6 K/mcL (0.0-1.3); Monocytes % 10.8 %; Neutrophils # 3.3 K/mcL (1.6-8.9); Platelet Count 181 K/mcL (140-400); Segmented Neutrophils % 61.4 %; White Blood Count 5.3 K/mcL (4.3-11.1)
[2022-08-04 05:19] LABS: Prothrombin Time 11.3 Seconds (9.4-12.1)
[2022-08-04 05:30] LABS: BUN/Creatinine Ratio 31 (6-26); Blood Urea Nitrogen 17 mg/dL (8-23); Carbon Dioxide 28 mEq/L (23-29); Chloride 96 mEq/L (98-107); Glucose 115 mg/dL (70-105); Osmolality,Calculated 264 (280-300); Potassium 4.2 mEq/L (3.5-5.1); Sodium 126 mEq/L (136-145)
[2022-08-04] MEDS: *HR* Heparin 5,000 UNIT/ML VIAL SQ SCH ×3 (05:48→15:57)
[2022-08-04] MEDS: *HR* LORazepam 1 MG TABLET PO SCH ×2 (08:55→20:15)
[2022-08-04] MEDS: amLODIPine 5 MG TABLET PO SCH ×2 (08:56→20:15)
[2022-08-04] MEDS: Sennosides/Docusate Sodium TABLET PO SCH ×2 (08:56→20:14)
[2022-08-04] MEDS: Loratadine 10 MG TABLET PO SCH (08:56)
[2022-08-04] MEDS: Cyanocobalamin (B-12) 1,000 MCG TABLET PO SCH (08:56)
[2022-08-04] MEDS: Budesonide Neb 0.5 MG/2 ML IH SCH ×2 (10:45→22:15)
[2022-08-04] MEDS: cefTRIAXone 1,000 MG in Water for inj. (sterile) 10 ML IVP SCH (14:02)
[2022-08-05] MEDS: *HR* Heparin 5,000 UNIT/ML VIAL SQ SCH ×2 (05:23→17:31)
[2022-08-05 06:17] LABS: Hematocrit 35.5 % (35.3-44.9); Hemoglobin 11.7 g/dL (11.5-15.4); Mean Corpuscular Volume 84.9 fL (83.0-100.0); Mean Platelet Volume 9.3 fL (9.4-12.4); Platelet Count 205 K/mcL (140-400); Red Blood Count 4.18 M/mcL (3.82-4.97); Red Cell Distribution Width 13.8 % (11.5-14.5); White Blood Count 4.7 K/mcL (4.3-11.1)
[2022-08-05 06:27] LABS: BUN/Creatinine Ratio 20 (6-26); Blood Urea Nitrogen 11 mg/dL (8-23); Calcium 9.2 mg/dL (8.6-10.3); Carbon Dioxide 29 mEq/L (23-29); Chloride 95 mEq/L (98-107); Glucose 91 mg/dL (70-105); Osmolality,Calculated 265 (280-300); Potassium 4.1 mEq/L (3.5-5.1); Sodium 128 mEq/L (136-145)
[2022-08-05] MEDS: Sennosides/Docusate Sodium TABLET PO SCH ×2 (08:43→19:31)
[2022-08-05] MEDS: *HR* LORazepam 1 MG TABLET PO SCH ×2 (08:44→19:31)
[2022-08-05] MEDS: Loratadine 10 MG TABLET PO SCH (08:44)
[2022-08-05] MEDS: amLODIPine 5 MG TABLET PO SCH ×2 (08:44→19:29)
[2022-08-05] MEDS: Cyanocobalamin (B-12) 1,000 MCG TABLET PO SCH (08:44)
[2022-08-05] MEDS: cefTRIAXone 1,000 MG in Water for inj. (sterile) 10 ML IVP SCH (08:50)
[2022-08-05] MEDS: Budesonide Neb 0.5 MG/2 ML IH SCH ×2 (10:48→22:21)
[2022-08-05] MEDS: Acetaminophen/Aspirin/Caffeine TABLET PO PRN (14:46)
[2022-08-05] MEDS ORDERED: Simethicone 80 MG TAB.CHEW PO PRN (20:15)
[2022-08-05] MEDS ORDERED: GI Cocktail 40 ML EACH PO ONE (20:15)
[2022-08-06 03:06] LABS: Hematocrit 32.2 % (35.3-44.9); Hemoglobin 10.9 g/dL (11.5-15.4); Mean Corpuscular HGB Conc 33.9 g/dL (31.6-35.5); Mean Corpuscular Hemoglobin 28.3 pg (28.0-33.3); Mean Corpuscular Volume 83.6 fL (83.0-100.0); Mean Platelet Volume 9.1 fL (9.4-12.4); Platelet Count 194 K/mcL (140-400); Red Blood Count 3.85 M/mcL (3.82-4.97); Red Cell Distribution Width 13.6 % (11.5-14.5)
[2022-08-06 03:32] LABS: BUN/Creatinine Ratio 16 (6-26); Blood Urea Nitrogen 9 mg/dL (8-23); Calcium 8.8 mg/dL (8.6-10.3); Carbon Dioxide 25 mEq/L (23-29); Chloride 93 mEq/L (98-107); Glucose 104 mg/dL (70-105); Osmolality,Calculated 259 (280-300); Potassium 4.1 mEq/L (3.5-5.1); Sodium 125 mEq/L (136-145)
[2022-08-06] MEDS: *HR* Heparin 5,000 UNIT/ML VIAL SQ SCH ×2 (05:59→18:54)
[2022-08-06] MEDS: amLODIPine 5 MG TABLET PO SCH (09:47)
[2022-08-06] MEDS: *HR* LORazepam 1 MG TABLET PO SCH (09:47)
[2022-08-06] MEDS: Loratadine 10 MG TABLET PO SCH (09:48)
[2022-08-06] MEDS: Sennosides/Docusate Sodium TABLET PO SCH (09:48)
[2022-08-06] MEDS: cefTRIAXone 1,000 MG in Water for inj. (sterile) 10 ML IVP SCH (09:48)
[2022-08-06] MEDS: Cyanocobalamin (B-12) 1,000 MCG TABLET PO SCH (09:48)
[2022-08-06] MEDS: Budesonide Neb 0.5 MG/2 ML IH SCH ×2 (10:51→19:58)
[2022-08-06] MEDS: Acetaminophen/Aspirin/Caffeine TABLET PO PRN (15:13)
[2022-08-06 16:13] LABS: Influenza A PCR Negative (Negative); Influenza B PCR Negative (Negative); Resp. Syncytial Virus PCR Negative (Negative)
[2022-08-06 16:23] LABS: SARS-CoV-2 by PCR (In House) Negative (Negative)
[2022-08-06 18:39] VITALS: BP 126/69; PULSE 99; TEMP 97.8
[2022-08-06 19:59] VITALS: O2SAT 97
== END 2022-08-06 20:31 | DRG 641 ==
LOC: EMEROOARM 12:55 → 3BNU 12:55 → SUATTDRO 17:34 → 3BNU 18:51 → SUATTDRO 08-04 13:30
PROVIDERS: ADMIT Internal Medicine; ATTEND Internal Medicine